=== PATIENT | female | born 1950 | race Caucasian/White ===

== ENCOUNTER 2020-06-10 14:31 | Outpatient (CLI) | payer MEDICARE, MEDICAID, SELFPAY ==
--- NOTE | 2020-06-10 | CT_ITS ---
WS: [id number] CT RIGHT KNEE, NONCONTRAST HISTORY: PATELLAR FX Technique: All CT scans at [facility] use at least one of these dose optimization techniq ues: automated exposure control; mA and/or kV adjustment per patient size (includes targeted exams wh ere dose is matched to clinical indication); or iterative reconstruction. DLP: 1289.89 mGycm COMPARISON: 05/31/2020 Nondisplaced complex flap fracture through the mid to inferior patella. There is no displacement or d istraction. No significant callus formation or healing. There is continued mild soft tissue edema ove r the anterior patella with no significant joint effusion. Very mild narrowing of the medial compartment. No additional fractures. CT/CT knee RT wo con* [id number] IMPRESSION: 1. Mildly comminuted but nondisplaced patellar fracture. No callus formation. 2. No additional fractures. 3. Mild persistent prepatellar soft tissue edema.
== END 2020-06-10 14:32 | disposition home or self-care (01) ==
LOC: RADWPI 14:37
PROVIDERS: Family Provider Internal Medicine; PCP Internal Medicine; Visit Provider Physician Assistant
DX: S82.044A Nondisplaced comminuted fracture of right patella, initial encounter for closed fracture (principal); X58.XXXA Exposure to other specified factors, initial encounter; R60.0 Localized edema
CPT/HCPCS: 73700

== ENCOUNTER 2020-07-07 10:44 | Emergency (ER) | payer MEDICARE, MEDICAID, SELFPAY ==
[2020-07-07 10:49] VITALS: BP 122/85; PULSE 93; RESP 18; TEMP 37.1; O2SAT 94; BMI 26.6
--- NOTE | 2020-07-07 11:17 | XR_ITS ---
WS: [id number] Portable AP upright chest, 07/07/2020 Clinical Data: cough, SOB Comparison: Frontal chest, 03/02/2017. Findings: There is a patchy opacity in the right lower lobe which may represent minimal pneumonia. Th e upper lobes are clear. There may also be a minimal patchy opacity in the left lower lobe. The aorti c arch and descending aorta are tortuous. No nodules, masses or effusions are seen. The heart is norm al. The pulmonary vascularity is not increased. No pneumothorax is seen. Osteoarthritis of the right shoulder is moderate. XR/XR chest 1V portable [id number] Impression: 1. Minimal patchy opacity in right lower lobe and also left lower lobe which co uld represent pneumonia and recommend repeat chest x-ray in one to 2 days. 2. Atherosclerosis.
--- NOTE | 2020-07-07 11:20 | ED_ITS ---
HPI - SOB/Dyspnea General: Chief Complaint: Shortness of Breath/Dyspnea Stated Complaint: SOB, EXPOSED TO COVID Time Seen by Provider: 07/07/20 11:04 Source: patient Mode of arrival: ambulatory Limitations: no limitations History of Present Illness: HPI Narrative: 70-year-old female patient with a history of diabetes mellitus and COPD who still smokes cigarettes presents to the emergency department with progressively worsening shortness of breath. He started with some sort of sinus issues about 3 weeks ago and progressively in the last week or so she feels like it has settled down in her lungs. She has difficulty breathing, uncontrollable cough, myalgias, but does not have a thermometer to check her temperature. MD elicited complaint: shortness of breath and cough Pertinent past history: COPD and diabetes Onset (ago): week(s) (3) Timing: constant and progressively worsening Severity: moderate Exacerbating factors: nothing Relieving factors: nothing Known history of: COPD and diabetes Associated symptoms: Reports chest congestion, chest pain, cough and myalgias; Deny abdominal pain, fever(s), nausea, palpitations, polydipsia, polyuria or vomiting Treatment prior to arrival: none Review of Systems General: Reports: 10 or more systems reviewed and unremarkable except in HPI and below Const: Denies: fever(s), chills or body aches Eyes: Denies: change in vision or blurry vision ENMT: Denies: throat pain, enlarged tonsils, odynophagia, hoarseness, mouth pain or swelling of lips/tongue Card: Reports: chest pain; Denies: palpitations, irregular heart rhythm, edema or swelling of feet/ankles Resp: Reports: chest congestion GI: Denies: abdominal pain, nausea or vomiting : Denies: flank pain, difficulty voiding, dysuria, urinary frequency, urinary urgency or urinary hesitancy Musc: Denies: neck pain, back pain or extremity swelling Skin/Breast: Denies: rash, pruritus or erythema Neuro: Denies: headache(s), numbness in extremities or weakness in extremities Endo: Denies: polyuria, polydipsia or tired all the time Physical Exam Const: COMMON NORMALS: no acute distress, average body habitus, patient oriented x3, no limitations, healthy appearing, alert and well nourished HENMT: COMMON NORMALS: normocephalic, atraumatic and moist oral mucous membranes HEAD & SCALP: normocephalic and atraumatic Neck/C-Spine: COMMON NORMALS: no meningeal signs and no JVD Chest: COMMONS NORMALS: normal inspection of the chest and normal palpation of entire chest wall Resp: COMMON NORMALS: normal respiratory effort, No retractions, No use of accessory muscles, clear to auscultation bilaterally and percussion normal AUSCULTATION: clear to auscultation bilaterally PERCUSSION: percussion normal Cardio: COMMON NORMALS: no JVD, regular rate, regular rhythm, S1 normal heart sound present, S2 normal heart sound present, No gallops present (Cardio), No clicks present (Cardio), No murmurs present (Cardio), No rub (Cardio) and Peripheral pulses 2+ throughout RATE: regular rate RHYTHM: regular rhythm HEART SOUNDS: S1 normal heart sound present and S2 normal heart sound present PERIPHERAL PULSES: Peripheral pulses 2+ throughout GI: COMMON NORMALS: Normal to inspection, nondistended, normoactive bowel sounds present, Soft to palpation, non-tender, No hepatosplenomegaly present, no masses and no bruits PALPATION: Yes Soft to palpation and Yes No hepatosplenomegaly present Extremity: COMMON NORMALS: normal to inspection, full ROM, capillary refill normal, no calf tenderness and no pedal edema Neuro: COMMON NORMALS: patient oriented x3 SENSORIUM/ORIENTATION: Yes alert MENINGEAL SIGNS: Yes no meningeal signs Skin: COMMON NORMALS: no rashes or lesions noted, no wounds, turgor normal, no jaundice, no petechiae and no mottling GENERAL SKIN EXAM: no rashes or lesions noted and turgor normal Course Reevaluation(s): Reevaluation #1: Discussed her lab and imaging findings with her. Chest x-ray suggestive of right lower lobe pneumonia, however CT of her lungs was negative for PE or pneumonia. Labs unremarkable for acute findings. We will manage as a case of COPD exacerbation I will discharge her home with oral steroids and azithromycin. She voiced understanding and is in agreement with the plan Time: 15:35 Vital Signs: Vital signs: Vital Signs Temperature 98.7 F 07/07/20 10:49 Pulse Rate 90 07/07/20 15:57 Respiratory Rate 20 H 07/07/20 15:57 Blood Pressure 110/85 07/07/20 15:57 Pulse Oximetry 94 07/07/20 15:57 MDM - SOB/Dyspnea MDM Narrative: Medical decision making narrative: Patient with clinical features consistent with a COPD exacerbation. She is discharged home with a prescription for azithromycin and prednisone. Evaluation does not show the need for hospital admission. Medical Records: Attestation: I reviewed the patient's medical records. Lab Data: Attestation: I reviewed the patient's lab results. Labs: Lab Results 07/07/20 07/07/20 07/07/20 Range/Units 11:35 11:35 11:35 WBC 9.3 (4.0-10.0) 10^3/ uL RBC 4.22 (4.1-5.3) 10^6/u L Hgb 13.0 (11.5-15.3) g/dL Hct 40.5 (37.0-47.0) % MCV 96.0 (81-99) fL MCH 30.8 (28.0-34.0) pg MCHC 32.1 (30.0-36.0) g/dL RDW 12.0 L (12.1-15.1) % Plt Count 226 (130-400) 10^3/c mm MPV 10.0 (7.4-10.4) fL Neut % (Auto) 66.2 % Lymph % (Auto) 25.2 % Potter % (Auto) 5.8 % Eos % (Auto) 1.8 % Baso % (Auto) 0.8 % Neut # (Auto) 6.18 (1.8-7.7) 10^3/u L Lymph # (Auto) 2.4 (0.8-4.8) 10^3/u L Potter # (Auto) 0.5 (0.2-0.9) 10^3/u L Eos # (Auto) 0.2 (0.0-0.8) 10^3/u L Baso # (Auto) 0.1 (0.0-0.1) 10^3/u L Nucleated RBC % (a uto) 0 % Nucleated RBCs # 0.0 /100WBC D-Dimer 0.69 H (0-0.59) ug/mIFE U Sodium 138 (136-145) mmol/L Potassium 4.7 (3.5-5.1) mmol/L Chloride 103 (98-107) mmol/L Carbon Dioxide 25 (22-29) mmol/L Anion Gap 14.7 (5-19) BUN 17 (8-23) mg/dL Creatinine 1.0 H (0.5-0.9) mg/dL GFR Calculation Not Reportable Glucose 137 H (65-115) mg/dL Calculated Osmolal ity 290 (285-295) mOsm/k g Lactic Acid (0.5-2.2) mmol/L Calcium 9.8 (8.5-10.5) mg/dL Total Bilirubin 0.3 (0.15-1.2) mg/dL AST 16 (0-32) U/L ALT 11 (0-33) U/L Alkaline Phosphata se 88 (35-105) IU/L C-Reactive Protein 3.2 (0.0-4.9) mg/L NT-Pro-B Natriuret Pep 74 (0-125) pg/mL Total Protein 7.1 (6.6-8.7) g/dL Albumin 4.3 (3.5-5.2) g/dL Globulin 2.8 (1.3-4.6) g/dL Influenza Type A A g (Negative) Influenza Type B A g (Negative) SARS-CoV-2 Ag (Rap id) (Negative) 07/07/20 07/07/20 07/07/20 Range/Units 11:35 11:35 12:11 WBC (4.0-10.0) 10^3/ uL RBC (4.1-5.3) 10^6/u L Hgb (11.5-15.3) g/dL Hct (37.0-47.0) % MCV (81-99) fL MCH (28.0-34.0) pg MCHC (30.0-36.0) g/dL RDW (12.1-15.1) % Plt Count (130-400) 10^3/c mm MPV (7.4-10.4) fL Neut % (Auto) % Lymph % (Auto) % Potter % (Auto) % Eos % (Auto) % Baso % (Auto) % Neut # (Auto) (1.8-7.7) 10^3/u L Lymph # (Auto) (0.8-4.8) 10^3/u L Potter # (Auto) (0.2-0.9) 10^3/u L Eos # (Auto) (0.0-0.8) 10^3/u L Baso # (Auto) (0.0-0.1) 10^3/u L Nucleated RBC % (a uto) % Nucleated RBCs # /100WBC D-Dimer (0-0.59) ug/mIFE U Sodium (136-145) mmol/L Potassium (3.5-5.1) mmol/L Chloride (98-107) mmol/L Carbon Dioxide (22-29) mmol/L Anion Gap (5-19) BUN (8-23) mg/dL Creatinine (0.5-0.9) mg/dL GFR Calculation Glucose (65-115) mg/dL Calculated Osmolal ity (285-295) mOsm/k g Lactic Acid 1.2 (0.5-2.2) mmol/L Calcium (8.5-10.5) mg/dL Total Bilirubin (0.15-1.2) mg/dL AST (0-32) U/L ALT (0-33) U/L Alkaline Phosphata se (35-105) IU/L C-Reactive Protein (0.0-4.9) mg/L NT-Pro-B Natriuret Pep (0-125) pg/mL Total Protein (6.6-8.7) g/dL Albumin (3.5-5.2) g/dL Globulin (1.3-4.6) g/dL Influenza Type A A g Negative (Negative) Influenza Type B A g Negative (Negative) SARS-CoV-2 Ag (Rap id) Negative (Negative) Imaging Data^: CXR: Radiologist's impression: [address] [address] XRay Report Signed Patient: Fany Moctezuma #: [id number] : 9Acct#:[id number] Age/Sex: 70 / FADM Date: 07/07/20 Loc: ERRoom/Bed: Attending Dr: Ordering Provider/Ordering MD: Cor[place] [facility] [place]: 07/07[place]20 Procedure(s): XR chest 1V portable [id number] Accession Number(s): [id number] Report Number: [id number] WS: [id number] Portable AP upright chest, 07/07/2020 Clinical Data: cough, SOB Comparison: Frontal chest, 03/02/2017. Findings: There is a patchy opacity in the right lower lobe which may represent minimal pneumonia. The upper lobes are clear. There may also be a minimal patchy opacity in the left lower lobe. The aortic arch and descending aorta are tortuous. No nodules, masses or effusions are seen. The heart is normal. The pulmonary vascularity is not increased. No pneumothorax is seen. Osteoarthritis of the right shoulder is moderate. XR/XR chest 1V portable [id number] Impression: 1. Minimal patchy opacity in right lower lobe and also left lower lobe which could represent pneumonia and recommend repeat chest x-ray in one to 2 days. 2. Atherosclerosis. Dictated By:Alisha Felix MD Signed By:Alisha Felix MDSigned Date/Time:07/07/208 DD/ 1136 CTA Chest: Radiologist's impression: [place] [address] CT Scan Report Signed Patient: Fany Moctezuma #: [id number] : 9Acct#:[id number] Age/Sex: 70 / FADM Date: 07/07/20 Loc: [facility]/Bed: Attending Dr: Ordering Provider/Ordering MD: Cori [place] [facility] [place] of Service: 07/07/20 Procedure(s): CT angio chest PE protcl [id number] Accession Number(s): [id number] Report Number: [id number] WS: [id number] CTA OF THE CHEST WITH PULMONARY EMBOLISM PROTOCOL TECHNIQUE: High-resolution contrast enhanced CTA of the chest with coronal and sagittal reformatted images with pulmonary embolism protocol. MIP images are also reviewed. CLINICAL INFORMATION: SOB, elevated d-dimer COMPARISON: None. DLP: 504.[address] scans at [facility] use at least one of these dose opt imization techniques: automated exposure control; mA and/or kV adjustment per patient size (includes targeted exams where dose is matched to clinical indication); or iterative reconstruction. FINDINGS: Proximal main pulmonary arteries are normal. Segmental and subsegmental pulmonary arteries appear normal. No evidence of pulmonary embolus. Normal caliber thoracic aorta. Mild aortic calcification. Chronic anterior wedging in the mid thoracic spine with thoracic kyphosis. Moderate chronic emphysematous changes. No acute pulmonary infiltrates. Noncalcified pulmonary nodule along the lingula measuring 5.6 mm. No mediastinal or hilar lymphadenopathy. Bilateral breast implants. Adrenal glands are normal. CT/CT angio chest PE protcl [id number] IMPRESSION: 1. No evidence for pulmonary embolus. 2. Moderate chronic emphysematous changes. No acute pulmonary infiltrates. 3. No mediastinal or hilar lymphadenopathy. 4. Normal caliber thoracic aorta. 5. Mild thoracic kyphosis with chronic appearing anterior wedging and mild compression deformities in the mid and upper thoracic spine at T6 T8, T9, and T10 Dictated By:Terrance Sandoval MD Signed By:Terrance Sandoval MDSigned Date/Time:07/07/201523 DD/ 17 Discharge Plan Discharge Patient Disposition: Home Clinical Impression: Acute exacerbation of chronic obstructive airways disease Condition: Stable Prescriptions: New prednisone 20 mg tablet 60 mg PO DAILY 5 Days Qty: 15 RF: 0 azithromycin 250 mg tablet See Rx Instructions .ROUTE .COMPLEX Qty: 6 RF: 0 Continued atorvastatin 20 mg tablet 20 mg PO DAILY RF: 0 hydrocodone-acetaminophen 5-325 mg tablet 1 tab PO BID PRN (Reason: Pain) RF: 0 lisinopril 20 mg tablet 20 mg PO DAILY RF: 0 Aspirin Low Dose 81 mg Tablet,Delayed Release (Dr/Ec) 81 mg PO DAILY RF: 0 Mucus Relief 200 mg Tablet 200 mg PO BID RF: 0 alprazolam 0.5 mg tablet 0.5 mg PO TID PRN (Reason: Anxiety) RF: 0 citalopram 20 mg tablet 20 mg PO DAILY RF: 0 Vitamin C 250 mg Tablet 250 mg PO DAILY RF: 0 montelukast 10 mg tablet 10 mg PO DAILY PRN (Reason: allergies) RF: 0 Ventolin HFA 90 mcg/actuation HFA aerosol inhaler 2 puff INHALATION Q4H PRN (Reason: Shortness Of Breath) RF: 0 buspirone 15 mg tablet 15 mg PO BID RF: 0 duloxetine 60 mg capsule,delayed release(DR/EC) 60 mg PO DAILY RF: 0 Symbicort 160-4.5 mcg/actuation HFA aerosol inhaler 2 puff INHALATION BID RF: 0 One-A-Day Womens Formula 18 mg iron-400 mcg-500 mg Tablet 1 tab PO DAILY RF: 0 Discharge Orders: Discharge Order (Routine); Ordered 07/07/20 Ordered By: Cori Anderson Referrals: Sushant Ogden DO [Primary Care Provider] - 1-3 days Discharge Diet: Usual diet Discharge Activity: Increase activity as tolerated Patient Instructions: Chronic Obstructive Pulmonary Disease (ED) Activity Restrictions/Additional Instructions: Return for any new or worsening symptoms. Follow-up with your primary care provider within 3 days. Take the medications as prescribed. Drink plenty of fluids to keep well-hydrated. Discharge Date/Time: 07/07/20 15:59 Coding Level of Care Code ED Residential Green Building Designer for Chg Fwd Exam Comprehensive
[2020-07-07 11:47] LABS: Basophils # 0.1 10^3/uL (0.0-0.1); Basophils % 0.8 %; Eosinophils # 0.2 10^3/uL (0.0-0.8); Eosinophils % 1.8 %; Hematocrit 40.5 % (37.0-47.0); Lymphocytes # 2.4 10^3/uL (0.8-4.8); Lymphocytes % 25.2 %; Mean Corpuscular HGB Conc 32.1 g/dL (30.0-36.0); Mean Corpuscular Hemoglobin 30.8 pg (28.0-34.0); Monocytes # 0.5 10^3/uL (0.2-0.9); Monocytes % 5.8 %; Neutrophils # 6.18 10^3/uL (1.8-7.7); Neutrophils % 66.2 %; Nucleated Red Blood Cells % 0 %; Platelet Count 226 10^3/cmm (130-400); Red Blood Count 4.22 10^6/uL (4.1-5.3); White Blood Count 9.3 10^3/uL (4.0-10.0)
[2020-07-07 12:03] LABS: Lactic Sepsis W/Reflex 1.2 mmol/L (0.5-2.2)
[2020-07-07 12:05] LABS: D Dimer 0.69 ug/mIFEU (0-0.59)
[2020-07-07 12:06] LABS: SARS Covid-2 Antigen Negative (Negative)
[2020-07-07 12:12] LABS: Alanine Aminotransferase 11 U/L (0-33); Albumin Level 4.3 g/dL (3.5-5.2); Alkaline Phosphatase 88 IU/L (35-105); Anion Gap 14.7 (5-19); Aspartate Amino Transferase 16 U/L (0-32); Blood Urea Nitrogen 17 mg/dL (8-23); C Reactive Protein 3.2 mg/L (0.0-4.9); Calcium 9.8 mg/dL (8.5-10.5); Carbon Dioxide 25 mmol/L (22-29); Chloride 103 mmol/L (98-107); Globulin 2.8 g/dL (1.3-4.6); Glucose 137 mg/dL (65-115); NT Pro B Type Natriuretic Pept 74 pg/mL (0-125); Osmolality Calculated 290 mOsm/kg (285-295); Potassium 4.7 mmol/L (3.5-5.1); Sodium 138 mmol/L (136-145); Total Bilirubin 0.3 mg/dL (0.15-1.2); Total Protein 7.1 g/dL (6.6-8.7)
[2020-07-07 12:52] LABS: Influenza A by IFA Negative (Negative); Influenza B by IFA Negative (Negative)
--- NOTE | 2020-07-07 13:12 | CT_ITS ---
WS: [id number] CTA OF THE CHEST WITH PULMONARY EMBOLISM PROTOCOL TECHNIQUE: High-resolution contrast enhanced CTA of the chest with coronal and sagittal reformatted i mages with pulmonary embolism protocol. MIP images are also reviewed. CLINICAL INFORMATION: SOB, elevated d-dimer COMPARISON: None. DLP: 504.[address] scans at [facility] use at least one of these dose optimization techniques: automat ed exposure control; mA and/or kV adjustment per patient size (includes targeted exams where dose is matched to clinical indication); or iterative reconstruction. FINDINGS: Proximal main pulmonary arteries are normal. Segmental and subsegmental pulmonary arteries appear nor mal. No evidence of pulmonary embolus. Normal caliber thoracic aorta. Mild aortic calcification. 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 Moderate chronic emphysematous changes. No acute pulmonary infiltrates. Noncalcified pulmonary nodule along the lingula measuring 5.6 mm. No mediastinal or hilar lymphadenopathy. Bilateral breast implan ts. Adrenal glands are normal. CT/CT angio chest PE protcl [id number] IMPRESSION: 1. No evidence for pulmonary embolus. 2. Moderate chronic emphysematous changes. No acute pulmonary infiltrates. 3. No mediastinal or hilar lymphadenopathy. 4. Normal caliber thoracic aorta. 5. Mild thoracic kyphosis with chronic appearing anterior wedging and mild com pression deformities in the mid and upper thoracic spine at T6 T8, T9, and T10
[2020-07-07 13:21] VITALS: BP 118/84; PULSE 92; RESP 20; O2SAT 93
[2020-07-07] MEDS: levofloxacin-dextrose 5 % 750 MG/150 ML PREMIX 100 MG IV (13:24)
[2020-07-07] MEDS: iodixanol 320 mg/mL 100mL Btl IV (15:09)
[2020-07-07 15:57] VITALS: BP 110/85; PULSE 90; RESP 20; O2SAT 94
== END 2020-07-07 15:59 | disposition home or self-care (01) ==
PROVIDERS: Emergency Provider Family Medicine; Family Provider Internal Medicine; PCP Internal Medicine
DX: J44.1 Chronic obstructive pulmonary disease with (acute) exacerbation (principal); Z79.82 Long term (current) use of aspirin; R07.9 Chest pain, unspecified
CPT/HCPCS: 12345; 36415; 71045; 71275; 80053; 83605; 83880; 85025; 85378; 86140; 87426; 87804; 96365; 99282; 99284; J1956; Q9967

== ENCOUNTER 2022-01-29 06:12 | Emergency (ER) | payer MEDICARE, MEDICAID, SELFPAY ==
[2022-01-29 06:12] VITALS: BP 97/58; PULSE 84; RESP 24; TEMP 36.8; O2SAT 90; BMI 23.0
--- NOTE | 2022-01-29 06:28 | ED_ITS ---
HPI - Fall General: Chief Complaint: Fall Stated Complaint: fall Time Seen by Provider: 01/29/22 06:13 Source: patient Mode of arrival: EMS Limitations: no limitations History of Present Illness: 71-year-old female presents to the emergency room after a fall. She fell last night at around 1030 was unable to get up she essentially remained on the floor until EMS came this morning she did admit she had hit her head she is not sure if she lost consciousness her biggest complaint is right lateral rib pain. She is also complaining of some low back pain. Patient also has a systemic rash very coalesced in the arms worriment small slightly raised rash on the trunk that is more diffuse. Mildly pruritic she has had this for several weeks she has seen primary care doctor about it once it resolved and then returned again. MD complaint: fall Onset (ago): hour(s) Fall from: standing Fall witnessed: no Place fall occurred: home Loss of consciousness: Unsure Prolonged down time: yes and hour(s) (7) Context: tripped/slipped Location of injury: head and chest (Right lateral) Associated symptoms-after fall: Reports chest pain and weakness; Denies abdominal pain, confusion, difficulty walking, headache(s), hematuria, li ghtheadedness, neck pain, numbness, short of breath or vertigo Review of Systems Const: Denies: fever(s), chills, body aches, change in appetite, fatigue or malaise ENMT: Denies: throat pain, ear or mastoid pain, nasal discharge or nasal congestion Card: Reports: chest pain; Denies: palpitations, irregular heart rhythm or lightheadedness Resp: Denies: dyspnea, productive cough or non-productive cough GI: Denies: abdominal pain, nausea or vomiting : Denies: flank pain, difficulty voiding, dysuria or hematuria Musc: Reports: back pain; Denies: neck pain Skin/Breast: Reports: rash, pruritus and erythema Neuro: Denies: headache(s), difficulty walking, vertigo or confusion Armando/Lymph: Reports: easy bruising All/Imm: Denies: urticaria, throat swelling, tongue swelling, facial swelling or acute wheezing PFSH ED PFSH: Medical History (Updated 01/29/22 @ 14:28 by Evans Pal DO) COPD with acute bronchitis Hyperlipidemia Hypertension Social History (Updated 01/29/22 @ 14:28 by Evans Pal DO) Smoking and tobacco status: former smoker Physical Exam Const: GENERAL APPEARANCE: cooperative and comfortable ORIENTATION/CONSCIOUSNESS: Yes awake, Yes oriented to person, Yes oriented to place and Yes oriented to time HENMT: COMMON NORMALS: normocephalic, atraumatic, hearing grossly normal bilaterally, EAC's normal, TM's normal bilaterally, Normal nasal mucous membranes and turbinates present, moist oral mucous membranes and oropharynx n ormal HEAD & SCALP: normocephalic and atraumatic NOSE: Normal nasal mucous membranes and turbinates present EXTERNAL AUDITORY CANAL: EAC's normal TYMPANIC MEMBRANE: TM's normal bilaterally Eye: COMMON NORMALS: Equal, round and reactive pupils present, EOMs intact bilaterally, conjunctivae normal and no scleral icterus CONJUNCTIVA: Yes conjunctivae normal PUPIL: Yes Equal, round and reactive pupils present Neck/C-Spine: COMMON NORMALS: no JVD Chest: OTHER: Tenderness right lateral ribs at the anterior axillary line no crepitus no palpable subcu air Resp: COMMON NORMALS: normal respiratory effort, No retractions and No use of accessory muscles AUSCULTATION: wheezes (Scant wheezes diminished breath sounds) and diminished lung sounds Cardio: COMMON NORMALS: no JVD, regular rate, regular rhythm and No murmurs pr esent (Cardio) RATE: regular rate RHYTHM: regular rhythm GI: COMMON NORMALS: Soft to palpation and No hepatosplenomegaly present AUSCULTATION: Yes normoactive bowel sounds PALPATION: Yes Soft to palpation, No Tenderness to palpation present (GI), No Guarding due to palpation present (GI) and Yes No hepatosplenomegaly present : COMMON NORMALS: Yes no CVA tenderness BLADDER/KIDNEY EXAM: Yes no CVA tenderness Back/Pelvis: COMMON NORMALS: no CVA tenderness Extremity: COMMON NORMALS: normal to inspection, capillary refill normal, no clubbing, cyanosis or edema, no calf tenderness and no pedal edema Neuro: SENSORIUM/ORIENTATION: Yes oriented to person, Yes oriented to place and Yes oriented to time Skin: NARRATIVE SKIN EXAM: Significant ecchymosis on the dorsum of the forearms. Coalesced mildly indurated rash on the upper extremities diffuse rash on the lower extremities and torso is mildly raised and erythematous, no pustules no vesicles. No wheal or flare. Course Vital Signs: Vital signs: Vital Signs Temperature 98.1 F 01/29/22 12:29 Pulse Rate 84 01/29/22 12:29 Respiratory Rate 22 H 01/29/22 12:29 Blood Pressure 136/75 01/29/22 12:29 Pulse Oximetry 93 01/29/22 12:29 MDM - Fall Medical Decision Making Labs and imaging reviewed. Patient is anxious to go home. We will go ahead and discharge her home she does have a rash but she has had this multiple times we will put her on a steroid pack and cetirizine twice daily. Mild increase in her creatinine we will have her follow-up with her primary care doctor within a week to reevaluate.CT of her lumbar spine head CT and cervical spine were all negative she did have a rib fracture on rib x-rays. Give her hydrocodone for that. UA today is unremarkable. Any worsening or change symptoms return to the emergency room Medical Records I reviewed the patient's medical records. Lab Data I reviewed the patient's lab results. : 01/29/22 06:46 01/29/22 06:46 Radiology Impressions Cervical Spine CT 01/29/22 06:29 IMPRESSION: No acute abnormality is seen in the cervical spine. Head CT 01/29/22 06:29 IMPRESSION: 1. No acute intracranial abnormality. 2. Chronic atrophy with chronic white matter ischemic changes. Ribs X-Ray 01/29/22 06:29 IMPRESSION: 1. Minimally displaced fracture of the lateral aspect of the right 10th rib. No other acute fractures. No pneumothorax. Lumbar Spine CT 01/29/22 06:41 IMPRESSION: No acute findings. Laboratory Results WBC 19.1 10^3/uL (4.0-10.0) H 01/29/22 06:46 RBC 4.22 10^6/uL (4.1-5.3) 01/29/22 06:46 Hgb 13.5 g/dL (11.5-15.3) 01/29/22 06:46 Hct 40.2 % (37.0-47.0) 01/29/22 06:46 MCV 95.3 fl (81-99) 01/29/22 06:46 MCH 32.0 pg (28.0-34.0) 01/29/22 06:46 MCHC 33.6 g/dL (30.0-36.0) 01/29/22 06:46 RDW 13.2 % (12.1-15.1) 01/29/22 06:46 Plt Count 188 10^3/cmm (130-400) 01/29/22 06:46 MPV 10.9 fL (7.4-10.4) H 01/29/22 06:46 Lymph % (Auto) Not Reportable 01/29/22 06:46 [place] % (Auto) Not Reportable 01/29/22 06:46 Lymph # (Auto) Not Reportable 01/29/22 06:46 [place] # (Auto) Not Reportable 01/29/22 06:46 Total Counted 100 (0-100) 01/29/22 06:46 Atypical Lymphs % 2.0 % (0-5) 01/29/22 06:46 Absolute Neutrophils 17.8 10^3/cmm (1.4-6.5) H 01/29/22 06:46 Segmented Neutrophils 60 % 01/29/22 06:46 Abs Segm Neuts (Man) 11.5 10/cmm (1.6-7.1) H 01/29/22 06:46 Band Neutrophils 33.0 % 01/29/22 06:46 Abs Band Neuts (Man) 6.3 10^3/cmm (0.0-1.2) H 01/29/22 06:46 Absolute Lymphocytes 0.6 10^3/cmm (1.2-3.4) L 01/29/22 06:46 Lymphocytes (Manual) 1 % 01/29/22 06:46 Monocytes (Manual) 1.0 % 01/29/22 06:46 Absolute Monocytes 0.2 10^3/cmm (0.1-0.6) 01/29/22 06:46 Eosinophils (Manual) 3 % 01/29/22 06:46 Absolute Eosinophils 0.5 10^3/cmm (0.0-0.7) 01/29/22 06:46 Basophils (Manual) 0.0 % 01/29/22 06:46 Absolute Basophils 0.0 10^3/cmm (0.0-0.2) 01/29/22 06:46 Platelet Estimate Normal (Normal) 01/29/22 06:46 Sodium 133 mmol/L (136-145) L 01/29/22 06:46 Potassium 4.0 mmol/L (3.5-5.1) 01/29/22 06:46 Chloride 95 mmol/L (98-107) L 01/29/22 06:46 Carbon Dioxide 19 mmol/L (22-29) L 01/29/22 06:46 Anion Gap 23.0 (5-19) H 01/29/22 06:46 BUN 32 mg/dL (8-23) H 01/29/22 06:46 Creatinine 1.9 mg/dL (0.5-0.9) H 01/29/22 06:46 GFR Calculation Not Reportable 01/29/22 06:46 Glucose 105 mg/dL (65-115) 01/29/22 06:46 Calculated Osmolality 283 mOsm/kg (285-295) L 01/29/22 06:46 Calcium 8.7 mg/dL (8.5-10.5) 01/29/22 06:46 Creatine Kinase 120 U/L (26-192) 01/29/22 06:46 Urine Color Dark yellow (Yellow) 01/29/22 08:35 Urine Appearance Clear (CLEAR) 01/29/22 08:35 Urine pH 5 (5-7) 01/29/22 08:35 Ur Specific [place] 1.015 (1.005-1.030) 01/29/22 08:35 Urine Protein Neg (Negative) 01/29/22 08:35 Urine Glucose (UA) Norm (Normal) 01/29/22 08:35 Urine Ketones Negative (Negative) 01/29/22 08:35 Urine Blood Neg (Negative) 01/29/22 08:35 Urine Nitrate Negative (Negative) 01/29/22 08:35 Urine Bilirubin Neg (Negative) 01/29/22 08:35 Urine Urobilinogen Norm mg/dL (Negative) 01/29/22 08:35 Ur Leukocyte Esterase Negative (Negative) 01/29/22 08:35 Discharge Plan Discharge Clinical Impression: Fall, Fracture of rib, Rash of body Prescriptions: New hydrocodone-acetaminophen 5-325 mg tablet 1 tab PO Q6H PRN (Reason: pain) Qty: 15 0RF Medrol (Parker) 4 mg tablets,dose pack See Rx Instructions .ROUTE .COMPLEX Qty: 21 0RF Rx Instructions: orally per package directions cetirizine 10 mg tablet 10 mg PO BID Qty: 60 0RF No Action atorvastatin 20 mg tablet 20 mg PO BEDTIME 0RF hydrocodone-acetaminophen 5-325 mg tablet 1 tab PO BID PRN (Reason: Pain) 0RF lisinopril 20 mg tablet 20 mg PO DAILY 0RF aspirin [Aspirin Low Dose] 81 mg Tablet,Delayed Release (Dr/Ec) 81 mg PO QPM 0RF alprazolam 0.5 mg tablet 0.5 mg PO TID PRN (Reason: Anxiety) 0RF montelukast 10 mg tablet 10 mg PO DAILY PRN (Reason: allergies) 0RF albuterol sulfate [Ventolin HFA] 90 mcg/actuation HFA aerosol inhaler 2 puff INHALATION Q4H PRN (Reason: Shortness Of Breath) 0RF duloxetine 60 mg capsule,delayed release(DR/EC) 60 mg PO BID 0RF budesonide-formoterol [Symbicort] 160-4.5 mcg/actuation HFA aerosol inhaler 2 puff INHALATION BID 0RF One-A-Day Womens Formula 18 mg iron-400 mcg-500 mg Tablet 1 tab PO DAILY 0RF citalopram 40 mg tablet 40 mg PO QAM 0RF Mucus Relief 200 mg Tablet See Rx Instructions .ROUTE .COMPLEX 0RF Rx Instructions: 200 mg po qam and 100mg po bedtime Vitamin C 500 mg Tablet 500 mg PO DAILY 0RF divalproex 500 mg tablet extended release 24 hr 500 mg PO BID 0RF nitrofurantoin monohyd/m-cryst 100 mg capsule 100 mg PO BID 0RF Discharge Orders: Discharge ED (Routine); Ordered 01/29/22 Ordered By: Evans Pal Referrals: Sushant Ogden DO [Primary Care Provider] - Discharge Diet: Usual diet Discharge Activity: Increase activity as tolerated Patient Instructions: Opioid Safety Activity Restrictions/Additional Instructions: Follow-up with your primary care doctor within the next 7 to 10 days Coding Level of Care Code ED Legal Referee for Chg Fwd Exam Comprehensive
--- NOTE | 2022-01-29 06:29 | CTR_ITS ---
PROCEDURE INFORMATION: Exam: CT Head Without Contrast Exam date and time: 01/29/2022 6:50 AM Age: 71 years old Clinical indication: Injury or trauma; Blunt trauma (contusions or hematomas); Consciousness not specified; Injury details: Fall x last night. Unknown how long PT was down. Unknown loc. ; Additional info: Fall, closed head injury TECHNIQUE: Imaging protocol: Computed tomography of the head without contrast. Radiation optimization: All CT scans at this facility use at least one of these dose optimization techniques: automated exposure control; mA and/or kV adjustment per patient size (includes targeted exams where dose is matched to clinical indication); or iterative reconstruction. COMPARISON: CT head wo con* [id number] 03/02/2017 11:59 AM RADIATION DOSE METRICS: Total DLP (mGy-cm): 1395.5 FINDINGS: Brain: No intracranial hemorrhage, edema or other acute abnormalities are seen in the brain. There is generalized chronic atrophy with prominence of the ventricles and sulci. There is patchy decreased white matter density which is consistent with chronic small vessel white matter ischemia. Cerebral ventricles: See Brain finding. Paranasal sinuses: Visualized sinuses are unremarkable. No fluid levels. Mastoid air cells: Visualized mastoid air cells are well aerated. Bones/joints: Unremarkable. No acute fracture. Soft tissues: Unremarkable. CT/CT head wo con* [id number] IMPRESSION: 1. No acute intracranial abnormality. 2. Chronic atrophy with chronic white matter ischemic changes.
--- NOTE | 2022-01-29 06:29 | CTR_ITS ---
PROCEDURE INFORMATION: Exam: CT Cervical Spine Without Contrast Exam date and time: 01/29/2022 6:53 AM Age: 71 years old Clinical indication: Injury or trauma; Blunt trauma; Injury details: Fall x last night. Neck pain TECHNIQUE: Imaging protocol: Computed tomography images of the cervical spine without contrast. Radiation optimization: All CT scans at this facility use at least one of these dose optimization techniques: automated exposure control; mA and/or kV adjustment per patient size (includes targeted exams where dose is matched to clinical indication); or iterative reconstruction. COMPARISON: CT head wo con* [id number] 01/29/2022 6:50 AM RADIATION DOSE METRICS: Total DLP (mGy-cm): 312.17 FINDINGS: Bones/joints: No acute fracture. Normal alignment. Discs/Spinal canal/Neural foramina: Chronic degenerative changes are present especially from C5-C7 with disc space narrowing sclerosis and osteophytes. There is moderate spinal stenosis and neural foraminal narrowing. No severe spinal canal stenosis. Lungs: Emphysematous changes are present in the lung apices. Vasculature: Bilateral carotid artery calcification. Soft tissues: Unremarkable. CT/CT cervical spin wo con* [id number] IMPRESSION: No acute abnormality is seen in the cervical spine.
--- NOTE | 2022-01-29 06:29 | XR_ITS ---
WS: [id number] Exam: XR ribs RT mn 3V w CXR1V [id number] Date/Time of Exam: 01/29/2022 7:00 AM Reason For Exam: w PA cxr Comparison 01/19/2021. There is a minimally displaced fracture of the lateral right 10th rib. No other acute fractures are s een. The lungs are clear and fully expanded. Normal cardiomediastinal silhouette. No pleural effusion s. Advanced degeneration of the right glenohumeral joint. Calcified encapsulated bilateral breast imp lants. XR/XR ribs RT mn 3V w CXR1V [id number] IMPRESSION: 1. Minimally displaced fracture of the lateral aspect of the right 10th rib. No other acute fractures. No pneumothorax.
--- NOTE | 2022-01-29 06:41 | CTR_ITS ---
PROCEDURE INFORMATION: Exam: CT Lumbar Spine Without Contrast Exam date and time: 01/29/2022 6:56 AM Age: 71 years old Clinical indication: Injury or trauma; Blunt trauma (contusions or hematomas); Injury details: Fall x last night; Additional info: Pain TECHNIQUE: Imaging protocol: Computed tomography images of the lumbar spine without contrast. Total images: 363 Radiation optimization: All CT scans at this facility use at least one of these dose optimization techniques: automated exposure control; mA and/or kV adjustment per patient size (includes targeted exams where dose is matched to clinical indication); or iterative reconstruction. COMPARISON: CT Abdomen/Pelvis Renal [id number] 03/02/2017 12:03 PM RADIATION DOSE METRICS: Total DLP (mGy-cm): 1901.29 FINDINGS: Vertebrae: No acute fracture. Normal alignment. Discs/Spinal canal/Neural foramina: L4-S1 Broad-based mild posterior disc bulge. Gallbladder and bile ducts: Prior cholecystectomy noted. Vasculature: Atherosclerosis is evident. Soft tissues: Unremarkable. CT/CT lumbar spine wo con* [id number] IMPRESSION: No acute findings.
[2022-01-29 06:58] LABS: Hematocrit 40.2 % (37.0-47.0); Hemoglobin 13.5 g/dL (11.5-15.3); Mean Corpuscular HGB Conc 33.6 g/dL (30.0-36.0); Mean Corpuscular Volume 95.3 fl (81-99); Mean Platelet Volume 10.9 fL (7.4-10.4); Platelet Count 188 10^3/cmm (130-400); Red Blood Count 4.22 10^6/uL (4.1-5.3); Red Cell Distribution Width 13.2 % (12.1-15.1); White Blood Count 19.1 10^3/uL (4.0-10.0)
[2022-01-29 07:18] LABS: Blood Urea Nitrogen 32 mg/dL (8-23); Calcium 8.7 mg/dL (8.5-10.5); Carbon Dioxide 19 mmol/L (22-29); Chloride 95 mmol/L (98-107); Creatine Phosphokinase 120 U/L (26-192); Glucose 105 mg/dL (65-115); Osmolality Calculated 283 mOsm/kg (285-295); Sodium 133 mmol/L (136-145)
[2022-01-29 07:25] LABS: Slide Review Slide Review Perform
[2022-01-29 07:28] LABS: Absolute Eosinophils 0.5 10^3/cmm (0.0-0.7); Absolute Segmented Neutrophil 11.5 10/cmm (1.6-7.1); Band Neutrophils Absolute 6.3 10^3/cmm (0.0-1.2); Eosinophils 3 %; Lymphocytes 1 %; Lymphocytes Absolute 0.6 10^3/cmm (1.2-3.4); Monocytes Absolute 0.2 10^3/cmm (0.1-0.6); Segmented Neutrophils 60 %; Total Cells Counted 100 (0-100)
[2022-01-29 07:29] LABS: Absolute Neutrophil 17.8 10^3/cmm (1.4-6.5); Platelet Estimate Normal (Normal)
--- NOTE | 2022-01-29 07:33 | PC.NURSE ---
WHILE AT BEDSIDE PT IS IN NAD. PT DENIES ANY NEEDS. PT HAS CALL LIGHT WITHIN REACH DEMO SHOWN TO PT. PT BED IS IN LOW POSITION WITH SIDE RAILS UP X 2.
[2022-01-29 08:42] LABS: Add Urine Microscopic? NO; Charge for UA Resulting for Rev
[2022-01-29 08:47] LABS: Bilirubin Urine Neg (Negative); Blood Urine Neg (Negative); Glucose Urine UA Norm (Normal); Ketones Urine Negative (Negative); Leukocyte Esterase Urine Negative (Negative); Nitrate Urine Negative (Negative); Protein Urine Neg (Negative); Specific Gravity, Urine 1.015 (1.005-1.030); Urine Appearance Clear (CLEAR); Urine Color Dark Yellow (Yellow); Urobilinogen Urine Norm (Negative); pH Urine 5 (5-7)
[2022-01-29] MEDS: lactated ringers 1,000 ML 999 ML IV (09:37)
--- NOTE | 2022-01-29 09:54 | PC.NURSE ---
PROVIDED PT WITH WATER AND HELPED ADJUST PT IN BED PER PT REQUEST AND DR. MAIA BELLA. PT DENIES ANY FURTHER NEEDS AT THIS TIME.
--- NOTE | 2022-01-29 10:17 | PC.NURSE ---
PT staff stopped at desk and stated that patient has a walker at home- she has everything she needs at home- patient is refusing any home health- PT staff did go through several exercises that patient can do at home. - this RN updated primary RN
--- NOTE | 2022-01-29 11:12 | PC.NURSE ---
while at bedside pt adjusted in bed. pt denies any further needs at this time.
[2022-01-29 11:16] VITALS: BP 97/70; PULSE 98; RESP 16; O2SAT 94
[2022-01-29 12:29] VITALS: BP 136/75; PULSE 84; RESP 22; TEMP 36.7; O2SAT 93
== END 2022-01-29 12:31 | disposition home or self-care (01) ==
PROVIDERS: Emergency Provider Family Medicine; PCP Internal Medicine
DX: S22.31XA Fracture of one rib, right side, initial encounter for closed fracture (principal); W19.XXXA Unspecified fall, initial encounter; R21 Rash and other nonspecific skin eruption; R79.89 Other specified abnormal findings of blood chemistry; M54.50 Low back pain, unspecified; I10 Essential (primary) hypertension; J44.9 Chronic obstructive pulmonary disease, unspecified
CPT/HCPCS: 70450; 71101; 72125; 72131; 80048; 81003; 82550; 85007; 85025; 96360; 97161; 99284

== ENCOUNTER 2022-09-06 14:13 | Observation (INO) | payer MEDICARE, MEDICAID, SELFPAY ==
[2022-09-06] VITALS (9 sets, daily range): BP systolic 114–123; BP diastolic 66–74; PULSE 85–91; RESP 16–22; TEMP 36.6–36.7; O2SAT 85–98; BMI 26.2
--- NOTE | 2022-09-06 14:50 | XRR_ITS ---
PROCEDURE INFORMATION: Exam: XR Right Knee Exam date and time: 09/06/2022 4:27 PM Age: 72 years old Clinical indication: Injury or trauma; Fall; Blunt trauma; Knee; Right TECHNIQUE: Imaging protocol: Radiologic exam of the Right knee. Views: 3 views. COMPARISON: No relevant prior studies available. FINDINGS: Bones/joints: Negative for acute bony abnormality. Soft tissues: Normal. XR/XR knee RT 3V* [id number] IMPRESSION: No acute findings.
--- NOTE | 2022-09-06 14:50 | XRR_ITS ---
PROCEDURE INFORMATION: Exam: XR Chest Exam date and time: 09/06/2022 4:27 PM Age: 72 years old Clinical indication: Injury or trauma; Fall; Blunt trauma (contusions or hematomas) TECHNIQUE: Imaging protocol: Radiologic exam of the chest. Views: 1 view. COMPARISON: CR XR ribs RT mn 3V w CXR1V [id number] 01/29/2022 6:38 AM FINDINGS: Lungs: Unremarkable. No consolidation. Pleural spaces: Unremarkable. No pleural effusion. No pneumothorax. Heart/Mediastinum: Unremarkable. No cardiomegaly. Bones/joints: Unremarkable. XR/XR chest 1V portable [id number] IMPRESSION: No acute findings.
--- NOTE | 2022-09-06 14:53 | CTR_ITS ---
PROCEDURE INFORMATION: Exam: CT Head Without Contrast Exam date and time: 09/06/2022 3:27 PM Age: 72 years old Clinical indication: Injury or trauma; Fall; Blunt trauma (contusions or hematomas) TECHNIQUE: Imaging protocol: Computed tomography of the head without contrast. Radiation optimization: All CT scans at this facility use at least one of these dose optimization techniques: automated exposure control; mA and/or kV adjustment per patient size (includes targeted exams where dose is matched to clinical indication); or iterative reconstruction. COMPARISON: CT head wo con* [id number] 01/29/2022 6:50 AM RADIATION DOSE METRICS: Total DLP (mGy-cm): 964.28 FINDINGS: Brain: No hemorrhage. No edema. Moderate diffuse cerebral atrophy and mild sequela of chronic small vessel ischemic disease. 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 No mass effect. Cerebral ventricles: No ventriculomegaly. Paranasal sinuses: Visualized sinuses are unremarkable. No fluid levels. Mastoid air cells: Visualized mastoid air cells are well aerated. Bones/joints: Unremarkable. No acute fracture. Soft tissues: Unremarkable. CT/CT head wo con* [id number] IMPRESSION: No acute intracranial abnormality.
--- NOTE | 2022-09-06 14:53 | CTR_ITS ---
PROCEDURE INFORMATION: Exam: CT Lumbar Spine Without Contrast Exam date and time: 09/06/2022 3:30 PM Age: 72 years old Clinical indication: Injury or trauma; Fall; Blunt trauma (contusions or hematomas) TECHNIQUE: Imaging protocol: Computed tomography of the lumbar spine without contrast. Radiation optimization: All CT scans at this facility use at least one of these dose optimization techniques: automated exposure control; mA and/or kV adjustment per patient size (includes targeted exams where dose is matched to clinical indication); or iterative reconstruction. COMPARISON: CT lumbar spine wo con* [id number] 01/29/2022 6:56 AM RADIATION DOSE METRICS: Total DLP (mGy-cm): 578.1 FINDINGS: Bones/joints: No acute fracture. Normal alignment. No significant disc protrusion. L4-L5 shows broad-based bulge of the annulus with effacement of the anterior aspect of the thecal sac and bilateral foraminal stenosis. Thickening of the ligamentum flavum is seen with mild central canal stenosis. Soft tissues: Calcified abdominal aorta without aneurysm. CT/CT lumbar spine wo con* [id number] IMPRESSION: 1. No acute bony abnormality. 2. There is mild central canal stenosis L4-L5
--- NOTE | 2022-09-06 14:55 | ECG_ITS ---
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 Measurements Intervals [place] Rate: 84 P: 76 NV: 141 QRS: 71 QRSD: 91 T: 61 QT: 370 QTc: 440 Interpretive Statements SINUS RHYTHM MINIMAL ST DEPRESSION [0.025+ mV ST DEPRESSION] Compared to ECG 03/02/2017 11:49:04 ST (T wave) deviation now present Electronically Signed On 09-07-2022 11:10:24 COAL SAMPLER by Tanner Turner M.D. [email or web address]
--- NOTE | 2022-09-06 14:57 | ED_ITS ---
HPI - Fall General: Chief Complaint: Fall Stated Complaint: Fell and not knees, back, hurt all over Time Seen by Provider: 09/06/22 14:36 Source: patient Mode of arrival: ambulatory Limitations: no limitations History of Present Illness: 72-year-old female states that she has been having increasing weakness along with multiple falls. States anytime she stands up she feels like she may pass out and has had syncopal events she had a fall on Saturday and has right knee pain along with low back pain from that fall. She does have a history of COPD she does not use oxygen at home she is hypoxic here requiring 2 to 3 L her original pulse ox was in the low 80s. She denies any chest pain she does states she feels short of breath denies any cough or fever. Associated symptoms-after fall: Denies abdominal pain or headache(s) Review of Systems Const: Denies: fever(s), chills, body aches or change in appetite Eyes: Denies: blurry vision or eye discomfort ENMT: Denies: throat pain or dental pain Card: Reports: syncope Resp: Reports: dyspnea GI: Denies: abdominal pain, nausea, vomiting or diarrhea : Denies: dysuria Musc: Reports: back pain and extremity pain Skin/Breast: Denies: rash Neuro: Denies: headache(s) Psych: Denies: depression Armando/Lymph: Denies: easy bruising All/Imm: Denies: urticaria PFSH ED PFSH: Medical History COPD with acute bronchitis Hyperlipidemia Hypertension Social History Smoking and tobacco status: former smoker Physical Exam Const: COMMON NORMALS: patient oriented x3 GENERAL APPEARANCE: ill appearing HENMT: COMMON NORMALS: normocephalic and atraumatic HEAD & SCALP: normocephalic and atraumatic Eye: COMMON NORMALS: Equal, round and reactive pupils present and EOMs intact bilaterally PUPIL: Yes Equal, round and reactive pupils present Neck/C-Spine: COMMON NORMALS: full ROM and supple Chest: COMMONS NORMALS: normal inspection of the chest and normal palpation of entire chest wall Resp: COMMON NORMALS: normal respiratory effort, No retractions, No use of accessory muscles and clear to auscultation bilaterally AUSCULTATION: clear to auscultation bilaterally Cardio: COMMON NORMALS: regular rate, regular rhythm and No murmurs present (Cardio) RATE: regular rate RHYTHM: regular rhythm GI: COMMON NORMALS: Normal to inspection, nondistended, normoactive bowel sounds present, Soft to palpation, non-tender and no masses PALPATION: Yes Soft to palpation Extremity: COMMON NORMALS: normal to inspection and full ROM Neuro: COMMON NORMALS: patient oriented x3, moves all extremities and no focal motor deficits Psych: COMMON NORMALS: mental status grossly normal, Normal thought process present and cooperative THOUGHT PROCESS: Normal thought process present Skin: COMMON NORMALS: no rashes or lesions noted and no wounds GENERAL SKIN EXAM: no rashes or lesions noted Course Vital Signs: Vital signs: Vital Signs Temperature 98.0 F 09/06/22 16:04 Pulse Rate 91 09/06/22 16:04 Respiratory Rate 22 H 09/06/22 16:04 Blood Pressure 114/70 09/06/22 16:04 Pulse Oximetry 98 09/06/22 16:05 Oxygen Delivery Me thod 09/06/22 16:05 Oxygen Flow Rate 2 09/06/22 16:05 MDM - Fall Medical Decision Making Patient presents here with syncopal event along with frequent falls she is hypoxic here she is no signs of pneumonia did attempt to turn her oxygen off again and she desatted to 82%. Likely has some chronic hypoxia due to her COPD she is some generalized weakness will admit for observation. Lab Data 09/06/22 15:50 09/06/22 15:50 Radiology Impressions Chest X-Ray 09/06/22 14:50 IMPRESSION: No acute findings. Knee X-Ray 09/06/22 14:50 IMPRESSION: No acute findings. Head CT 09/06/22 14:53 IMPRESSION: No acute intracranial abnormality. Lumbar Spine CT 09/06/22 14:53 IMPRESSION: 1. No acute bony abnormality. 2. There is mild central canal stenosis L4-L5 Laboratory Results WBC 15.9 10^3/uL (4.0-10.0) H 09/06/22 15:50 RBC 4.26 10^6/uL (4.1-5.3) 09/06/22 15:50 Hgb 13.0 g/dL (11.5-15.3) 09/06/22 15:50 Hct 40.2 % (37.0-47.0) 09/06/22 15:50 MCV 94.4 fl (81-99) 09/06/22 15:50 MCH 30.5 pg (28.0-34.0) 09/06/22 15:50 MCHC 32.3 g/dL (30.0-36.0) 09/06/22 15:50 RDW 12.9 % (12.1-15.1) 09/06/22 15:50 Plt Count 347 10^3/cmm (130-400) 09/06/22 15:50 MPV 9.3 fL (7.4-10.4) 09/06/22 15:50 Neut % (Auto) 74.6 % 09/06/22 15:50 Lymph % (Auto) 12.1 % 09/06/22 15:50 [place] % (Auto) 8.6 % 09/06/22 15:50 Eos % (Auto) 0.3 % 09/06/22 15:50 Baso % (Auto) 0.7 % 09/06/22 15:50 Neut # (Auto) 11.84 10^3/uL (1.8-7.7) H 09/06/22 15:50 Lymph # (Auto) 1.9 10^3/uL (0.8-4.8) 09/06/22 15:50 [place] # (Auto) 1.4 10^3/uL (0.2-0.9) H 09/06/22 15:50 Eos # (Auto) 0.0 10^3/uL (0.0-0.8) 09/06/22 15:50 Baso # (Auto) 0.1 10^3/uL (0.0-0.1) 09/06/22 15:50 Nucleated RBC % (auto) 0 % 09/06/22 15:50 Nucleated RBCs # 0.0 /100WBC 09/06/22 15:50 Specimen Type Arterial 09/06/22 15:49 Sample Site Radial, left 09/06/22 15:49 ABG pH 7.39 (7.35-7.45) 09/06/22 15:49 ABG pCO2 43.4 mmHg (35-45) 09/06/22 15:49 ABG pO2 87.8 mmHg (80.0-100.0) 09/06/22 15:49 ABG HCO3 26.4 mmol/L (22-26) H 09/06/22 15:49 ABG Base Excess 1.1 mmol/L (-2.0-2.0) 09/06/22 15:49 Juan Carlos Test Pos 09/06/22 15:49 Hematocrit 36.3 % (37-47) L 09/06/22 15:49 O2 Delivery Device Nc 09/06/22 15:49 FiO2 28.0 % 09/06/22 15:49 Paper Tube Cutter ID Cak 09/06/22 15:49 Sodium 134 mmol/L (136-145) L 09/06/22 15:50 Potassium 3.9 mmol/L (3.5-5.1) 09/06/22 15:50 Chloride 93 mmol/L (98-107) L 09/06/22 15:50 Carbon Dioxide 26 mmol/L (22-29) 09/06/22 15:50 Anion Gap 18.9 (5-19) 09/06/22 15:50 BUN 55 mg/dL (8-23) H 09/06/22 15:50 Creatinine 1.2 mg/dL (0.5-0.9) H 09/06/22 15:50 GFR Calculation Not Reportable 09/06/22 15:50 Glucose 107 mg/dL (65-115) 09/06/22 15:50 Calculated Osmolality 294 mOsm/kg (285-295) 09/06/22 15:50 Calcium 10.2 mg/dL (8.5-10.5) 09/06/22 15:50 Total Bilirubin 0.4 mg/dL (0.15-1.2) 09/06/22 15:50 AST 27 U/L (0-32) 09/06/22 15:50 ALT 18 U/L (0-33) 09/06/22 15:50 Alkaline Phosphatase 136 U/L (35-105) H 09/06/22 15:50 Troponin T Baseline 24 ng/L (0-10) H 09/06/22 15:50 NT-Pro-B Natriuret Pep 1803 pg/mL (0-125) H 09/06/22 15:50 Total Protein 7.4 g/dL (6.6-8.7) 09/06/22 15:50 Albumin 3.6 g/dL (3.5-5.2) 09/06/22 15:50 Globulin 3.8 g/dL (1.3-4.6) 09/06/22 15:50 Urine Color Yellow (Yellow) 09/06/22 16:25 Urine Appearance Clear (CLEAR) 09/06/22 16:25 Urine pH 5 (5-7) 09/06/22 16:25 Ur Specific [place] 1.020 (1.005-1.030) 09/06/22 16:25 Urine Protein Neg (Negative) 09/06/22 16:25 Urine Glucose (UA) Norm (Normal) 09/06/22 16:25 Urine Ketones 1+ (Negative) H 09/06/22 16:25 Urine Blood Neg (Negative) 09/06/22 16:25 Urine Nitrate Negative (Negative) 09/06/22 16:25 Urine Bilirubin Neg (Negative) 09/06/22 16:25 Urine Urobilinogen Neg mg/dL (Negative) 09/06/22 16:25 Ur Leukocyte Esterase Negative (Negative) 09/06/22 16:25 Valproic Acid 2.8 ug/mL (50-100) L 09/06/22 15:50 Influenza Type A Ag negative (Negative) 09/06/22 16:00 Influenza Type B Ag negative (Negative) 09/06/22 16:00 EKG Data EKG 1: I personally reviewed and interpreted this EKG as follows: EKG interpretation date: 09/06/22 EKG interpretation time: 15:05 Interpretation: nsr hr [address] or t wave abnormalities qrs 91 qtc 411 Discharge Plan Discharge Patient Disposition: Placed in Observation Clinical Impression: Hypoxia, Falls frequently, Syncope Coding Level of Care Code ED Outpatient Physical Therapist for Chg Fwd Exam Comprehensive
[2022-09-06 16:01] LABS: ABG PCO2 43.4 mmHg (35-45); ABG PH Result 7.39 (7.35-7.45); Arterial Blood Gas Hematocrit 36.3 % (37-47); Base Excess ABG 1.1 mmol/L (-2.0-2.0); Blood Gas Allen Test Pos; Blood Gas Operator Identificat CAK; Blood Gas Sample Site Radial, left; Blood Gas Sample Type Arterial; HCO3 ABG 26.4 mmol/L (22-26); Oxygen Device NC; PO2 ABG 87.8 mmHg (80.0-100.0)
[2022-09-06 16:03] LABS: Basophils # 0.1 10^3/uL (0.0-0.1); Basophils % 0.7 %; Eosinophils % 0.3 %; Hematocrit 40.2 % (37.0-47.0); Lymphocytes # 1.9 10^3/uL (0.8-4.8); Lymphocytes % 12.1 %; Mean Corpuscular HGB Conc 32.3 g/dL (30.0-36.0); Mean Corpuscular Hemoglobin 30.5 pg (28.0-34.0); Mean Corpuscular Volume 94.4 fl (81-99); Mean Platelet Volume 9.3 fL (7.4-10.4); Monocytes # 1.4 10^3/uL (0.2-0.9); Monocytes % 8.6 %; Neutrophils # 11.84 10^3/uL (1.8-7.7); Neutrophils % 74.6 %; Nucleated Red Blood Cells % 0 %; Platelet Count 347 10^3/cmm (130-400); Red Blood Count 4.26 10^6/uL (4.1-5.3); Red Cell Distribution Width 12.9 % (12.1-15.1); White Blood Count 15.9 10^3/uL (4.0-10.0)
[2022-09-06 16:21] LABS: Alanine Aminotransferase 18 U/L (0-33); Albumin Level 3.6 g/dL (3.5-5.2); Alkaline Phosphatase 136 U/L (35-105); Anion Gap 18.9 (5-19); Aspartate Amino Transferase 27 U/L (0-32); Blood Urea Nitrogen 55 mg/dL (8-23); Calcium 10.2 mg/dL (8.5-10.5); Carbon Dioxide 26 mmol/L (22-29); Chloride 93 mmol/L (98-107); Globulin 3.8 g/dL (1.3-4.6); Glucose 107 mg/dL (65-115); Osmolality Calculated 294 mOsm/kg (285-295); Potassium 3.9 mmol/L (3.5-5.1); Sodium 134 mmol/L (136-145); Total Bilirubin 0.4 mg/dL (0.15-1.2); Total Protein 7.4 g/dL (6.6-8.7)
[2022-09-06 16:22] LABS: Valproic Acid Level 2.8 ug/mL (50-100)
[2022-09-06 16:30] LABS: Influenza A by IFA negative (Negative); Influenza B by IFA negative (Negative)
[2022-09-06 16:43] LABS: Troponin(5th) Baseline 24 ng/L (0-10)
[2022-09-06 16:47] LABS: Add Urine Microscopic? NO; Charge for UA Resulting for Rev
[2022-09-06 16:52] LABS: NT Pro B Type Natriuretic Pept 1803 pg/mL (0-125)
[2022-09-06 16:58] LABS: Bilirubin Urine Neg (Negative); Blood Urine Neg (Negative); Glucose Urine UA Norm (Normal); Ketones Urine 1+ (Negative); Leukocyte Esterase Urine Negative (Negative); Nitrate Urine Negative (Negative); Protein Urine Neg (Negative); Urine Appearance Clear (CLEAR); Urine Color Yellow (Yellow); Urobilinogen Urine Neg (Negative); pH Urine 5 (5-7)
--- NOTE | 2022-09-06 16:59 | PC.PHAR ---
PT STATES SHE TAKES CARE OF HER OWN MEDICATIONS-PT STATES SHE TOOK MEDS TODAY BUT IS UNSURE WHICH ONES SHE TOOK-PT STATES SHE NO LONGER TAKES DIVALPROEX ER 500MG BID EXT MED HISTORY SHOWS LAST FILLED 02/12/22 30D/S-CELEXA 40MG DAILY EXT MED HISTORY SHOWS LAST FILLED 04/02/22 30D/S-PTS PHARMACY IS CLOSED TODAY TO VERIFY WHAT MEDICATIONS AND LAST FILL DATES
--- NOTE | 2022-09-06 17:07 | ECG_ITS ---
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 Measurements Intervals [place] Rate: 91 P: 107 VT: 144 QRS: 67 QRSD: 88 T: 100 QT: 358 QTc: 442 Interpretive Statements SINUS RHYTHM Compared to ECG 09/06/2022 15:05:37 ST (T wave) deviation no longer present Electronically Signed On 09-07-2022 11:11:56 COUNTY EXTENSION AGENT by Tanner Turner M.D. [id number]
[2022-09-06] MEDS: ipratropium-albuterol 3 mL Neb INHALATION (17:27)
--- NOTE | 2022-09-06 17:35 | USCV_ITS ---
Transthoracic Echo Fany Moctezuma Age: 72 Gender: F : 1950 Exam Date: 09/06/2022 18:34 Ordering Phys: Derrick Trujillo MD Technologist: RASHAAD [place]am [place] [facility] [place] Indication: chronic syncopal episodes for the last few years. No history of cardiac intervention per patient BP: 114 / 70 HR: 92 Rhythm: Sinus Technical Quality: Adequate MEASUREMENTS (Male / Female) Normal Values 2D ECHO LV Diastolic Diameter PLAX 3.3 cm 4.2 - 5.9 / 3.9 - 5.3 cm LV Systolic Diameter PLAX 1.9 cm IVS Diastolic Thickness 1.1 cm 0.6 - 1.0 / 0.6 - 0.9 cm IVS Systolic Thickness 1.4 cm LVPW Diastolic Thickness 0.9 cm 0.6 - 1.0 / 0.6 - 0.9 cm LVPW Systolic Thickness 1.5 cm LVOT Diameter 1.8 cm LV Ejection Fraction 2D Teich 73.4 % LV Ejection Fraction MOD 2C 72.9 % LV Ejection Fraction 2C AL 74.7 % LA Diameter 2.4 cm LA Width 2.6 cm LA Height 4.2 cm RA Width 3.5 cm RA Height 3.9 cm Aorta at Sinotubular Diameter 2.7 cm IVC Diameter 1.1 cm M-MODE Aortic Annulus Diameter 3.1 cm LA Ao Ratio MM 0.8 MV E Point Septal Separation 0.6 cm DOPPLER AV Peak Velocity 153.0 cm/s LVOT Peak Velocity 94.0 cm/s AV Area Cont Eq vti 1.5 cm squared AV Area Cont Eq pk 1.5 cm squared MV Peak Velocity 124.0 cm/s MV Area PHT 3.3 cm squared Mitral E to A Ratio 0.8 MV E' Velocity 51.0 cm/s Mitral E to MV E' Ratio 11.4 Mitral E to LV E' Lateral Ratio 12.2 Mitral E to LV E' Septal Ratio 10.8 TR Peak Velocity 251.0 cm/s TR Peak Gradient 25.2 mmHg TV Peak E Velocity 52.0 cm/s Right Atrial Pressure 5.0 mmHg Pulmonary Artery Systolic Pressu 30.2 mmHg PV Peak Velocity 103.0 cm/s RV Acceleration Time 0.1 s RV Ejection Time 0.3 s RV AcT/ET 0.4 FINDINGS Left Ventricle Left ventricle is normal in size. LV systolic function is normal with EF of 60-65%. No regional wall motion abnormalities are seen. Grade 1 diastolic dysfunction Right Ventricle RV is normal in size and function. Right Atrium Normal in size Left Atrium Normal in size Mitral Valve Mild mitral annular calcification. Trace mitral regurgitation. Aortic Valve Aortic valve is thickened. No significant stenosis or regurgitation. Tricuspid Valve Trace tricuspid regurgitation. Insufficient TR jet to calculate RVSP Pulmonic Valve Not well visualized. Pericardium Normal Aorta Normal in size IVC IVC appears to be normal CONCLUSIONS LV systolic function is normal with EF of 60-65% Grade 1 diastolic dysfunction Mild mitral annular calcification. Trace mitral regurgitation Trace tricuspid regurgitation No comparison studies are available Tanner Turner MD (Electronically Signed) Final Date: 07 September 2022 10:10 S
--- NOTE | 2022-09-06 17:36 | P.HP_ITS ---
Providers/Chief Complaint Primary Care Provider: Sushant Ogden DO Chief Complaint: Fell and not knees, back, hurt all over History of Present Illness 72-year-old lady somewhat hard of hearing, currently not having her hearing aid, accompanied by family in ER presenting due to episodes of blacking out when she stands up, multiple falls, with history of COPD, smoking, HTN, HLD. In ER she is noted to be hypoxic on presentation. She has not normally worn oxygen until now, in ER requiring 2 L nasal cannula to maintain saturation in 90s. On presentation saturation 85% at rest. She otherwise denies feeling any more short of breath at rest than usual, denies having any more cough, is not producing any phlegm, not coughing up any blood. Has not had any chest pain or pressure. Has not had any lower extremity edema. Does get short of breath laying flat. In ER chest x-ray is without acute findings. Additionally imaging with CT head which is unremarkable, CT lumbar spine without acute abnormality with mild central consuls and L4-L5, right knee x-ray without acute findings. She is not tachycardic. ABG 7.39/43.4/87.8. Afebrile. Leukocytosis 15.9. Mostly neutrophilic. Sodium 134, chloride 93. BUN 55, creatinine 1.2. Alk phos 136. Baseline troponin 24. NT proBNP 1803. EKG with sinus rhythm. UA unremarkable, 1+ ketones. Rapid influenza negative. On additional questioning she reports she has had issues with getting lightheaded when standing up for a while for which she is also followed up with her primary provider. Review of Systems Const: Denies: fever(s), chills, body aches or malaise Eyes: Denies: change in vision, eye discomfort or eye redness ENMT: Denies: throat pain, oral sores or ear or mastoid pain Card: Reports: lightheadedness (Extending up), syncope and pre-syncope; Denies: chest pain, edema, swelling of feet/ankles or dyspnea on exertion Resp: Denies: dyspnea, productive cough, change in phlegm color or hemoptysis GI: Denies: abdominal pain, nausea, vomiting, diarrhea, constipation, hematochezia or melena : Denies: flank pain, urinary frequency or hematuria Musc: Denies: back pain, joint swelling or joint redness Skin/Breast: Denies: rash or new lesions Neuro: Denies: headache(s), numbness in extremities, weakness in extremities, dizziness, confusion or seizure-like activity Endo: Denies: polyuria or polydipsia Armando/Lymph: Denies: easy bleeding or tender lymph nodes All/Imm: Denies: urticaria or tongue swelling Medications/Allergies Home Medications Medication Instructions Recorded Confirmed Last Taken Type albuterol sulfate 90 mcg/actuation 2 puff inhalation Q4H PRN 07/07/20 09/06/22 07/06/20 History aerosol inhaler (Ventolin HFA) Shortness Of Breath aspirin 81 mg tablet,delayed 81 mg PO DAILY 07/07/20 09/06/22 07/07/20 History release (Ami Low Dose Aspirin) atorvastatin 20 mg tablet 20 mg PO BEDTIME 07/07/20 09/06/22 07/07/20 History budesonide-formoterol HFA 160 2 puff inhalation BID 07/07/20 09/06/22 07/07/20 History mcg-4.5 mcg/actuation aerosol inhaler (Symbicort) duloxetine 60 mg capsule,delayed 120 mg PO QAM 07/07/20 09/06/22 07/07/20 History release hydrocodone 5 mg-acetaminophen 325 1 tab PO BID PRN Pain 07/07/20 09/06/22 07/06/20 History mg tablet lisinopril 20 mg tablet 20 mg PO DAILY 07/07/20 09/06/22 07/07/20 History krkmmyzk-gko-cjes-FA-Ca carb-vit K 1 tab PO DAILY 07/07/20 09/06/22 07/07/20 History 18 mg iron-400 mcg-500 mg tablet (One-A-Day Womens Formula) ascorbic acid (vitamin C) 500 mg 500 mg PO BEDTIME 01/29/22 09/06/22 Unknown History tablet (Vitamin C) alprazolam 1 mg tablet 1 mg PO TID PRN Anxiety 09/06/22 09/06/22 Unknown History quetiapine 100 mg tablet 100 mg PO BEDTIME 09/06/22 09/06/22 Unknown History quetiapine 25 mg tablet 25 mg PO QAM 09/06/22 09/06/22 Unknown History Allergies Allergy/AdvReac Type Severity Reaction Status Date / Time codeine Allergy Unknown Verified 01/29/22 08:57 Penicillins Allergy Unknown Verified 01/29/22 08:57 PFSH Acute PFSH: Medical History COPD with acute bronchitis Hyperlipidemia Hypertension Smoking addiction Surgical History H/O: hysterectomy Hx of cholecystectomy Family History Other Raynaud's disease Social History (Updated 09/06/22 @ 17:40 by Derrick Trujillo MD) Smoking and tobacco status: former smoker Alcohol intake: never Substance/Drug Use: never Lives independently: Yes Household members: none Additional social history: Daughter is her DPOA Vitals/I&O/Wt Last Vital Signs Temp 98.0 F 09/06/22 16:04 Pulse 85 09/06/22 17:30 Resp 16 09/06/22 17:28 BP 114/70 09/06/22 16:04 Pulse Ox 95 09/06/22 17:28 O2 Del Method 09/06/22 17:28 O2 Flow Rate 2 09/06/22 17:28 Weight last 48 hrs Weight 58.967 kg Physical Exam Const: COMMON NORMALS: patient oriented x3 and alert GENERAL APPEARANCE: cooperative ORIENTATION/CONSCIOUSNESS: Yes awake HENMT: COMMON NORMALS: oropharynx normal OTHER: Dry MM Neck/C-Spine: COMMON NORMALS: no JVD Resp: COMMON NORMALS: normal respiratory effort and clear to auscultation bilaterally AUSCULTATION: diminished lung sounds (Very diminished but no abnormal sounds) OTHER: Pursed lip breathing Cardio: COMMON NORMALS: no JVD, regular rhythm, S1 normal heart sound present, S2 normal heart sound present and No murmurs present (Cardio) RHYTHM: regular rhythm HEART SOUNDS: S1 normal heart sound present and S2 normal heart sound present GI: COMMON NORMALS: Normal to inspection, nondistended, normoactive bowel sounds present, Soft to palpation and non-tender PALPATION: Yes Soft to palpation Extremity: COMMON NORMALS: no joint enlargement and no pedal edema Neuro: COMMON NORMALS: patient oriented x3 and moves all extremities SENSORIUM/ORIENTATION: Yes alert Skin: COMMON NORMALS: no rashes or lesions noted GENERAL SKIN EXAM: no rashes or lesions noted OTHER: Decreased turgor Data 09/06/22 15:50 09/06/22 15:50 A&P Assessment and plan (1) Syncope: Multiple episodes of blacking out , appears may be having syncopal episodes, etiology not entirely clear, but does report longstanding issues with getting lightheaded with standing up, and additionally is noted to be hypoxic in ER, likely combination of orthostasis and hypoxia. Started on oxygen support. No pneumonia noted on chest x-ray. Hypoxia likely secondary to progression of COPD with continued smoking. She denies symptoms that may indicate exacerbation including cough, no phlegm production. Denies any worse dyspnea at rest. With syncopal episodes, hypoxia, discussed with her consideration of PE, although she otherwise does not have symptoms with Wells score for PE low. Discussed consideration of additional assessment, although given she appears to have CKD may be at increased risk of MATTHEW. Discussed consideration of VQ scan tomorrow, discussed consideration of empiric anticoagulation until PE may be ruled out, however, with multiple recent falls, also he is at risk of bleeding. She for now elects to only have prophylactic anticoagulant, not full dose anticoagulation, with VQ scan tomorrow. D-dimer may be unreliable due to falls and CKD. Assess orthostatics. Assess TTE. Complete troponin EKG series. (2) Hypoxia: Suspected progression of COPD. Does not appear to have other symptoms of exacerbation. Received breathing treatment in ER. We will continue with duo nebs, continue Symbicort. Needs to quit smoking. Additional evaluation although lower likelihood of PE. Leukocytosis noted, but again no indication of pneumonia. UA not suggestive of UTI. She denies other symptoms that may suggest infection. May be stress related secondary to syncopal events, falls. (3) Falls frequently: Fall precautions. Up with assist. Additional assessment as above. PT evaluation. (4) CKD (chronic kidney disease): She is not aware of having CKD. Avoid nephrotoxins. Reassess renal function. Follow-up with PCP. (5) Troponin level elevated: Mild ovation of troponin. She denies any chest pain or pressure. No suggestion of AMI on EKG. Complete troponin EKG series. Assess TTE. With coronary artery disease risk factors will benefit from additional risk stratification with stress testing. (6) Smoking addiction: Discussed smoking cessation with her for 3 and half minutes. She understands that continued smoking may lead to progression of lung disease. Discussed also risk of cardiovascular disease, including [place] and stroke, as well as cancer and other complications. She is considering quitting. Continue to encourage cessation. Nicotine replacement. (7) COPD (chronic obstructive pulmonary disease): Appears may be having progression of COPD. Newly requiring oxygen. DuoNeb breathing treatments. Continue Symbicort. Oxygen support. Will need oxygen at discharge. Consider nebulizer for home use. Consider follow-up with pulmonology. Plan NT proBNP elevation: No peripheral edema, does not appear fluid overloaded, in fact appears dehydrated with dry MM, loss of skin turgor. Assess TTE. Suspect this is secondary to lung disease. Dehydration: Dry IM. Loss of skin turgor. Orthostatic symptoms. Denies any vomiting or diarrhea. Gentle IV hydration with LR. HTN HLD Attestations Medical Necessity Statement*: Place in observation for additional assessment of syncopal episodes, new oxygen requirement with above comorbid conditions. Coding Level of Care Code Acute Sustainable Systems Analyst for g Fwd Diagnoses Syncope R55 Hypoxia R09.02 Falls frequently R29.6 CKD (chronic kidney disease) N18.9 Troponin level elevated R77.8 Smoking addiction F17.200 COPD (chronic obstructive pulmonary disease) J44.9
[2022-09-06 18:22] LABS: Troponin 5 2HR 20.04 ng/L (0-10)
[2022-09-06 18:23] LABS: Troponin 5 2HR Delta -3.96 ABS# (0-10)
[2022-09-06] MEDS: quetiapine 100 mg Tablet PO (22:32)
[2022-09-06] MEDS: lactated ringers 1,000 ML 30 ML IV (22:32)
[2022-09-06] MEDS: heparin 5,000 unit/mL INJ 1 mL 5000 UNIT SUBCUT (22:39)
--- NOTE | 2022-09-06 23:56 | PC.NURSE ---
patient has bruising to arabella arms/superficial abrasion to right upper ext d/t recent falls, denies pain.
[2022-09-07] VITALS (13 sets, daily range): BP systolic 100–126; BP diastolic 62–79; PULSE 72–105; RESP 16–24; TEMP 36.3–37.2; O2SAT 86–97
[2022-09-07] MEDS: duloxetine 60 mg Capsule 120 MG PO (05:04)
[2022-09-07] MEDS: quetiapine 25 mg Tablet PO (05:04)
[2022-09-07 05:28] LABS: Basophils # 0.1 10^3/uL (0.0-0.1); Basophils % 0.6 %; Eosinophils # 0.1 10^3/uL (0.0-0.8); Eosinophils % 0.4 %; Hemoglobin 12.4 g/dL (11.5-15.3); Lymphocytes # 1.5 10^3/uL (0.8-4.8); Lymphocytes % 11.2 %; Mean Corpuscular HGB Conc 31.8 g/dL (30.0-36.0); Mean Corpuscular Hemoglobin 30.6 pg (28.0-34.0); Mean Corpuscular Volume 96.3 fl (81-99); Mean Platelet Volume 9.1 fL (7.4-10.4); Monocytes # 1.1 10^3/uL (0.2-0.9); Monocytes % 8.6 %; Neutrophils # 9.74 10^3/uL (1.8-7.7); Nucleated Red Blood Cells % 0 %; Platelet Count 269 10^3/cmm (130-400); Red Blood Count 4.05 10^6/uL (4.1-5.3); Red Cell Distribution Width 12.9 % (12.1-15.1)
--- NOTE | 2022-09-07 06:14 | PC.NURSE ---
patient symptomatic as well as changes in blood pressure and heart rate with orthostatics. patient states she just gets really weak when up at all, unable to obtain standing blood pressure, patient unable to stand long enough for reading. patient denies pain, becomes sob with any exertion. refused telemetry, states she can not sleep with that box on her.
[2022-09-07] MEDS: ipratropium-albuterol 3 mL Neb INHALATION ×4 (07:49→19:51)
[2022-09-07] MEDS: budesonide 0.5 mg/2 mL Neb INHALATION ×2 (07:49→19:50)
--- NOTE | 2022-09-07 08:00 | NMR_ITS ---
PROCEDURE INFORMATION: Exam: LA Lung Ventilation and Perfusion Imaging Exam date and time: 09/07/2022 8:00 AM Age: 72 years old Clinical indication: Shortness of breath; Patient HX: Copd, SOB, lt side chest pain; Additional info: Assess for pe TECHNIQUE: Imaging protocol: Nuclear pulmonary ventilation with aerosol or gas was performed followed by perfusion. Views: Ventilation acquired with multiple projections. Perfusion acquired with multiple projections. Radiopharmaceutical: 5.2 mCi Tc-99m MAA (Macroaggregated Albumin), IV. 32 mCi Tc-99m DTPA (DTPA Aerosol), Inhalation. COMPARISON: CR (CHEST, ) 09/06/2022 4:27 PM FINDINGS: Ventilation: Homogeneous uptake is seen throughout the right and left lung. There are no segmental or subsegmental ventilation defects. Perfusion: There is uptake of the agent throughout both lungs. Exam is negative for segmental or subsegmental perfusion defects. This finding corresponds to a low probability for pulmonary embolism. LA/LA pul vent and perfus* [id number] IMPRESSION: 1. Normal perfusion. No evidence of pulmonary embolism. 2. No ventilation perfusion mismatch
[2022-09-07] MEDS: lisinopril 20 mg Tablet PO (08:19)
[2022-09-07] MEDS: aspirin 81 mg EC Tablet PO (08:19)
[2022-09-07 09:37] LABS: Alanine Aminotransferase 15 U/L (0-33); Alkaline Phosphatase 121 U/L (35-105); Anion Gap 18.6 (5-19); Aspartate Amino Transferase 26 U/L (0-32); Blood Urea Nitrogen 44 mg/dL (8-23); Calcium 9.5 mg/dL (8.5-10.5); Carbon Dioxide 24 mmol/L (22-29); Chloride 98 mmol/L (98-107); Globulin 3.8 g/dL (1.3-4.6); Glucose 119 mg/dL (65-115); Osmolality Calculated 296 mOsm/kg (285-295); Potassium 3.6 mmol/L (3.5-5.1); Sodium 137 mmol/L (136-145); Total Bilirubin 0.4 mg/dL (0.15-1.2); Total Protein 6.8 g/dL (6.6-8.7)
--- NOTE | 2022-09-07 09:47 | PC.CHAP ---
Pastoral Care Encounter/Spiritual Assessment Type of Contact [] Declined station worker visit [] Patient/Family/Request visit [] Outpatient visit [] Follow-up visit [] Physician referral [] Code/Alert [x] Routine visit [] Staff referral [] Actively dying [] Patient sleeping [] Family support [] [] Out of room [] Palliative care [] [x] Receiving care in room [] Pre-surgical visit [] Trauma [] Long length of stay [] ICU visit [] Other: Relational/Emotional Strength [] Patient feels connected with others/family/visitors/staff [] Distress [] Loneliness/isolation [] Abandonment Spirituality of Patient [x] Person of Carina [] Attends Temple of their Carina [x] Believes in Prayer [] Reads Bible or Mormonism materials [] There are Spiritual issues to be addressed Technology Instructor Interventions [x] Prayer [] Active listening [] Non-anxious presence [] Spiritual/emotional support [] Crisis/trauma care [] Spiritual counseling [] Bereavement support [] Provided bereavement packet [] Provided Bible/devotional materials [] Provided toy/stuffed animal, coloring book to patient or family member [] Provided Communion [] Anointing/[place] [] Salvation [x] Completed spiritual assessment [] Other: Impact on Illness or Injury [] Angry [] Fearful [] Anxious [] Often cries [] Exhaustion [] Unable to work [] Unable to attend jainism [] Unable to walk/stand [] Unable to read [] Unable to drive [] Unable to eat/drink [] Unable to sleep [] Unable to be with family [] Patient intubated [] Other: Summary Time spent with patient 10 min
[2022-09-07 10:14] LABS: Thyroid Stimulating Hormone 0.41 uIU/mL (0.27-4.20)
[2022-09-07] MEDS: heparin 5,000 unit/mL INJ 1 mL 5000 UNIT SUBCUT ×2 (11:35→21:27)
--- NOTE | 2022-09-07 16:04 | PM.PN ---
Subjective Subjective: This morning she had difficult time performing orthostatic vital signs, with orthostatic symptoms on getting up. Could only sit up. With sitting blood pressure decreased by about 9 points. Denies chest pain or pressure. Did require oxygen to be increased up to 5 L nasal cannula. She told me she was not coughing, but her daughter states she has been coughing. Is not bringing up any phlegm. Vitals/I&O/Wt Last Vital Signs Temp 97.9 F 09/07/22 15:40 Pulse 80 09/07/22 15:48 Resp 20 H 09/07/22 15:48 BP 126/70 09/07/22 15:40 Pulse Ox 94 09/07/22 15:48 O2 Del Method 09/07/22 15:48 O2 Flow Rate 4 09/07/22 15:48 09/07/22 09/07/22 09/07/22 06:59 14:59 22:59 Intake Total 125 / 125 120 / 120 Output Total 100 / 100 Balance 120 / 120 Weight last 48 hrs Weight 60.345 kg Weight 58.967 kg Physical Exam Const: COMMON NORMALS: patient oriented x3 and alert GENERAL APPEARANCE: cooperative ORIENTATION/CONSCIOUSNESS: Yes awake HENMT: COMMON NORMALS: oropharynx normal Neck/C-Spine: COMMON NORMALS: no JVD Resp: COMMON NORMALS: normal respiratory effort AUSCULTATION: diminished lung sounds (Very diminished) OTHER: Pursed lip breathing Cardio: COMMON NORMALS: no JVD, regular rhythm, S1 normal heart sound present, S2 normal heart sound present and No murmurs present (Cardio) RHYTHM: regular rhythm HEART SOUNDS: S1 normal heart sound present and S2 normal heart sound present GI: COMMON NORMALS: Normal to inspection, nondistended, normoactive bowel sounds present, Soft to palpation and non-tender PALPATION: Yes Soft to palpation Extremity: COMMON NORMALS: no joint enlargement and no pedal edema Neuro: COMMON NORMALS: patient oriented x3 and moves all extremities SENSORIUM/ORIENTATION: Yes alert Skin: COMMON NORMALS: no rashes or lesions noted GENERAL SKIN EXAM: no rashes or lesions noted OTHER: Decreased turgor Data 09/07/22 05:10 09/07/22 08:59 A&P Assessment and plan (1) Syncope: Suspected combination of both orthostasis and hypoxia. Orthostatics could not be properly assessed today due to significant orthostatic symptoms. Blood pressure appears to be improving with gentle rehydration. Was awaiting VQ scan today which is now coming back without PE. TTE with grade 1 diastolic dysfunction trace TVR. Normal EF. Continue gentle IV hydration currently and will reassess orthostatics in the morning. Additionally currently requiring up to 5 L nasal cannula oxygen. Unclear whether this is her new baseline with progression of COPD, however, her lung sounds are very diminished currently. And even though she states has not been coughing, her daughter states she in fact has been coughing. I do suspect that she is in exacerbation of COPD and that hopefully hypoxia she would show some improvement. She likely will need long-term oxygen. Currently we will treat sleep exacerbation also with prednisone. No sputum production so far no antibiotic. We will respiratory viral panel. Multiple episodes of blacking out , appears may be having syncopal episodes, etiology not entirely clear, but does report longstanding issues with getting lightheaded with standing up, and additionally is noted to be hypoxic in ER, likely combination of orthostasis and hypoxia. (2) Hypoxia: Suspected progression of COPD. Suspect is infection exacerbation as her daughter says she has been coughing. Denies any sputum production. Without prednisone. Continue breathing treatments. No antibiotics. Anticipate expiration of which showed improved, although will need long-term oxygen after discharge. After discharge consider home nebulizer. Consider follow-up with pulmonology. Needs to quit smoking. Normal VQ scan. Leukocytosis improving with rehydration. No pneumonia. UA not suggestive of UTI. She denies other symptoms that may suggest infection. May be stress related secondary to syncopal events, falls. (3) Falls frequently: As above. Fall precautions. PT (4) CKD (chronic kidney disease): Appears was JAMES, creatinine is improving with gentle fluid challenge. Decreasing down to 1. Reassess renal function. She is not aware of having CKD. Avoid nephrotoxins. Follow-up with PCP. (5) Troponin level elevated: Mild elevation of troponin. She denies any chest pain or pressure. No suggestion of AMI on EKG. TTE unremarkable. Consider outpatient stress testing given CAD risks. (6) Smoking addiction: Continue to encourage cessation. (7) COPD (chronic obstructive pulmonary disease): Appears may be having progression of COPD. Newly requiring oxygen. With exacerbation as above. Will need oxygen at discharge. Consider nebulizer for home use. Consider follow-up with pulmonology. Plan NT proBNP elevation: No peripheral edema, does not appear fluid overloaded, in fact appears dehydrated with dry MM, loss of skin turgor. Unremarkable TTE. Suspect this is secondary to lung disease. Dehydration: Continue gentle IV hydration. Oral intake as tolerated. Reassess orthostatic symptoms/vitals. On presentation dry MM, loss of skin turgor. Denies any vomiting or diarrhea. HTN HLD Attestations Medical Necessity Statement*: Continue hospitalization for additional assessment of ongoing orthostatic symptoms, syncopal episodes, worsening hypoxia, COPD exacerbation. Coding Level of Care Code Acute [employer] for g Fwd Diagnoses Syncope R55 Hypoxia R09.02 Falls frequently R29.6 CKD (chronic kidney disease) N18.9 Troponin level elevated R77.8 Smoking addiction F17.200 COPD (chronic obstructive pulmonary disease) J44.9
[2022-09-07] MEDS: predniSONE 20 mg Tablet 40 MG PO (18:02)
[2022-09-07] MEDS: atorvastatin 40 mg Tablet 20 MG PO (20:45)
[2022-09-07] MEDS: quetiapine 100 mg Tablet PO (20:45)
[2022-09-07 22:45] LABS: Adenovirus Not Detected (NOT DETECT); Chlamydia Pneumoniae Not Detected (NOT DETECT); Coronavirus 229E,HKU1,NL63,OC4 Not Detected (NOT DETECT); Human Metapneumovirus Not Detected (NOT DETECT); Human Rhinovirus/Enterovirus Not Detected (NOT DETECT); Influenza A Not Detected (NOT DETECT); Influenza A H1 Not Detected (NOT DETECT); Influenza A H1-2009 Not Detected (NOT DETECT); Influenza A H3 Not Detected (NOT DETECT); Influenza B Not Detected (NOT DETECT); Mycoplasma Pneumoniae Not Detected (NOT DETECT); Parainfluenza Virus Type 1 Not Detected (NOT DETECT); Parainfluenza Virus Type 2 Not Detected (NOT DETECT); Parainfluenza Virus Type 3 Not Detected (NOT DETECT); Parainfluenza Virus Type 4 Not Detected (NOT DETECT); Respiratory Syncytial Virus A Not Detected (NOT DETECT); Respiratory Syncytial Virus B Not Detected (NOT DETECT); SARS-COV-2 Not Detected (NOT DETECT)
[2022-09-08] VITALS (12 sets, daily range): BP systolic 101–134; BP diastolic 56–84; PULSE 72–90; RESP 18–24; TEMP 36.6–36.7; O2SAT 80–93
--- NOTE | 2022-09-08 04:05 | PC.NURSE ---
Pt pulled out IV in her sleep. Catheter tip intact, pressure drsg applied. No bleeding noted to site. Notified Dr. Haywood of pt refusal to restart IV at this time. Will await orders.
--- NOTE | 2022-09-08 04:55 | PC.NURSE ---
NO received and noted from Dr. Haywood to hold IV fluids until seen by physician in am. Physician also notified of pt refusal to have labs completed this am. No other orders received.
[2022-09-08] MEDS: duloxetine 60 mg Capsule 120 MG PO (05:33)
[2022-09-08] MEDS: quetiapine 25 mg Tablet PO (05:33)
[2022-09-08] MEDS: budesonide 0.5 mg/2 mL Neb INHALATION (08:16)
[2022-09-08] MEDS: ipratropium-albuterol 3 mL Neb INHALATION ×2 (08:17→12:04)
--- NOTE | 2022-09-08 08:24 | PC.RESP ---
PT REFUSES BLOOD DRAW, TOOK MEDICATIONS.
[2022-09-08] MEDS: nicotine 21 mg Patch 1 PATCH TRANSDERMA (10:07)
[2022-09-08] MEDS: predniSONE 20 mg Tablet 40 MG PO (10:10)
[2022-09-08] MEDS: aspirin 81 mg EC Tablet PO (10:10)
[2022-09-08] MEDS: heparin 5,000 unit/mL INJ 1 mL 5000 UNIT SUBCUT (10:10)
[2022-09-08] MEDS: lisinopril 20 mg Tablet PO (10:10)
--- NOTE | 2022-09-08 13:38 | PM.DCS ---
Discharge Providers Date of Admission: 09/06/22 16:56 Date of Discharge: September 08, 2022 Attending Provider at Admission: Derrick Trujillo Attending Provider at Discharge: Bakari Mcfadden MD Primary Care Provider: Sushant Ogden, DO Diagnoses at Discharge Discharge Diagnosis (1) COPD (chronic obstructive pulmonary disease): Status: Acute (2) Syncope: Status: Acute (3) Hypoxia: Status: Acute (4) Falls frequently: Status: Acute (5) CKD (chronic kidney disease): Status: Acute (6) Troponin level elevated: Status: Acute (7) Smoking addiction: Status: Acute Reason for Visit Reason for Visit: Fell and not knees, back, hurt all over Brief History: 72-year-old lady somewhat hard of hearing, currently not having her hearing aid, accompanied by family in ER presenting due to episodes of blacking out when she stands up, multiple falls, with history of COPD, smoking, HTN, HLD.? In ER she is noted to be hypoxic on presentation.? She has not normally worn oxygen until now, in ER requiring 2 L nasal cannula to maintain saturation in 90s.? On presentation saturation 85% at rest.? She otherwise denies feeling any more short of breath at rest than usual, denies having any more cough, is not producing any phlegm, not coughing up any blood.? Has not had any chest pain or pressure.? Has not had any lower extremity edema.? Does get short of breath laying flat.? In ER, chest x-ray is without acute findings.? Additionally imaging with CT head which is unremarkable, CT lumbar spine without acute abnormality with mild central consuls and L4-L5, right knee x-ray without acute findings.? She is not tachycardic.? ABG 7.39/43.4/87.8.? Afebrile.? Leukocytosis 15.9.? Mostly neutrophilic.? Sodium 134, chloride 93.? BUN 55, creatinine 1.2.? Alk phos 136.? Baseline troponin 24.? NT proBNP 1803.? EKG with sinus rhythm. UA unremarkable, 1+ ketones.? Rapid influenza negative. On additional questioning she reports she has had issues with getting lightheaded when standing up for a while for which she is also followed up with her primary provider. Hospital Course Hospital Course Patient was admitted to hospital further evaluation and management. Multiple etiologies for syncope/presyncope were ruled out with a negative CT head, negative orthostatics. Patient was found to be hypoxic on room air both at rest and exertion. Patient at baseline does not follow-up with any avionics systems technician. It is believed patient's symptoms are most likely secondary to ongoing hypoxia due to COPD. Her oxygenation levels improved with up to 1 to 2 L of oxygen supplementation. Home O2 evaluation was done prior to discharge. Patient was seen by physical therapist and safe discharge plan were discussed in detail. Patient wants to go home with home health. She is been discharged in medically stable condition advised to follow-up with primary care provider within 1 week, have an outpatient pulmonary function test within next couple of weeks at earliest available appointment and follow-up with a avionics systems technician. Discharge planning were discussed in detail with patient and patient's family at bedside. Nebulizer has been made available to patient as well. Physical Exam Const: COMMON NORMALS: patient oriented x3 and alert GENERAL APPEARANCE: cooperative ORIENTATION/CONSCIOUSNESS: Yes awake HENMT: COMMON NORMALS: oropharynx normal Neck/C-Spine: COMMON NORMALS: no JVD Resp: COMMON NORMALS: normal respiratory effort and clear to auscultation bilaterally AUSCULTATION: clear to auscultation bilaterally and diminished lung sounds (Very diminished) Cardio: COMMON NORMALS: no JVD, regular rhythm, S1 normal heart sound present, S2 normal heart sound present and No murmurs present (Cardio) RHYTHM: regular rhythm HEART SOUNDS: S1 normal heart sound present and S2 normal heart sound present GI: COMMON NORMALS: Normal to inspection, nondistended, normoactive bowel sounds present, Soft to palpation and non-tender PALPATION: Yes Soft to palpation Extremity: COMMON NORMALS: no joint enlargement and no pedal edema Neuro: COMMON NORMALS: patient oriented x3 and moves all extremities SENSORIUM/ORIENTATION: Yes alert Skin: COMMON NORMALS: no rashes or lesions noted GENERAL SKIN EXAM: no rashes or lesions noted OTHER: Decreased turgor Discharge Data Studies Completed and Pending Completed Studies During Hospitalization Category Date Time Status CT head wo con* [id number] Stat Cat Scan 09/06/22 14:[address] lumbar spine wo con* [id number] Stat Cat Scan 09/06/22 14:53 Completed XR chest 1V portable [id number] Stat Exams 09/06/22 14:50 Completed XR knee RT 3V* [id number] Stat Exams 09/06/22 14:50 Completed NM pulmonary ventilation and perfusion [NM pul vent and Nuc Med 09/07/22 08:00 Completed perfus* [id number]] Stat CV. echo complete* [id number] Stat Ultrasound 09/06/22 17:35 Completed Pending at discharge Category Date Time Status Arterial Blood Gas Full Stat Lab 09/08/22 07:49 Ordered Complete Blood Count w/Auto AM LABS Lab 09/09/22 04:00 Ordered Comprehensive Metabolic Panel AM LABS Lab 09/09/22 04:00 Ordered Radiology Impressions Chest X-Ray 09/06/22 14:50 IMPRESSION: No acute findings. Knee X-Ray 09/06/22 14:50 IMPRESSION: No acute findings. Head CT 09/06/22 14:53 IMPRESSION: No acute intracranial abnormality. Lumbar Spine CT 09/06/22 14:53 IMPRESSION: 1. No acute bony abnormality. 2. There is mild central canal stenosis L4-L5 Pulmonary Perfusion Imaging 09/07/22 08:00 IMPRESSION: 1. Normal perfusion. No evidence of pulmonary embolism. 2. No ventilation perfusion mismatch Echocardiogram: CONCLUSIONS ?LV systolic function is normal with EF of 60-65% ?Grade 1 diastolic dysfunction ?Mild mitral annular calcification. Trace mitral regurgitation ?Trace tricuspid regurgitation ?No comparison studies are available ?Tanner Turner MD ?(Electronically Signed) ?Final Date:? ? ? 07 September 2022 ? 10:10 Laboratory Results WBC 13.0 10^3/uL (4.0-10.0) H 09/07/22 05:10 RBC 4.05 10^6/uL (4.1-5.3) L 09/07/22 05:10 Hgb 12.4 g/dL (11.5-15.3) 09/07/22 05:10 Hct 39.0 % (37.0-47.0) 09/07/22 05:10 MCV 96.3 fl (81-99) 09/07/22 05:10 MCH 30.6 pg (28.0-34.0) 09/07/22 05:10 MCHC 31.8 g/dL (30.0-36.0) 09/07/22 05:10 RDW 12.9 % (12.1-15.1) 09/07/22 05:10 Plt Count 269 10^3/cmm (130-400) 09/07/22 05:10 MPV 9.1 fL (7.4-10.4) 09/07/22 05:10 Neut % (Auto) 75.0 % 09/07/22 05:10 Lymph % (Auto) 11.2 % 09/07/22 05:10 [place] % (Auto) 8.6 % 09/07/22 05:10 Eos % (Auto) 0.4 % 09/07/22 05:10 Baso % (Auto) 0.6 % 09/07/22 05:10 Neut # (Auto) 9.74 10^3/uL (1.8-7.7) H 09/07/22 05:10 Lymph # (Auto) 1.5 10^3/uL (0.8-4.8) 09/07/22 05:10 [place] # (Auto) 1.1 10^3/uL (0.2-0.9) H 09/07/22 05:10 Eos # (Auto) 0.1 10^3/uL (0.0-0.8) 09/07/22 05:10 Baso # (Auto) 0.1 10^3/uL (0.0-0.1) 09/07/22 05:10 Nucleated RBC % (auto) 0 % 09/07/22 05:10 Nucleated RBCs # 0.0 /100WBC 09/07/22 05:10 Specimen Type Arterial 09/06/22 15:49 Sample Site Radial, left 09/06/22 15:49 ABG pH 7.39 (7.35-7.45) 09/06/22 15:49 ABG pCO2 43.4 mmHg (35-45) 09/06/22 15:49 ABG pO2 87.8 mmHg (80.0-100.0) 09/06/22 15:49 ABG HCO3 26.4 mmol/L (22-26) H 09/06/22 15:49 ABG Base Excess 1.1 mmol/L (-2.0-2.0) 09/06/22 15:49 [place] Test Pos 09/06/22 15:49 Hematocrit 36.3 % (37-47) L 09/06/22 15:49 O2 Delivery Device Nc 09/06/22 15:49 FiO2 28.0 % 09/06/22 15:49 Sanitarian ID Cak 09/06/22 15:49 Sodium 137 mmol/L (136-145) 09/07/22 08:59 Potassium 3.6 mmol/L (3.5-5.1) 09/07/22 08:59 Chloride 98 mmol/L (98-107) 09/07/22 08:59 Carbon Dioxide 24 mmol/L (22-29) 09/07/22 08:59 Anion Gap 18.6 (5-19) 09/07/22 08:59 BUN 44 mg/dL (8-23) H 09/07/22 08:59 Creatinine 1.0 mg/dL (0.5-0.9) H 09/07/22 08:59 GFR Calculation Not Reportable 09/07/22 08:59 Glucose 119 mg/dL (65-115) H 09/07/22 08:59 Calculated Osmolality 296 mOsm/kg (285-295) H 09/07/22 08:59 Calcium 9.5 mg/dL (8.5-10.5) 09/07/22 08:59 Total Bilirubin 0.4 mg/dL (0.15-1.2) 09/07/22 08:59 AST 26 U/L (0-32) 09/07/22 08:59 ALT 15 U/L (0-33) 09/07/22 08:59 Alkaline Phosphatase 121 U/L (35-105) H 09/07/22 08:59 Troponin T Baseline 24 ng/L (0-10) H 09/06/22 15:50 Troponin T 120 Minute 20.04 ng/L (0-10) H 09/06/22 17:54 Delta Troponin T -3.96 ABS# (0-10) L 09/06/22 17:54 Troponin T Hi Sens 6Hr 20.50 ng/L (0-10) H 09/06/22 22:30 Troponin T Hi Sens 6Hr Delta -3.50 ng/L (0-12) L 09/06/22 22:30 NT-Pro-B Natriuret Pep 1803 pg/mL (0-125) H 09/06/22 15:50 Total Protein 6.8 g/dL (6.6-8.7) 09/07/22 08:59 Albumin 3.0 g/dL (3.5-5.2) L 09/07/22 08:59 Globulin 3.8 g/dL (1.3-4.6) 09/07/22 08:59 TSH 0.41 uIU/mL (0.27-4.20) 09/07/22 08:59 Urine Color Yellow (Yellow) 09/06/22 16:25 Urine Appearance Clear (CLEAR) 09/06/22 16:25 Urine pH 5 (5-7) 09/06/22 16:25 Ur Specific [place] 1.020 (1.005-1.030) 09/06/22 16:25 Urine Protein Neg (Negative) 09/06/22 16:25 Urine Glucose (UA) Norm (Normal) 09/06/22 16:25 Urine Ketones 1+ (Negative) H 09/06/22 16:25 Urine Blood Neg (Negative) 09/06/22 16:25 Urine Nitrate Negative (Negative) 09/06/22 16:25 Urine Bilirubin Neg (Negative) 09/06/22 16:25 Urine Urobilinogen Neg mg/dL (Negative) 09/06/22 16:25 Ur Leukocyte Esterase Negative (Negative) 09/06/22 16:25 Nasal Influ A H1 2009 PCR Not detected (NOT DETECT) 09/07/22 20:45 Valproic Acid 2.8 ug/mL (50-100) L 09/06/22 15:50 Adenovirus (PCR) Not detected (NOT DETECT) 09/07/22 20:45 C. pneumoniae DNA (PCR) Not detected (NOT DETECT) 09/07/22 20:45 Coronavirus 229E (PCR) Not detected (NOT DETECT) 09/07/22 20:45 Human Metapneumovir PCR Not detected (NOT DETECT) 09/07/22 20:45 Influenza A (H1) PCR Not detected (NOT DETECT) 09/07/22 20:45 Influenza A (H3) PCR Not detected (NOT DETECT) 09/07/22 20:45 Influenza Type A Ag negative (Negative) 09/06/22 16:00 Influenza Type A (PCR) Not detected (NOT DETECT) 09/07/22 20:45 Influenza Type B Ag negative (Negative) 09/06/22 16:00 Influenza Type B (PCR) Not detected (NOT DETECT) 09/07/22 20:45 M. pneumoniae (PCR) Not detected (NOT DETECT) 09/07/22 20:45 Parainfluenza 1 (PCR) Not detected (NOT DETECT) 09/07/22 20:45 Parainfluenza 2 (PCR) Not detected (NOT DETECT) 09/07/22 20:45 Parainfluenza 3 (PCR) Not detected (NOT DETECT) 09/07/22 20:45 Parainfluenza 4 (PCR) Not detected (NOT DETECT) 09/07/22 20:45 RSV Type A (PCR) Not detected (NOT DETECT) 09/07/22 20:45 RSV Type B (PCR) Not detected (NOT DETECT) 09/07/22 20:45 Entero/Rhino (PCR) Not detected (NOT DETECT) 09/07/22 20:45 SARS-CoV-2 (PCR) Not detected (NOT DETECT) 09/07/22 20:45 Vitals Last Vital Signs Temp 98.0 F 09/08/22 11:39 Pulse 82 09/08/22 12:00 Resp 22 H 09/08/22 12:00 BP 133/74 09/08/22 11:39 Pulse Ox 92 09/08/22 12:00 O2 Del Method 09/08/22 12:00 O2 Flow Rate 2 09/08/22 12:00 Discharge Plan Discharge Patient Disposition: Home Condition: Stable Prescriptions: New ipratropium-albuterol 0.5 mg-3 mg(2.5 mg base)/3 mL solution for nebulization 3 ml inhalation Q6H PRN (Reason: shortness of breath or wheezing) Qty: 180 0RF prednisone 10 mg tablet See Rx Instructions .ROUTE .COMPLEX Qty: 30 0RF Rx Instructions: prednisone 5 mg: take 8 tablets (40 mg) on Day 1; 7 tablets (35 mg) on Day 2; then decrease by 1 tablet every day until finished Continued atorvastatin 20 mg tablet 20 mg PO BEDTIME hydrocodone-acetaminophen 5-325 mg tablet 1 tab PO BID PRN (Reason: Pain) lisinopril 20 mg tablet 20 mg PO DAILY aspirin [Ami Low Dose Aspirin] 81 mg Tablet,Delayed Release (Dr/Ec) 81 mg PO DAILY albuterol sulfate [Ventolin HFA] 90 mcg/actuation HFA aerosol inhaler 2 puff INHALATION Q4H PRN (Reason: Shortness Of Breath) duloxetine 60 mg capsule,delayed release(DR/EC) 120 mg PO QAM budesonide-formoterol [Symbicort] 160-4.5 mcg/actuation HFA aerosol inhaler 2 puff INHALATION BID One-A-Day Womens Formula 18 mg iron-400 mcg-500 mg Tablet 1 tab PO DAILY ascorbic acid (vitamin C) [Vitamin C] 500 mg Tablet 500 mg PO BEDTIME alprazolam 1 mg tablet 1 mg PO TID PRN (Reason: Anxiety) quetiapine 25 mg tablet 25 mg PO QAM quetiapine 100 mg tablet 100 mg PO BEDTIME Discharge Orders: Discharge Order (Routine); Ordered 09/08/22 Ordered By: Bakari Mcfadden Other Ambulatory Orders: DME: Nebulizer with Neb Kit (Order) Location: None Selected Ordered By: Bakari Mcfadden DME: Oxygen (Order) Location: None Selected Ordered By: Bakari Mcfadden Pulmonary Function Screen with Bronchodilator (Routine) Timeframe: 1 Week Facility: [facility] - Location: Respiratory Therapy Ordered By: Bakari Mcfadden Referrals: Chinedu Elias MD [Physician] - 2 weeks Sushant Ogden DO [Primary Care Provider] - 7-10 days Discharge Diet: Regular Discharge Activity: Resume usual activity and Increase activity as tolerated Patient Instructions: Opioid Safety Activity Restrictions/Additional Instructions: Please try to avoid smoking as much as possible. Please use inhaler and nebulizer as discussed in detail. Continue using oxygen both at rest and ambulation. Please follow-up with various providers as suggested. Discharge Attestations Time Spent in Discharge Care*: greater than 30 min Specific Discharge Activities: educating patient, educating and/or supporting family/caregiver, discussing with manager of case/social workers/dc planners, documenting/other paperwork and evaluating patient/reviewing data Time Spent in Smoking Cessation: more than 10 minutes Status at Discharge: Cognitive status at discharge: cognitively intact, Behavioral status at discharge: cooperative, Functional status at discharge: uses cane/walker, Overall status at discharge: patient is back to baseline Quality Metrics Clinical Quality Measures [ No reported AMI, CVA or VTE this stay] Coding Level of Care Code Acute Chg DC note History Comprehensive Exam Comprehensive Medical Decision Making High Complexity Diagnoses COPD (chronic obstructive pulmonary disease) J44.9 Syncope R55 Hypoxia R09.02 Falls frequently R29.6 CKD (chronic kidney disease) N18.9 Troponin level elevated R77.8 Smoking addiction F17.200
== END 2022-09-08 16:23 | disposition home health service (06) ==
LOC: ER 16:51 → MEDSURG 19:00
PROVIDERS: Admitting Provider Internal Medicine; Emergency Provider Emergency Medicine; PCP Internal Medicine; Visit Provider Student in an Organized Health Care Education/Training Program
DX: J44.9 Chronic obstructive pulmonary disease, unspecified (principal); R55 Syncope and collapse; R09.02 Hypoxemia; R29.6 Repeated falls; N18.9 Chronic kidney disease, unspecified; R77.8 Other specified abnormalities of plasma proteins; F17.200 Nicotine dependence, unspecified, uncomplicated
CPT/HCPCS: 36415; 36600; 70450; 71045; 72131; 73562; 78014; 80053; 80164; 81003; 82803; 83880; 84443; 84484; 85025; 87486; 87581; 87633; 87804; 93005; 93306; 94640; 94760; 96372; 97116; 97161; 97530; 99285; A9540; A9567; G0378; J1644; J7120; J7512; J7626

== ENCOUNTER 2022-09-25 13:03 | Outpatient (CLI) | payer MEDICARE, MEDICAID, SELFPAY ==
[2022-09-25 13:54] LABS: Add Urine Microscopic? YES; Bilirubin Urine Neg (Negative); Blood Urine 2+ (Negative); Glucose Urine UA Norm (Normal); Ketones Urine Negative (Negative); Leukocyte Esterase Urine 1+ (Negative); Nitrate Urine Negative (Negative); Protein Urine Neg (Negative); Urine Appearance Hazy (CLEAR); Urine Color Yellow (Yellow); Urobilinogen Urine Norm (Negative); pH Urine 5 (5-7)
[2022-09-25 13:55] LABS: Add Urine Culture? Yes; Bacteria Urine 4+ /hpf; RBC Urine TOO NUMEROUS TO CNT /hpf (0-2); Squamous Epithelial Cell Urine 0-4 /hpf (0-5); WBC Urine TOO NUMEROUS TO CNT /hpf (0-5)
== END 2022-09-25 13:04 | disposition home or self-care (01) ==
LOC: LAB 13:03
PROVIDERS: PCP Internal Medicine; Visit Provider Internal Medicine
DX: R82.90 Unspecified abnormal findings in urine (principal)
CPT/HCPCS: 81001; 87077; 87086; 87186

== ENCOUNTER → 2022-10-18 13:29 | Outpatient (BNVA) | payer MEDICARE, MEDICAID, SELFPAY | PROVIDERS: PCP Internal Medicine; Visit Provider Internal Medicine Pulmonary Disease | DX: J44.9 Chronic obstructive pulmonary disease, unspecified (principal); R06.09 Other forms of dyspnea; R55 Syncope and collapse; M54.50 Low back pain, unspecified; Z87.891 Personal history of nicotine dependence; R29.6 Repeated falls | CPT/HCPCS: 99204 ==

== ENCOUNTER 2022-10-25 13:36 | Outpatient (CLI) | payer MEDICARE, MEDICAID, SELFPAY | END 2022-10-25 13:37 | disposition home or self-care (01) | LOC: RT 13:38 | PROVIDERS: PCP Internal Medicine; Visit Provider Internal Medicine Pulmonary Disease | DX: J44.9 Chronic obstructive pulmonary disease, unspecified (principal) | CPT/HCPCS: 94060; 94726; 94729; J7613 ==

== ENCOUNTER 2022-11-05 08:01 | Outpatient (CLI) | payer MEDICARE, MEDICAID, SELFPAY ==
--- NOTE | 2022-11-05 08:30 | CT_ITS ---
WS: [id number] LDCT LUNG CANCER SCREENING HISTORY: lung screening TECHNIQUE: Axial imaging performed from the apices to 1 cm below the costophrenic angles. Coronal and sagittal reformats are submitted with axial MIP series. All CT scans at [facility] use at least one of these dose optimization techniques: automated exposure control; mA and/or kV adjustment per patient size (includes targeted exams where dose is matched to clinical indication); or iterativ e reconstruction. DLP: 70.11 mGy.cm DIvol: Mean CTDIvol: 1.60 (mGy) COMPARISON: 07/07/2020 Diagnostic quality: Satisfactory Lung Nodules: No discrete lung nodules are identified. Linear area of scarring or atelectasis at the lingula. Increased soft tissue in the RIGHT main bronchus has a few scattered areas of air consistent with secretions. Endobronchial soft tissue Lungs: Marked hyperexpansion and interstitial thickening. Heart: Normal size heart with mild pericardial thickening. Coronary artery calcifications. Other findings: Mild atherosclerosis aorta. Normal size pulmonary artery. No enlarged lymph nodes. Bi lateral breast implants with partial encapsulation by calcification. Known prior thoracic spine osteo porotic compression fractures. CT/CT lung screening [id number] IMPRESSION: LUNG-RADS: 2-Benign Appearance or Behavior FOLLOW UP: 12 Month: Continue annual screening with LDCT OTHER FINDINGS (S MODIFIER): None.
== END 2022-11-05 08:02 | disposition home or self-care (01) ==
LOC: RAD 08:08
PROVIDERS: PCP Internal Medicine; Visit Provider Internal Medicine Pulmonary Disease
DX: Z12.2 Encounter for screening for malignant neoplasm of respiratory organs (principal); F17.210 Nicotine dependence, cigarettes, uncomplicated
CPT/HCPCS: 71271

== ENCOUNTER 2022-11-16 13:40 | Outpatient (CLI) | payer MEDICARE, MEDICAID, SELFPAY ==
--- NOTE | 2022-11-16 13:45 | USCV_ITS ---
Rhianna Fany Age: 72 Gender: F : 1950 Exam Date: 11/16/2022 14:00 Ordering Phys: Chinedu Elias MD Technologist: LUCIA Exam Location: [facility] [place] [facility] Indication: Syncope and Falling Risk Factors: Previous Vascular Surgery: Right Brachial BP: / Left Brachial BP: / Right Left Velocity (cm/s) Spectral Plaque Velocity (cm/s) Spectral Plaque Syst/Diast Broadening Syst/Diast Broadening 65.30/ 15.90 Prox CCA 82.00 / 23.10 50.50/ 17.90 Mid CCA 75.20 / 27.30 62.90/ 24.90 Distal CCA 76.00 / 25.60 60.50/ 19.10 Prox ICA 49.60 / 17.10 80.00/ 28.70 Mid ICA 90.90 / 32.60 96.30/ 32.60 Distal ICA 64.00 / 24.50 46.50 ECA 46.10 1.47 ICA/CCA 1.11 Vertebral 48.60/ 15.80 cm/s 53.90/ 20.80 cm/s Subclavian 72.60 88.00 FINDINGS Comparison: none available. No significant elevation of systolic or diastolic velocities. Diffuse bilateral scattered calcified plaque and intimal thickening throughout the common carotid arteries and extending through the bifurcation. Antegrade vertebral arteries. CONCLUSIONS Bilateral ICA stenosis less than 50%. Mild bilateral carotid atherosclerosis. Dr. Winnie Turcios DO (Electronically Signed) Final Date: 16 November 2022 14:40 S
== END 2022-11-16 13:41 | disposition home or self-care (01) ==
LOC: RAD 13:44
PROVIDERS: PCP Internal Medicine; Visit Provider Internal Medicine Pulmonary Disease
DX: R55 Syncope and collapse (principal); F17.210 Nicotine dependence, cigarettes, uncomplicated; R29.6 Repeated falls; I65.23 Occlusion and stenosis of bilateral carotid arteries
CPT/HCPCS: 93880

== ENCOUNTER → 2023-02-15 10:18 | Outpatient (BNVA) | payer MEDICARE, MEDICAID, SELFPAY | PROVIDERS: PCP Internal Medicine; Visit Provider Internal Medicine Pulmonary Disease | DX: J44.9 Chronic obstructive pulmonary disease, unspecified (principal); R55 Syncope and collapse; M54.50 Low back pain, unspecified; Z87.891 Personal history of nicotine dependence | CPT/HCPCS: 99214 ==

== ENCOUNTER 2023-05-14 06:00 | Outpatient (RCR) | payer MEDICARE, MEDICAID, SELFPAY | END 2023-06-13 23:59 | disposition home or self-care (01) | LOC: PULRHB 06:00 | PROVIDERS: PCP Internal Medicine; Visit Provider Internal Medicine Pulmonary Disease | DX: J44.9 Chronic obstructive pulmonary disease, unspecified (principal) | CPT/HCPCS: 94625 ==

== ENCOUNTER 2023-06-05 10:25 | Outpatient (RCR) | payer MEDICARE, MEDICAID, SELFPAY | END 2023-06-13 23:59 | disposition home or self-care (01) | LOC: SPT 10:25 | PROVIDERS: Visit Provider Internal Medicine Pulmonary Disease | DX: R26.81 Unsteadiness on feet (principal) | CPT/HCPCS: 95992; 97112; 97161 ==

== ENCOUNTER 2023-06-14 06:00 | Outpatient (RCR) | payer MEDICARE, MEDICAID, SELFPAY | END 2023-07-13 23:59 | disposition home or self-care (01) | LOC: SPT 06:00 | PROVIDERS: PCP Internal Medicine; Visit Provider Internal Medicine Pulmonary Disease | DX: R26.81 Unsteadiness on feet (principal) | CPT/HCPCS: 95992 ==

== ENCOUNTER 2023-07-19 19:13 | Inpatient (IN) | payer MEDICARE, MEDICAID, SELFPAY ==
[2023-07-19 19:16] VITALS: BP 134/92; PULSE 78; RESP 18; TEMP 36.8; O2SAT 95; BMI 31.2
--- NOTE | 2023-07-19 19:37 | CTR_ITS ---
PROCEDURE INFORMATION: Exam: CT Cervical Spine Without Contrast Exam date and time: 07/19/2023 8:09 PM Age: 73 years old Clinical indication: Injury or trauma; Blunt trauma; Patient HX: Patient found on floor by bed at home. Patient does not remember fall. Hematoma to RT parietal. C/O RT hip pain. ; Additional info: Fall head trauma confusion TECHNIQUE: Imaging protocol: Computed tomography of the cervical spine without contrast. Radiation optimization: All CT scans at this facility use at least one of these dose optimization techniques: automated exposure control; mA and/or kV adjustment per patient size (includes targeted exams where dose is matched to clinical indication); or iterative reconstruction. REPORTING DATA: Count of CT and Cardiac NM exams in prior 12 months: This patient has received 3 known CTs and 0 known cardiac nuclear medicine studies in the 12 months prior to the current study. COMPARISON: CT cervical spin wo con* [id number] 01/29/2022 6:53 AM RADIATION DOSE METRICS: Total DLP (mGy-cm): 398.91 FINDINGS: Bones/joints: No acute fracture of the cervical spine. Straightening of normal cervical lordosis is likely positional. Mild posterior subluxation of the right C1 lateral mass relative to the right C2 facet (sagittal image 41). No severe central masses. Moderate bilateral neural foraminal narrowing at C5-C6 secondary to uncovertebral hypertrophy and facet arthropathy. Lungs: Emphysema at the lung apices. Vasculature: Retropharyngeal course of the bilateral common carotid arteries. Atherosclerotic calcifications at the carotid bulb bilaterally. Soft tissues: Unremarkable. CT/CT cervical spin wo con* [id number] IMPRESSION: 1. No acute fracture of the cervical spine. 2. Mild subluxation of the right lateral C1 mass relative to the right C2 facet but with normal atlanto dens interval. This is favored related to patient positioning with head slightly turned to the right and/or degenerative sequela. MRI may be obtained to exclude acute ligamentous injury.
--- NOTE | 2023-07-19 19:37 | CTR_ITS ---
PROCEDURE INFORMATION: Exam: CT Pelvis Without Contrast; Skeletal Exam date and time: 07/19/2023 8:12 PM Age: 73 years old Clinical indication: Injury or trauma; Blunt trauma (contusions or hematomas); Right; Prior surgery; Surgery date: 6+ months; Surgery type: Hysterectomy; Patient HX: Patient found on floor by bed at home. Patient does not remember fall. Hematoma to RT parietal. C/O RT hip pain. ; Additional info: Fall right hip pain TECHNIQUE: Imaging protocol: Computed tomography of the pelvis without contrast. Exam focused on the skeleton. Radiation optimization: All CT scans at this facility use at least one of these dose optimization techniques: automated exposure control; mA and/or kV adjustment per patient size (includes targeted exams where dose is matched to clinical indication); or iterative reconstruction. REPORTING DATA: Count of CT and Cardiac NM exams in prior 12 months: This patient has received 3 known CTs and 0 known cardiac nuclear medicine studies in the 12 months prior to the current study. COMPARISON: CT kidney stone [id number] 03/02/2017 12:03 PM RADIATION DOSE METRICS: Total DLP (mGy-cm): 474.68 FINDINGS: Appendix: The appendix is not visualized. No secondary signs of appendicitis. Reproductive: The uterus and right ovary are absent. Normal left ovary. Diverticulosis of the distal colon. No diverticulitis. Bones/joints: Mildly displaced comminuted fracture in the right inferior pubic ramus. The other bones are intact. Soft tissues: Small fat containing umbilical hernia. CT/CT bony pelvis [id number] IMPRESSION: 1. Comminuted mildly displaced right inferior pubic ramus fracture.
--- NOTE | 2023-07-19 19:37 | CTR_ITS ---
PROCEDURE INFORMATION: Exam: CT Head Without Contrast Exam date and time: 07/19/2023 8:05 PM Age: 73 years old Clinical indication: Injury or trauma; Blunt trauma (contusions or hematomas); Patient HX: Patient found on floor by bed at home. Patient does not remember fall. Hematoma to RT parietal. C/O RT hip pain. ; Additional info: Fall head trauma confusion TECHNIQUE: Imaging protocol: Computed tomography of the head without contrast. Radiation optimization: All CT scans at this facility use at least one of these dose optimization techniques: automated exposure control; mA and/or kV adjustment per patient size (includes targeted exams where dose is matched to clinical indication); or iterative reconstruction. REPORTING DATA: Count of CT and Cardiac NM exams in prior 12 months: This patient has received 3 known CTs and 0 known cardiac nuclear medicine studies in the 12 months prior to the current study. COMPARISON: CT head wo con* [id number] 09/06/2022 3:27 PM RADIATION DOSE METRICS: Total DLP (mGy-cm): 1030.58 FINDINGS: Brain: No acute intracranial hemorrhage. No mass effect or midline shift. Basal cisterns are patent. Normal rosario-white matter differentiation. Cerebral vascular calcifications. Chronic white matter changes. Cerebral ventricles: No ventriculomegaly. Paranasal sinuses: Visualized sinuses are unremarkable. Mastoid air cells: Visualized mastoid air cells are clear. Orbital cavities: Post bilateral cataract lens replacement. Bones/joints: No acute calvarial fracture. Soft tissues: Right lateral scalp soft tissue swelling with focal hematoma. CT/CT head wo con* [id number] IMPRESSION: 1. Right lateral scalp hematoma without underlying calvarial fracture. 2. No acute intracranial hemorrhage.
--- NOTE | 2023-07-19 19:38 | XRR_ITS ---
PROCEDURE INFORMATION: Exam: XR Chest Exam date and time: 07/19/2023 7:56 PM Age: 73 years old Clinical indication: Other: AMS TECHNIQUE: Imaging protocol: Radiologic exam of the chest. Views: 1 view. COMPARISON: CT lung screening [id number] 11/05/2022 8:21 AM FINDINGS: Lungs: Emphysema. Mild chronic interstitial changes in both lungs. Mild atelectasis or scar in the peripheral left base. No consolidation. Pleural spaces: Unremarkable. No pleural effusion. No pneumothorax. Heart/Mediastinum: Unremarkable. No cardiomegaly. Bones/joints: Rightward thoracic curvature and degenerative changes. Multiple chronic midthoracic compression fractures. Degenerative changes of the right glenohumeral joint. Soft tissues: Bilateral breast implants with capsular calcifications. XR/XR chest 1V portable [id number] IMPRESSION: No acute findings.
--- NOTE | 2023-07-19 19:39 | ECG_ITS ---
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 Measurements Intervals [place] Rate: 77 P: 70 UT: 165 QRS: 44 QRSD: 90 T: 67 QT: 374 QTc: 425 Interpretive Statements SINUS RHYTHM LOW QRS VOLTAGE IN PRECORDIAL LEADS [QRS DEFLECTION < 1.0 mV IN CHEST LEADS] Compared to ECG 09/06/2022 17:07:23 Low QRS voltage now present Electronically Signed On 07-19-2023 20:07:43 CDT by Steff Yusuf M.D. [email or web address]
[2023-07-19] MEDS: sodium chloride 0.9% 1,000 ML 999 ML IV (19:50)
[2023-07-19 19:52] LABS: Basophils % 0.4 %; Eosinophils # 0.3 10^3/uL (0.0-0.8); Eosinophils % 3.9 %; Hematocrit 32.3 % (36-47); Lymphocytes # 1.6 10^3/uL (0.8-4.8); Lymphocytes % 23.4 %; Mean Corpuscular HGB Conc 32.2 g/dL (30-55); Mean Corpuscular Hemoglobin 30.7 pg (27-33); Mean Corpuscular Volume 95.3 fl (85-98); Mean Platelet Volume 9.1 fL (7.4-10.4); Monocytes # 0.5 10^3/uL (0.2-0.9); Monocytes % 7.7 %; Neutrophils # 4.45 10^3/uL (1.8-7.7); Neutrophils % 63.5 %; Nucleated Red Blood Cells % 0 %; Platelet Count 197 10^3/cmm (157-399); Red Blood Count 3.39 10^6/uL (3.85-5.65); Red Cell Distribution Width 11.9 % (12.1-15.1); White Blood Count 7.01 10^3/uL (3.29-11.43)
--- NOTE | 2023-07-19 20:09 | ED_ITS ---
HPI - Fall General: Chief Complaint: Fall Stated Complaint: FALL/R HIP PAIN Time Seen by Provider: 07/19/23 19:19 Source: patient and family History of Present Illness: 73-year-old female lives alone. She was found on the floor of her home by the bedroom with a bump on her head. She does not know how she got to the floor. She believes she was sitting. Her family believes she fell. She complains of right hip pain and thigh pain, she denies headache. She is confused. Family notes that she has had increasing confusion for the past several weeks. She has had some falls at home as well. No history of fever. No vomiting. The patient normally wears oxygen. The patient herself is a poor historian. MD complaint: fall Onset (ago): unknown Fall from: standing and other Fall witnessed: no Place fall occurred: home Loss of consciousness: Unknown Prolonged down time: unclear Context: other Location of injury: head Location of injury - extremities: Right: thigh Associated symptoms-after fall: Denies abdominal pain, chest pain or headache(s) Review of Systems General: Reports: ROS unobtainable due to medical condition Const: Denies: fever(s) Card: Denies: chest pain Resp: Reports: dyspnea (Chronic); Denies: productive cough or non-productive cough GI: Denies: abdominal pain or vomiting Neuro: Denies: headache(s) PFSH ED PFSH: Medical History CKD (chronic kidney disease) COPD with acute bronchitis Hyperlipidemia Hypertension Smoking addiction Surgical History H/O: hysterectomy Hx of cholecystectomy Family History Other Raynaud's disease Social History Smoking and tobacco status: former smoker Quit status (tobacco): has quit using tobacco Year quit tobacco: August 2022 Former quit date comment: 1-1.5ppd x 53 years Alcohol intake: never Substance/Drug Use: never Lives independently: Yes Household members: none Additional social history: Daughter is her DPOA Physical Exam Const: GENERAL APPEARANCE: cooperative and frail appearing HENMT: COMMON NORMALS: normocephalic and Normal external nose present HEAD & SCALP: normocephalic and hematoma (Right parietal) FACE & SINUS: normal facial exam and face symmetric NOSE: Normal external nose present Eye: COMMON NORMALS: Equal, round and reactive pupils present and EOMs intact bilaterally PUPIL: Yes Equal, round and reactive pupils present Neck/C-Spine: GENERAL: Yes trachea midline Chest: CHEST: Yes Symmetrical chest wall rise Resp: COMMON NORMALS: normal respiratory effort, No retractions, No use of accessory muscles and clear to auscultation bilaterally AUSCULTATION: clear to auscultation bilaterally Cardio: COMMON NORMALS: regular rate and regular rhythm RATE: regular rate RHYTHM: regular rhythm GI: COMMON NORMALS: Normal to inspection, nondistended, normoactive bowel sounds present Extremity: COMMON NORMALS: no pedal edema NARRATIVE EXTREMITY EXAM: Right hip held in external rotation. There is pain with movement of the hip. No pain with pelvic compression. Neuro: LAINE COMA SCALE: document GCS findings [place] coma scale eye opening: Spontaneous [place] coma scale verbal response: Orientated [place] coma scale motor response: Obey commands [place] coma scale total score: 15 SENSORY EXAM: Yes extremities (intact) Psych: COMMON NORMALS: speech normal SPEECH: Yes normal speech Skin: COMMON NORMALS: no rashes or lesions noted GENERAL SKIN EXAM: no rashes or lesions noted Course Vital Signs: Vital signs: Vital Signs Temperature 98.3 F 07/19/23 19:16 Pulse Rate 73 07/19/23 21:25 Respiratory Rate 18 07/19/23 19:16 Blood Pressure 134/92 07/19/23 21:25 Pulse Oximetry 91 07/19/23 21:25 Oxygen Delivery Me thod Nasal Cannula 07/19/23 21:25 MDM - Fall Medical Decision Making Vitals are stable here. She has a significant right-sided parietal scalp hematoma. Head CT is negative otherwise. Hemoglobin is 10.4. Creatinine is 1.6 which is roughly baseline. Other laboratory is not remarkable. Urinalysis does show a nitrate positive urine, but only rare whites. We will elect to treat this in the setting of mental status changes, although there may not be significant infection present. CT of the pelvis shows a comminuted mildly displaced right inferior pubic ramus fracture accounting for her right hip/pelvic pain. Attempting to stand her now. Patient cannot stand or walk. She will have to be observed. Call out to hospitalist. Spoke with hospitalist. Agrees to admit. Orthopedics consulted from the ER. They will see tomorrow. Lab Data 07/19/23 19:48 07/19/23 19:48 Radiology Impressions Cervical Spine CT 07/19/23 19:37 IMPRESSION: 1. No acute fracture of the cervical spine. 2. Mild subluxation of the right lateral C1 mass relative to the right C2 facet but with normal atlanto dens interval. This is favored related to patient positioning with head slightly turned to the right and/or degenerative sequela. MRI may be obtained to exclude acute ligamentous injury. Head CT 07/19/23 19:37 IMPRESSION: 1. Right lateral scalp hematoma without underlying calvarial fracture. 2. No acute intracranial hemorrhage. Pelvis CT 07/19/23 19:37 IMPRESSION: 1. Comminuted mildly displaced right inferior pubic ramus fracture. Chest X-Ray 07/19/23 19:38 IMPRESSION: No acute findings. Laboratory Results WBC 7.01 10^3/uL (3.29-11.43) 07/19/23 19:48 RBC 3.39 10^6/uL (3.85-5.65) L 07/19/23 19:48 Hgb 10.40 g/dL (11.27-16.99) L 07/19/23 19:48 Hct 32.3 % (36-47) L 07/19/23 19:48 MCV 95.3 fl (85-98) 07/19/23 19:48 MCH 30.7 pg (27-33) 07/19/23 19:48 MCHC 32.2 g/dL (30-55) 07/19/23 19:48 RDW 11.9 % (12.1-15.1) L 07/19/23 19:48 Plt Count 197 10^3/cmm (157-399) 07/19/23 19:48 MPV 9.1 fL (7.4-10.4) 07/19/23 19:48 Neut % (Auto) 63.5 % 07/19/23 19:48 Lymph % (Auto) 23.4 % 07/19/23 19:48 [place] % (Auto) 7.7 % 07/19/23 19:48 Eos % (Auto) 3.9 % 07/19/23 19:48 Baso % (Auto) 0.4 % 07/19/23 19:48 Neut # (Auto) 4.45 10^3/uL (1.8-7.7) 07/19/23 19:48 Lymph # (Auto) 1.6 10^3/uL (0.8-4.8) 07/19/23 19:48 [place] # (Auto) 0.5 10^3/uL (0.2-0.9) 07/19/23 19:48 Eos # (Auto) 0.3 10^3/uL (0.0-0.8) 07/19/23 19:48 Baso # (Auto) 0.0 10^3/uL (0.0-0.1) 07/19/23 19:48 Nucleated RBC % (auto) 0 % 07/19/23 19:48 Nucleated RBCs # 0.0 /100WBC 07/19/23 19:48 Sodium 138 mmol/L (136-145) 07/19/23 19:48 Potassium 4.7 mmol/L (3.5-5.1) 07/19/23 19:48 Chloride 103 mmol/L (98-107) 07/19/23 19:48 Carbon Dioxide 28 mmol/L (22-29) 07/19/23 19:48 Anion Gap 11.7 (5-19) 07/19/23 19:48 BUN 32 mg/dL (8-23) H 07/19/23 19:48 Creatinine 1.6 mg/dL (0.5-0.9) H 07/19/23 19:48 GFR Calculation Not Reportable 07/19/23 19:48 Glucose 118 mg/dL (65-115) H 07/19/23 19:48 Calculated Osmolality 294 mOsm/kg (285-295) 07/19/23 19:48 Lactic Acid 1.1 mmol/L (0.5-2.2) 07/19/23 19:48 Calcium 9.5 mg/dL (8.5-10.5) 07/19/23 19:48 Magnesium 2.2 mg/dL (1.7-2.3) 07/19/23 19:48 Total Bilirubin 0.2 mg/dL (0.15-1.2) 07/19/23 19:48 AST 20 U/L (0-32) 07/19/23 19:48 ALT 14 U/L (0-33) 07/19/23 19:48 Alkaline Phosphatase 78 U/L (35-105) 07/19/23 19:48 Creatine Kinase 128 U/L (26-192) 07/19/23 19:48 C-Reactive Protein 3.0 mg/L (0.0-4.9) 07/19/23 19:48 Total Protein 6.6 g/dL (6.6-8.7) 07/19/23 19:48 Albumin 4.1 g/dL (3.5-5.2) 07/19/23 19:48 Globulin 2.5 g/dL (1.3-4.6) 07/19/23 19:48 Urine Color Yellow (Yellow) 07/19/23 20:32 Urine Appearance Clear (CLEAR) 07/19/23 20:32 Urine pH 5 (5-7) 07/19/23 20:32 Ur Specific [place] 1.020 (1.005-1.030) 07/19/23 20:32 Urine Protein Neg (Negative) 07/19/23 20:32 Urine Glucose (UA) Norm (Normal) 07/19/23 20:32 Urine Ketones Negative (Negative) 07/19/23 20:32 Urine Blood Neg (Negative) 07/19/23 20:32 Urine Nitrate Positive (Negative) H 07/19/23 20:32 Urine Bilirubin Neg (Negative) 07/19/23 20:32 Urine Urobilinogen Neg mg/dL (Negative) 07/19/23 20:32 Ur Leukocyte Esterase Trace (Negative) H 07/19/23 20:32 Urine RBC None /hpf (0-2) 07/19/23 20:32 Urine WBC Rare /hpf (0-5) 07/19/23 20:32 Ur Squamous Epith Cells Rare /hpf (0-5) 07/19/23 20:32 Amorphous Sediment Not Reportable 07/19/23 20:32 Urine Bacteria 2+ /hpf (NONE) H 07/19/23 20:32 All radiology interpretation(s) finalized by discharge Discharge Plan Discharge Patient Disposition: Placed in Observation Clinical Impression: Closed fracture of right inferior pubic ramus Coding Level of Care Code ED Travel Registered Nurse Pacu for 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
[2023-07-19 20:13] LABS: Alanine Aminotransferase 14 U/L (0-33); Albumin Level 4.1 g/dL (3.5-5.2); Alkaline Phosphatase 78 U/L (35-105); Anion Gap 11.7 (5-19); Aspartate Amino Transferase 20 U/L (0-32); Blood Urea Nitrogen 32 mg/dL (8-23); Calcium 9.5 mg/dL (8.5-10.5); Carbon Dioxide 28 mmol/L (22-29); Chloride 103 mmol/L (98-107); Creatine Phosphokinase 128 U/L (26-192); Globulin 2.5 g/dL (1.3-4.6); Glucose 118 mg/dL (65-115); Magnesium 2.2 mg/dL (1.7-2.3); Osmolality Calculated 294 mOsm/kg (285-295); Potassium 4.7 mmol/L (3.5-5.1); Sodium 138 mmol/L (136-145); Total Bilirubin 0.2 mg/dL (0.15-1.2); Total Protein 6.6 g/dL (6.6-8.7)
[2023-07-19 20:14] LABS: Lactic Sepsis W/Reflex 1.1 mmol/L (0.5-2.2)
[2023-07-19 20:51] LABS: Add Urine Culture? Yes; Add Urine Microscopic? YES; Bacteria Urine 2+ /hpf; Bilirubin Urine Neg (Negative); Blood Urine Neg (Negative); Glucose Urine UA Norm (Normal); Ketones Urine Negative (Negative); Leukocyte Esterase Urine Trace (Negative); Nitrate Urine Positive (Negative); Protein Urine Neg (Negative); Squamous Epithelial Cell Urine RARE /hpf (0-5); Urine Appearance Clear (CLEAR); Urine Color Yellow (Yellow); Urobilinogen Urine Neg (Negative); WBC Urine RARE /hpf (0-5); pH Urine 5 (5-7)
[2023-07-19 21:25] VITALS: BP 134/92; PULSE 73; O2SAT 91
--- NOTE | 2023-07-19 23:02 | PM.HP ---
Providers/Chief Complaint Admitting Physician: Mike Figueroa MD Primary Care Provider: Sushant Ogden DO Chief Complaint: FALL/R HIP PAIN History of Present Illness Fany Moctezuma is a 73 year old female who is hard of hearing, history of COPD, history of multiple falls, smoking, hypertension, hyperlipidemia, on 3 L at home, history of recurrent syncopal episodes, history of blacking out, lives at home by herself, who presents to [facility] for episode of blacking out, subsequently being found on the floor by family members the neck stay at roughly 5 PM, calling family members confused. Currently patient is alert oriented x2, she follows all commands, no facial droop no slurring of words, she is actually enjoying a [employer] happy meal, she does complain of lower back pain, from her fall, family members at bedside who helps with the history taking as patient often turns to family member for answers. Patient tells me that the last thing she remembered yesterday was that she possibly went to bingo she does not know if she went to bingo or not she thinks she might of just gone to bed. She tells that yesterday evening is a blur and so was this morning. According to family numbers she called her daughter about 5 PM, he made evening plans, but then later about 30 minutes she called the same family member, asking to speak with him, as they were unsure if they had come home from work. Patient was found on the bedroom floor by family members, she does not know how she got on the floor, she has complaints of back pain hip pain thigh pain, denies headache, no fevers, no chills, Review of Systems Const: Denies: fever(s) or chills Eyes: Denies: change in vision Card: Denies: chest pain Resp: Denies: dyspnea GI: Denies: abdominal pain Musc: Reports: back pain; Denies: neck pain Neuro: Reports: weakness in extremities, difficulty walking and frequent falls; Denies: numbness in extremities, dizziness, Slurred speech present or difficulty communicating thoughts Psych: Denies: anxiety Endo: Denies: polyuria Medications/Allergies Home Medications Medication Instructions Recorded Confirmed Last Taken Type albuterol sulfate 90 mcg/actuation 2 puff inhalation Q4H PRN 07/07/20 02/15/23 07/06/20 History aerosol inhaler (Ventolin HFA) Shortness Of Breath aspirin 81 mg tablet,delayed 81 mg PO DAILY 07/07/20 02/15/23 07/07/20 History release (Ami Low Dose Aspirin) atorvastatin 20 mg tablet 20 mg PO BEDTIME 07/07/20 02/15/23 07/07/20 History duloxetine 60 mg capsule,delayed 120 mg PO QAM 07/07/20 02/15/23 07/07/20 History release hydrocodone 5 mg-acetaminophen 325 1 tab PO BID PRN Pain 07/07/20 02/15/23 07/06/20 History mg tablet lisinopril 20 mg tablet 20 mg PO DAILY 07/07/20 02/15/23 07/07/20 History tecreljh-qna-njws-FA-Ca carb-vit K 1 tab PO DAILY 07/07/20 02/15/23 07/07/20 History 18 mg iron-400 mcg-500 mg tablet (One-A-Day Womens Formula) ascorbic acid (vitamin C) 500 mg 500 mg PO BEDTIME 01/29/22 02/15/23 Unknown History tablet (Vitamin C) alprazolam 1 mg tablet 1 mg PO TID PRN Anxiety 09/06/22 02/15/23 Unknown History quetiapine 100 mg tablet 100 mg PO BEDTIME 09/06/22 02/15/23 Unknown History quetiapine 25 mg tablet 25 mg PO QAM 09/06/22 02/15/23 Unknown History ipratropium 0.5 mg-albuterol 3 mg 3 ml inhalation Q6H PRN shortness 02/15/23 02/15/23 Unknown Rx (2.5 mg base)/3 mL nebulization of breath or wheezing #180 mL soln glycopyrrolate 9 mcg-formoterol 2 puff inhalation BID #10.7 grams 03/21/23 Unknown Rx 4.8 mcg HFA aerosol inhaler (Bevespi Aerosphere) Allergies Allergy/AdvReac Type Severity Reaction Status Date / Time codeine Allergy Unknown Verified 07/19/23 19:21 Penicillins Allergy Unknown Verified 07/19/23 19:21 PFSH Acute PFSH: Medical History CKD (chronic kidney disease) COPD with acute bronchitis Hyperlipidemia Hypertension Smoking addiction Surgical History H/O: hysterectomy Hx of cholecystectomy Family History Other Raynaud's disease Social History Smoking and tobacco status: former smoker Quit status (tobacco): has quit using tobacco Year quit tobacco: August 2022 Former quit date comment: 1-1.5ppd x 53 years Alcohol intake: never Substance/Drug Use: never Lives independently: Yes Household members: none Additional social history: Daughter is her DPOA Vitals/I&O/Wt Last Vital Signs Temp 98.3 F 07/19/23 19:16 Pulse 73 07/19/23 21:25 Resp 18 07/19/23 19:16 BP 134/92 07/19/23 21:25 Pulse Ox 91 07/19/23 21:25 O2 Del Method Nasal Cannula 07/19/23 21:25 Weight last 48 hrs Weight 72.575 kg Physical Exam Const: COMMON NORMALS: no acute distress and patient oriented x3 GENERAL APPEARANCE: cooperative, well kempt and well developed HENMT: COMMON NORMALS: normocephalic and Normal external nose present HEAD & SCALP: normocephalic FACE & SINUS: normal facial exam NOSE: Normal external nose present MOUTH: Normal oral and palatal mucosa present Eye: COMMON NORMALS: Equal, round and reactive pupils present, EOMs intact bilaterally, conjunctivae normal and no scleral icterus CONJUNCTIVA: Yes conjunctivae normal PUPIL: Yes Equal, round and reactive pupils present Neck/C-Spine: COMMON NORMALS: full ROM, no lymphadenopathy, no JVD, Thyroid normal and No carotid bruits Lymph: LYMPHATIC: no lymphadenopathy noted Chest: COMMONS NORMALS: normal inspection of the chest Resp: COMMON NORMALS: normal respiratory effort, No retractions, No use of accessory muscles and clear to auscultation bilaterally AUSCULTATION: clear to auscultation bilaterally Cardio: COMMON NORMALS: regular rate, regular rhythm, S1 normal heart sound present, S2 normal heart sound present, No murmurs present (Cardio) and Peripheral pulses 2+ throughout RATE: regular rate RHYTHM: regular rhythm HEART SOUNDS: S1 normal heart sound present and S2 normal heart sound present PERIPHERAL PULSES: Peripheral pulses 2+ throughout GI: COMMON NORMALS: Normal to inspection, nondistended, normoactive bowel sounds present, Soft to palpation and non-tender Back/Pelvis: COMMON NORMALS: no CVA tenderness Extremity: COMMON NORMALS: no calf tenderness and no pedal edema Neuro: COMMON NORMALS: patient oriented x3, CN's II-XII intact bilaterally, moves all extremities and no focal motor deficits OTHER: Has difficulty moving bilateral extremity due to severe low back pain Psych: COMMON NORMALS: mental status grossly normal, Normal thought process present, cooperative and speech normal APPEARANCE: Yes well kempt SPEECH: Yes normal speech THOUGHT PROCESS: Normal thought process present Skin: COMMON NORMALS: turgor normal and no jaundice GENERAL SKIN EXAM: turgor normal Data 07/19/23 19:48 07/19/23 19:48 A&P Assessment and plan (1) Closed fracture of right inferior pubic ramus: (2) Hyperlipidemia: (3) Hypertension: (4) COPD with acute bronchitis: (5) Syncope: (6) Falls frequently: Plan Recurrent syncopal episodes -Patient has recurrent episodes of blacking out, most recent hospitalization was 09/06/2022 -Has had recurrent episodes of falls -CT of the head no acute findings -Carotid Doppler 11/16/2022, bilateral ICA stenosis less than 50% -We will do orthostatic vitals -Serial troponins, serial EKGs, telemetry monitoring, cardiac echo -IV hydration -Neurochecks, aspiration precautions, night stroke scale Urinary tract infection, Rocephin Pubic rami fracture, pain control, PT OT, orthopedic service has been consulted Scalp hematoma, monitor History of COPD Attestations Medical Necessity Statement*: Patient requires hospitalization for pubic rami fracture, syncopal episode, generalized weakness, UTI, inability to ambulate, inpatient, greater than 2 minutes Diagnoses Closed fracture of right inferior pubic ramus S32.591A Hyperlipidemia E78.5 Hypertension I10 COPD with acute bronchitis J44.0; J20.9 Syncope R55 Falls frequently R29.6
[2023-07-20] VITALS (13 sets, daily range): BP systolic 117–135; BP diastolic 67–92; PULSE 76–112; RESP 16–18; TEMP 36.4–36.8; O2SAT 93–99
[2023-07-20 00:01] LABS: Troponin(5th) Baseline 18 ng/L (0-10)
--- NOTE | 2023-07-20 00:05 | PC.NURSE ---
Report called to SELMA Valdez on [place]. All questions and concerns addressed at time of report.
--- NOTE | 2023-07-20 00:33 | USCV_ITS ---
Fany Moctezuma Age: 73 Gender: F : 1950 Exam Date: 07/20/2023 08:33 Ordering Phys: Mike Figueroa MD Technologist: Jerrod Solis Exam Location: [facility] – [place] Indication: syncope BP: 128 / 83 HR: 86 Rhythm: Sinus Technical Quality: Adequate MEASUREMENTS (Male / Female) Normal Values 2D ECHO LVOT Diameter 2.0 cm LV Ejection Fraction MOD 2C 71.7 % LV Ejection Fraction 2C AL 70.7 % LA Diameter 3.0 cm LA Width 2.6 cm LA Height 2.9 cm RA Width 2.9 cm RA Height 3.6 cm Aorta at Sinotubular Diameter 2.4 cm IVC Diameter 1.4 cm M-MODE Aortic Annulus Diameter 2.7 cm LA Ao Ratio MM 1.1 MV E Point Septal Separation 0.6 cm DOPPLER AV Peak Velocity 118.7 cm/s LVOT Peak Velocity 94.0 cm/s AV Area Cont Eq vti 3.5 cm squared AV Area Cont Eq pk 2.6 cm squared MV Peak Velocity 115.0 cm/s MV Area PHT 5.0 cm squared Mitral E to A Ratio 0.8 MV E' Velocity 40.5 cm/s Mitral E to MV E' Ratio 8.2 Mitral E to LV E' Lateral Ratio 6.9 Mitral E to LV E' Septal Ratio 10.3 TR Peak Velocity 119.8 cm/s TR Peak Gradient 5.7 mmHg TR Mean Velocity 89.3 cm/s TR Mean Gradient 3.5 mmHg TR Velocity Time Integral 21.2 cm Right Atrial Pressure 3.0 mmHg Pulmonary Artery Systolic Pressu 8.7 mmHg PV Peak Velocity 97.0 cm/s RV Acceleration Time 0.1 s RV Ejection Time 0.2 s RV AcT/ET 0.4 FINDINGS Left Ventricle Technically difficult study with suboptimal views. Overall normal left ventricular size, systolic function and wall thickness, with no regional wall motion abnormalities. Normal left ventricular wall thickness. Grade 1 diastolic dysfunction. Right Ventricle The right ventricle is normal in size and function. Right Atrium The right atrium is normal in size. Left Atrium The left atrium is normal in size. Mitral Valve Structurally normal mitral valve without significant stenosis or prolapse. There is no mitral regurgitation. Aortic Valve Structurally normal aortic valve without significant sclerosis or stenosis. There is no aortic regurgitation. Tricuspid Valve Structurally normal tricuspid valve without significant stenosis or regurgitation. Pulmonary artery systolic pressure is normal. Pulmonic Valve Not well-visualized. Pericardium Normal pericardium without effusion. Aorta Normal ascending aorta dimension. IVC The inferior vena cava appears normal. CONCLUSIONS Normal LV function. No significant valvular disease within study limitation. Roselyn James MD (Electronically Signed) Final Date: 20 July 2023 10:11 S
[2023-07-20] MEDS: sodium chloride 0.9% 1,000 ML 75 ML IV ×2 (00:56→17:10)
[2023-07-20] MEDS: ciprofloxacin 400 MG/200 ML PREMIX 200 MG IV ×2 (01:01→13:28)
[2023-07-20] MEDS: enoxaparin 40 mg/0.4 mL Syringe SUBCUT (01:02)
[2023-07-20] MEDS: pantoprazole 40 mg SDV IVP (01:05)
[2023-07-20 01:41] LABS: Chol HDL Ratio 2.83 mg/dL (0.0-4.40); Cholesterol 153 mg/dL (0-200); HDL Cholesterol 54 mg/dL (60-100); LDL Cholesterol Calculated 67 mg/dL (50-129); LDL HDL Ratio 1.24 RATIO (0.00-3.22); Thyroid Stimulating Hormone 2.78 uIU/mL (0.27-4.20); Triglycerides 159 mg/dL (0-150)
[2023-07-20 01:52] LABS: Estmated Average Glucose 128; Hemoglobin A1C 6.1 % (4.0-6.0)
[2023-07-20 02:06] LABS: Troponin 5 2HR 18.65 ng/L (0-10)
[2023-07-20 02:07] LABS: Troponin 5 2HR Delta 0.65 ABS# (0-10)
--- NOTE | 2023-07-20 04:53 | ECG_ITS ---
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 Measurements Intervals [place] Rate: 83 P: 80 IN: 158 QRS: 51 QRSD: 82 T: 71 QT: 351 QTc: 415 Interpretive Statements SINUS RHYTHM WITH FREQUENT VENTRICULAR PREMATURE COMPLEXES LOW QRS VOLTAGE [QRS DEFLECTION < 0.5/1.0 mV IN LIMB/CHEST LEADS] Compared to ECG 07/19/2023 19:43:15 Ventricular premature complex(es) now present Electronically Signed On 07-21-2023 23:00:15 CDT by Tanner Turner M.D. [id number]
[2023-07-20 05:45] LABS: Troponin 5 6HR 19.73 ng/L (0-10); Troponin 5 6HR Delta 1.73 ng/L (0-12)
[2023-07-20] MEDS: duloxetine 60 mg Capsule 120 MG PO (06:23)
[2023-07-20] MEDS: quetiapine 25 mg Tablet PO (06:23)
[2023-07-20] MEDS: lisinopril 20 mg Tablet PO (12:48)
[2023-07-20] MEDS: aspirin 81 mg EC Tablet PO (12:48)
--- NOTE | 2023-07-20 12:49 | PC.OT ---
per nurse patient needs to be on hold. awaiting for weight bearing update from dr Jimenez. she requested OT to hold EVALUATION.
--- NOTE | 2023-07-20 13:22 | P.CONIM_ITS ---
Patient seen and examined. Spoke with PA and reviewed assessment and plan. This point time patient has a nonoperative right inferior pubic rami fracture that is minimally displaced. Stable pelvic ring on CT scan we will obtain x- rays of AP pelvis inlet and outlet that way we can monitor for healing upon discharge and in the outpatient setting. No indication for operative interventi on. We will treat with weightbearing as tolerated, utilize walker as needed for assistance. Citracal vitamin D for bone health and healing, aspirin 325 twice daily on discharge for 30 days for blood clot prevention. Follow-up in orthopedic office in 2 weeks. No further orthopedic surgical intervention required at this time orthopedic surgery team will sign off and follow peripherally. Feel free to contact orthopedics on-call for any questions thanks for allowing us to partake in the care of this patient Desmond Jimenez DO Documented by User: BRIEN Jacobs 07/20/23 14:18 Providers/Reason For Consult Consulting Physician/Specialty*: Dr. Tony MARTINO/Orhopedic Surgeon Reason for Consult*: Fracture of inferior right pubic ramus Requesting Physician: Dr. Figueroa Attending Physician: Gretchen Turcios MD Primary Care Provider: Sushant Ogden DO History of Present Illness History of Present Illness Fany Moctezuma is a 73 year old female with history of COPD, history of multiple falls, smoking, hypertension, hyperlipidemia, neuropathy to lower extremities, on 3 L O2 at home, history of recurrent syncopal episodes, history of blacking out, lives at home by herself. Patient uses a walker at baseline before fall. pt is unaware how she fell yesterday but states she woke up on the floor in her house and then called her family as She was complaining of Right hip pain and was brought to the ED for evaluation. CT of pelvis showed Comminuted mildly displaced right inferior pubic ramus fracture. Pt is not on any blood thinners, but states she takes a daily baby aspirin. Review of Systems General: Reports: 10 or more systems reviewed and unremarkable except in HPI and below Const: Denies: fever(s) or chills Card: Denies: chest pain Resp: Denies: dyspnea GI: Denies: nausea or vomiting : Denies: dysuria Musc: Reports: back pain and extremity pain (right hip pain) Medications/Allergies Home Medications Medication Instructions Recorded Confirmed Last Taken Type albuterol sulfate 90 mcg/actuation 2 puff inhalation Q4H PRN 07/07/20 07/20/23 07/19/23 History aerosol inhaler (Ventolin HFA) Shortness Of Breath aspirin 81 mg tablet,delayed 81 mg PO DAILY 07/07/20 07/20/23 07/19/23 08:00 History release (Ami Low Dose Aspirin) atorvastatin 20 mg tablet 20 mg PO BEDTIME 07/07/20 07/20/23 07/18/23 21:00 History duloxetine 60 mg capsule,delayed 120 mg PO QAM 07/07/20 07/20/23 07/19/23 08:00 History release hydrocodone 5 mg-acetaminophen 325 1 tab PO BID PRN Pain 07/07/20 07/20/23 07/19/23 History mg tablet lisinopril 20 mg tablet 20 mg PO DAILY 07/07/20 07/20/23 07/19/23 08:00 History mwchwafh-uft-aqxt-FA-Ca carb-vit K 1 tab PO DAILY 07/07/20 07/20/23 07/19/23 08:00 History 18 mg iron-400 mcg-500 mg tablet (One-A-Day Womens Formula) ascorbic acid (vitamin C) 500 mg 500 mg PO BEDTIME 01/29/22 07/20/23 07/17/23 21:00 History tablet (Vitamin C) alprazolam 1 mg tablet 1 mg PO TID PRN Anxiety 09/06/22 07/20/23 07/19/23 History quetiapine 100 mg tablet 100 mg PO BEDTIME 09/06/22 07/20/23 07/18/23 21:00 History quetiapine 25 mg tablet 25 mg PO QAM 09/06/22 07/20/23 07/19/23 08:00 History ipratropium 0.5 mg-albuterol 3 mg 3 ml inhalation Q6H PRN shortness 02/15/23 07/20/23 07/19/23 08:00 Rx (2.5 mg base)/3 mL nebulization of breath or wheezing #180 mL soln glycopyrrolate 9 mcg-formoterol 2 puff inhalation BID #10.7 grams 03/21/23 07/20/23 07/18/23 Rx 4.8 mcg HFA aerosol inhaler (Bevespi Aerosphere) quetiapine 25 mg tablet (Seroquel) 50 mg PO QNOON 07/20/23 07/20/23 Unknown History Allergies Allergy/AdvReac Type Severity Reaction Status Date / Time codeine Allergy Unknown Verified 07/19/23 19:21 Penicillins Allergy Unknown Verified 07/19/23 19:21 Current Medications Generic Name Dose Route Start Last Admin Trade Name Apq PRN Reason Stop Dose Admin Aspirin 81 mg 07/20/23 09:00 07/20/23 12:48 Aspirin 81 Mg Ec Tablet PO 81 mg DAILY JAYCEE Administration Duloxetine HCl 120 mg 07/20/23 06:00 07/20/23 06:23 Duloxetine 60 Mg Capsule PO 120 mg QAM JAYCEE Administration Enoxaparin Sodium 40 mg 07/20/23 00:33 07/20/23 01:02 Enoxaparin 40 Mg/0.4 Ml Syringe SUBCUT 40 mg Q24H JAYCEE Administration Ciprofloxacin/Dextrose 400 mg in 200 mls @ 200 mls/hr 07/20/23 00:33 07/20/23 02:04 Cipro IV Infused Q12H JAYCEE Infusion Protocol Sodium Chloride 1,000 mls @ 75 mls/hr 07/20/23 00:33 07/20/23 00:56 Sodium Chloride 0.9% IV 75 mls/hr .[id number] JAYCEE Administration Lisinopril 20 mg 07/20/23 09:00 07/20/23 12:48 Lisinopril 20 Mg Tablet PO 20 mg DAILY JAYCEE Administration Pantoprazole Sodium 40 mg 07/20/23 00:33 07/20/23 01:05 Pantoprazole 40 Mg Sdv IVP 40 mg Q24H JAYCEE Administration Quetiapine Fumarate 25 mg 07/20/23 06:00 07/20/23 06:23 Quetiapine 25 Mg Tablet PO 25 mg QAM JAYCEE Administration PFSH Acute PFSH: Medical History CKD (chronic kidney disease) COPD with acute bronchitis Hyperlipidemia Hypertension Smoking addiction Surgical History H/O: hysterectomy Hx of cholecystectomy Family History Other Raynaud's disease Social History Smoking and tobacco status: former smoker Quit status (tobacco): has quit using tobacco Year quit tobacco: August 2022 Former quit date comment: 1-1.5ppd x 53 years Alcohol intake: never Substance/Drug Use: never Lives independently: Yes Household members: none Additional social history: Daughter is her DPOA Vitals/I&O/Wt Last Vital Signs Temp 97.8 F 07/20/23 12:00 Pulse 87 07/20/23 12:00 Resp 17 07/20/23 12:00 BP 125/80 07/20/23 12:00 Pulse Ox 96 07/20/23 12:00 O2 Del Method Nasal Cannula 07/20/23 03:55 O2 Flow Rate 2 07/20/23 00:01 07/19/23 07/20/23 07/20/23 22:59 06:59 14:59 Intake Total 1200 / 1200 240 / 240 Output Total 0 / 0 Balance 1200 / 1200 240 / 240 Weight last 48 hrs Weight 160 lb Physical Exam Const: COMMON NORMALS: alert GENERAL APPEARANCE: cooperative HENMT: COMMON NORMALS: atraumatic HEAD & SCALP: atraumatic Resp: COMMON NORMALS: normal respiratory effort EFFORT & INSPECTION: No respiratory distress Extremity: NARRATIVE EXTREMITY EXAM: Right leg?no visible deformity or trauma seen. Pedal pulse 2+ toes are warm and well-perfused. Patient can wiggle toes. Patient can dorsiflex, plantarflex and can perform straight leg raise, but endorses pain in right hip/pelvis with motion. decreased sensation to foot. Secondary assessment of other extremities below upper extremities bilaterally?radial pulse 2+. No visible deformities or trauma seen. Shoulders nontender to palpation, good active range of motion. Left leg?no visible deformity or trauma seen. Pedal pulse 2+ toes are warm and well-perfused. Patient can wiggle toes. Patient can dorsiflex, plantarflex and can perform straight leg raise. Decreased sensation to foot. Neuro: SENSORIUM/ORIENTATION: Yes alert Skin: GENERAL SKIN EXAM: dry skin Data 07/19/23 19:48 07/19/23 19:48 Micro: Microbiology 07/19/23 20:32 Urine Culture - Preliminary Urine,Clean Catch Gram Negative Rods A&P Assessment and plan (1) Closed fracture of right inferior pubic ramus: Plan Plan: -Hospitalist on for medical management -Labs and imaging reviewed -VTE prophylaxis per Hospitalist while admitted -Weightbearing as tolerated -PT/OT for ambulating and ADL's This is a nonoperative fracture of pelvis and we will be signing off care of pt and we can follow peripherally as needed. 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 Patient uses a walker at baseline before fall. pt is unaware how she fell yesterday but states she woke up on the floor in her house and then called her family as She was complaining of Right hip pain and was brought to the ED for evaluation. CT of pelvis showed Comminuted mildly displaced right inferior pubic ramus fracture. Pt is not on any blood thinners, but states she takes a daily baby aspirin. pt was able to walk but noted pain to right hip Medications/Allergies Home Medications Medication Instructions Recorded Confirmed Last Taken Type albuterol sulfate 90 mcg/actuation 2 puff inhalation Q4H PRN 07/07/20 07/20/23 07/19/23 History aerosol inhaler (Ventolin HFA) Shortness Of Breath aspirin 81 mg tablet,delayed 81 mg PO DAILY 07/07/20 07/20/23 07/19/23 08:00 History release (Ami Low Dose Aspirin) atorvastatin 20 mg tablet 20 mg PO BEDTIME 07/07/20 07/20/23 07/18/23 21:00 History duloxetine 60 mg capsule,delayed 120 mg PO QAM 07/07/20 07/20/23 07/19/23 08:00 History release hydrocodone 5 mg-acetaminophen 325 1 tab PO BID PRN Pain 07/07/20 07/20/23 07/19/23 History mg tablet lisinopril 20 mg tablet 20 mg PO DAILY 07/07/20 07/20/23 07/19/23 08:00 History ptvwbnwi-bha-ydvh-FA-Ca carb-vit K 1 tab PO DAILY 07/07/20 07/20/23 07/19/23 08:00 History 18 mg iron-400 mcg-500 mg tablet (One-A-Day Womens Formula) ascorbic acid (vitamin C) 500 mg 500 mg PO BEDTIME 01/29/22 07/20/23 07/17/23 21:00 History tablet (Vitamin C) alprazolam 1 mg tablet 1 mg PO TID PRN Anxiety 09/06/22 07/20/23 07/19/23 History quetiapine 100 mg tablet 100 mg PO BEDTIME 09/06/22 07/20/23 07/18/23 21:00 History quetiapine 25 mg tablet 25 mg PO QAM 09/06/22 07/20/23 07/19/23 08:00 History ipratropium 0.5 mg-albuterol 3 mg 3 ml inhalation Q6H PRN shortness 02/15/23 07/20/23 07/19/23 08:00 Rx (2.5 mg base)/3 mL nebulization of breath or wheezing #180 mL soln glycopyrrolate 9 mcg-formoterol 2 puff inhalation BID #10.7 grams 03/21/23 07/20/23 07/18/23 Rx 4.8 mcg HFA aerosol inhaler (Bevespi Aerosphere) quetiapine 25 mg tablet (Seroquel) 50 mg PO QNOON 07/20/23 07/20/23 Unknown History Allergies Allergy/AdvReac Type Severity Reaction Status Date / Time codeine Allergy Unknown Verified 07/19/23 19:21 Penicillins Allergy Unknown Verified 07/19/23 19:21 PFSH Acute PFSH: Medical History CKD (chronic kidney disease) COPD with acute bronchitis Hyperlipidemia Hypertension Smoking addiction Surgical History H/O: hysterectomy Hx of cholecystectomy Family History Other Raynaud's disease Social History Smoking and tobacco status: former smoker Quit status (tobacco): has quit using tobacco Year quit tobacco: August 2022 Former quit date comment: 1-1.5ppd x 53 years Alcohol intake: never Substance/Drug Use: never Lives independently: Yes Household members: none Additional social history: Daughter is her DPOA Physical Exam Extremity: NARRATIVE EXTREMITY EXAM: Right leg?no visible deformity or trauma seen. Pedal pulse 2+ toes are warm and well-perfused. Patient can wiggle toes. Patient can dorsiflex, plantarflex and can perform straight leg raise, but endorses pain in right hip/pelvis with motion. Negative logroll. Patient has tenderness to palpation of the pubic rami. No tenderness to palpation of the hip/groin with no pain with leg range of motion. decreased sensation to foot bilaterally secondary to patient's neuropathy. Secondary assessment of other extremities below upper extremities bilaterally?radial pulse 2+. No visible deformities or trauma seen. Shoulders nontender to palpation, good active range of motion. Left leg?no visible deformity or trauma seen. Pedal pulse 2+ toes are warm and well-perfused. Patient can wiggle toes. Patient can dorsiflex, plantarflex and can perform straight leg raise. Decreased sensation to foot. Data 07/19/23 19:48 07/19/23 19:48 A&P Assessment and plan (1) Closed fracture of right inferior pubic ramus: Plan Plan: -Hospitalist on for medical management -Labs and imaging reviewed-we will obtain x-rays of the pelvis while in the hospital for monitoring In the outpatient clinic. -VTE prophylaxis per Hospitalist while admitted -Weightbearing as tolerated -PT/OT for ambulating and ADL's This is a nonoperative fracture of pelvis and we will be signing off care of pt and we can follow peripherally as needed. Recommendations- -Send pt home with aspirin 325 mg twice daily for 35 days for blood clot prevention -Supplement with Citracal/vitamin D for bone health and healing -Physical therapy after DC -Follow up at Ortho clinic in 2 weeks Coding Level of Care Code Acute Code for Chg Fwd Diagnoses Closed fracture of right inferior pubic ramus S32.591A
--- NOTE | 2023-07-20 15:15 | XRR_ITS ---
PROCEDURE INFORMATION: Exam: XR Pelvis Exam date and time: 07/20/2023 3:29 PM Age: 73 years old Clinical indication: Injury or trauma; Injury details: Known RT rami FX after fall yesterday; Increased pain today TECHNIQUE: Imaging protocol: Radiologic exam of the pelvis. Views: 1 or 2 view. COMPARISON: CT bony pelvis [id number] 07/19/2023 8:12 PM FINDINGS: Bones/joints: There is a comminuted fracture of the right inferior pubic ramus. No additional acute fracture. No dislocation. Mild degenerative changes are noted in the hip joints. Probable calcium hydroxyapatite deposition is noted adjacent to the left greater trochanter. Soft tissues: Unremarkable. XR/XR pelvis min 3V [id number] IMPRESSION: 1. There is a comminuted fracture of the right inferior pubic ramus. This is unchanged compared to the CT scan of the prior day. 2. No additional acute bony abnormality.
[2023-07-20] MEDS: morphine 4 mg/mL SDV 1 mL 2 MG IVP (15:21)
--- NOTE | 2023-07-20 17:14 | PM.PN ---
Subjective Subjective: overnight labs and H&P reveiwed. Patient answers all questions correctly , she is AAO x 3 however tangential in conversations, strays off course multiple times. Medications: Reviewed: Yes Vitals/I&O/Wt Last Vital Signs Temp 97.8 F 07/20/23 16:00 Pulse 76 07/20/23 16:00 Resp 17 07/20/23 16:00 BP 132/82 07/20/23 16:00 Pulse Ox 95 07/20/23 16:00 O2 Del Method Nasal Cannula 07/20/23 03:55 O2 Flow Rate 2 07/20/23 00:01 07/20/23 07/20/23 07/20/23 06:59 14:59 22:59 Intake Total 1200 / 1200 1240 / 1240 Output Total 0 / 0 Balance 1200 / 1200 1240 / 1240 Weight last 48 hrs Weight 72.575 kg Physical Exam Narrative: General: No acute distress, AO x3, but tangential in conversation HEENT: PERRLA, pupils bilaterally equal and reactive, pallors not present Chest: Normal vesicular breath sounds, no added sounds, equal good air entry bilaterally CVS: S1-S2 regular, no murmurs, no tachycardia, no gallops, no rubs Abdomen: Soft, nontender, no organomegaly, bowel sounds present Neuro: No focal deficits, no facial deformity, AO x3, power 5/5 in all limbs Data 07/19/23 19:48 07/19/23 19:48 Micro: Microbiology 07/19/23 20:32 Urine Culture - Preliminary Urine,Clean Catch Gram Negative Rods A&P Assessment and plan (1) Closed fracture of right inferior pubic ramus: (2) Hyperlipidemia: (3) Hypertension: (4) COPD with acute bronchitis: (5) Syncope: (6) Falls frequently: Plan # Recurrent syncopal episodes - unclear cause currently -Patient has recurrent episodes of blacking out, most recent hospitalization was 09/06/2022 -Has had recurrent episodes of falls -CT of the head no acute findings -Carotid Doppler 11/16/2022, bilateral ICA stenosis less than 50% -normal orthostatic vitals -Serial troponins 18--> 18.65 ---> 19.73 - Telemetry monitoring without any acute events - Echo with Normal LV function.? No significant valvular disease within ?study limitation. -Neurochecks, aspiration precautions, night stroke scale # Urinary tract infection, Rocephin as ampiric treatment GNR on urine cx check blood cx # Theodore Cr at 1.6 Hold lisinopril for now D/c IVF, developing hypervolemia # COPD, on chronic home 02 Duoneb scheduled nebulization every 6 hrs # Pubic rami fracture, pain control, PT OT, orthopedic service has been consulted Scalp hematoma, monitor Attestations Medical Necessity Statement*: continued need for iv abx, pain control, monitor mental status Coding Level of Care Code Acute Code for Chg Fwd Diagnoses Closed fracture of right inferior pubic ramus S32.591A Hyperlipidemia E78.5 Hypertension I10 COPD with acute bronchitis J44.0; J20.9 Syncope R55 Falls frequently R29.6
[2023-07-20] MEDS: cefTRIAXone 1,000 MG in sodium chloride 0.9% (plus) 50 ML 100 MG IV (17:53)
[2023-07-20] MEDS: ipratropium-albuterol 3 mL Neb INHALATION (19:58)
[2023-07-20] MEDS: quetiapine 100 mg Tablet PO (20:00)
[2023-07-20] MEDS: atorvastatin 40 mg Tablet 20 MG PO (20:00)
[2023-07-21] VITALS (16 sets, daily range): BP systolic 105–139; BP diastolic 71–79; PULSE 71–92; RESP 15–18; TEMP 36.2–36.7; O2SAT 93–97
[2023-07-21] MEDS: enoxaparin 30 mg/0.3 mL Syringe SUBCUT (00:40)
[2023-07-21 05:47] LABS: Basophils # 0.1 10^3/uL (0.0-0.1); Basophils % 0.8 %; Eosinophils # 0.3 10^3/uL (0.0-0.8); Eosinophils % 4.1 %; Hematocrit 32.2 % (36-47); Lymphocytes # 1.6 10^3/uL (0.8-4.8); Lymphocytes % 24.4 %; Mean Corpuscular HGB Conc 31.7 g/dL (30-55); Mean Corpuscular Hemoglobin 30.5 pg (27-33); Mean Corpuscular Volume 96.4 fl (85-98); Mean Platelet Volume 9.5 fL (7.4-10.4); Monocytes # 0.6 10^3/uL (0.2-0.9); Monocytes % 8.9 %; Neutrophils % 61.5 %; Nucleated Red Blood Cells % 0 %; Platelet Count 173 10^3/cmm (157-399); Red Blood Count 3.34 10^6/uL (3.85-5.65); Red Cell Distribution Width 12.1 % (12.1-15.1); White Blood Count 6.65 10^3/uL (3.29-11.43)
[2023-07-21] MEDS: quetiapine 25 mg Tablet PO (06:00)
[2023-07-21] MEDS: duloxetine 60 mg Capsule 120 MG PO (06:00)
[2023-07-21] MEDS: TRAMadol 50 mg Tablet PO ×2 (06:02→13:48)
[2023-07-21 06:13] LABS: Alanine Aminotransferase 10 U/L (0-33); Albumin Level 3.8 g/dL (3.5-5.2); Alkaline Phosphatase 82 U/L (35-105); Anion Gap 12.5 (5-19); Aspartate Amino Transferase 16 U/L (0-32); Blood Urea Nitrogen 18 mg/dL (8-23); Calcium 8.9 mg/dL (8.5-10.5); Carbon Dioxide 25 mmol/L (22-29); Chloride 106 mmol/L (98-107); Glucose 98 mg/dL (65-115); Osmolality Calculated 290 mOsm/kg (285-295); Potassium 4.5 mmol/L (3.5-5.1); Sodium 139 mmol/L (136-145); Total Bilirubin 0.4 mg/dL (0.15-1.2); Total Protein 5.8 g/dL (6.6-8.7)
[2023-07-21] MEDS: oxyCODONE 5 mg IR Tab/Cap PO ×2 (08:16→21:16)
[2023-07-21] MEDS: aspirin 81 mg EC Tablet PO (08:17)
[2023-07-21] MEDS: pantoprazole DR 40 mg Tablet PO (08:17)
[2023-07-21] MEDS: ipratropium-albuterol 3 mL Neb INHALATION ×3 (08:21→19:51)
--- NOTE | 2023-07-21 16:51 | PM.PN ---
Subjective Subjective: Awake and alert much more conversant compared to yesterday. No new complaints. States pain is better controlled. Worked with physical therapy today. Medications: Reviewed: Yes Vitals/I&O/Wt Last Vital Signs Temp 97.6 F 07/21/23 15:34 Pulse 84 07/21/23 15:34 Resp 16 07/21/23 15:34 BP 127/77 07/21/23 15:34 Pulse Ox 93 07/21/23 15:34 O2 Del Method Nasal Cannula 07/21/23 15:34 O2 Flow Rate 2 07/21/23 13:35 07/21/23 07/21/23 07/21/23 06:59 14:59 22:59 Intake Total 240 / 240 Balance 240 / 240 Weight last 48 hrs Weight 72.575 kg Physical Exam Narrative: General: No acute distress, AO x3, more alert today HEENT: PERRLA, pupils bilaterally equal and reactive, pallors not present Chest: Normal vesicular breath sounds, no added sounds, equal good air entry bilaterally CVS: S1-S2 regular, no murmurs, no tachycardia, no gallops, no rubs Abdomen: Soft, nontender, no organomegaly, bowel sounds present Neuro: No focal deficits, no facial deformity, AO x3, power 5/5 in all limbs Data 07/21/23 05:20 07/21/23 05:20 Micro: Microbiology 07/19/23 20:32 Urine Culture - Final Urine,Clean Catch Escherichia coli M.I.C. RX --------- ------ * Amikacin <=16 S * Amoxicillin/Clavulanate <=8/4 S * Ampicillin <=8 S * Ampicillin/Sulbactam <=8/4 S * Aztreonam <=4 S * Cefepime <=8 S * Ceftriaxone <=1 S * Cefuroxime <=4 S * Ciprofloxacin <=1 S * Gentamicin <=2 S * Imipenem <=1 S * Levofloxacin <=2 S * Nitrofurantoin <=32 S * Tetracycline <=4 S * Trimethoprim/Sulfamethoxazole <=2/38 S * Piperacillin/Tazobactam <=16 S 07/21/23 05:20 Blood Culture - Preliminary Blood SPECIMEN COLLECTED 07/21/23 05:13 Blood Culture - Preliminary Blood SPECIMEN COLLECTED NAME: Fany Moctezuma LOC: [facility] U #: [id number] AGE/SX: 73/F ROOM: 270 RE07/19/[address]: Gretchen Turcios MD : 1950 BED: 1 DIS: FAX #: STATUS: ADM IN TLOC: Spec #: [id number] Maritza: 07/21/23 Status: RES Req #: [id number] Recd: 07/21/[address]: Gretchen Turcios MD Src: Blood SpDesc: Ordered: Bcult Procedure Result Verified Site Blood Culture Preliminary 07/21/23 SPECIMEN COLLECTED A&P Assessment and plan (1) Closed fracture of right inferior pubic ramus: (2) Hyperlipidemia: (3) Hypertension: (4) COPD with acute bronchitis: (5) Syncope: (6) Falls frequently: Plan # Recurrent syncopal episodes - unclear cause currently -Patient has recurrent episodes of blacking out, most recent hospitalization was 09/06/2022 -Has had recurrent episodes of falls -CT of the head no acute findings -Carotid Doppler 11/16/2022, bilateral ICA stenosis less than 50% -normal orthostatic vitals -Serial troponins 18--> 18.65 ---> 19.73 - Telemetry monitoring without any acute events - Echo with Normal LV function.? No significant valvular disease within ?study limitation. -No events on limited telemetry monitoring here. May benefit from Holter monitor at the time of discharge to evaluate for any underlying arrhythmias which may be a cause of her recurrent symptoms. # Urinary tract infection, Plan susceptible E. coli on urine cx Continue ceftriaxone 1 g IV daily Negative blood cx thus far # Theodore Cr at 1.6 improving to 1.4 today, Continue to hold lisinopril for now # COPD, on chronic home 02 Duoneb scheduled nebulization every 6 hrs # Pubic rami fracture, pain control, PT OT, orthopedic service has been consulted Scalp hematoma, monitor DVT prophylaxis: Lovenox 40 mg daily Disposition: Would benefit from ongoing skilled therapy. Patient lives alone by herself and at risk of significant falls. Appropriate disposition planning ongoing Attestations Medical Necessity Statement*: Ongoing appropriate disposition planning Coding Level of Care Code Acute Code for Chg Fwd Diagnoses Closed fracture of right inferior pubic ramus S32.591A Hyperlipidemia E78.5 Hypertension I10 COPD with acute bronchitis J44.0; J20.9 Syncope R55 Falls frequently R29.6
[2023-07-21] MEDS: cefTRIAXone 1,000 MG in sodium chloride 0.9% (plus) 50 ML 100 MG IV (17:06)
[2023-07-21] MEDS: quetiapine 100 mg Tablet PO (21:13)
[2023-07-21] MEDS: atorvastatin 40 mg Tablet 20 MG PO (21:13)
[2023-07-21] MEDS: enoxaparin 40 mg/0.4 mL Syringe SUBCUT (23:48)
[2023-07-22] VITALS (16 sets, daily range): BP systolic 94–136; BP diastolic 61–82; PULSE 67–96; RESP 14–18; TEMP 36.3–36.7; O2SAT 91–96
[2023-07-22] MEDS: ipratropium-albuterol 3 mL Neb INHALATION ×4 (02:24→19:38)
[2023-07-22 05:14] LABS: Basophils % 0.5 %; Eosinophils # 0.1 10^3/uL (0.0-0.8); Eosinophils % 2.3 %; Hematocrit 31.8 % (36-47); Lymphocytes # 1.6 10^3/uL (0.8-4.8); Lymphocytes % 25.6 %; Mean Corpuscular HGB Conc 31.8 g/dL (30-55); Mean Corpuscular Hemoglobin 30.7 pg (27-33); Mean Corpuscular Volume 96.7 fl (85-98); Mean Platelet Volume 9.1 fL (7.4-10.4); Monocytes # 0.5 10^3/uL (0.2-0.9); Monocytes % 8.8 %; Neutrophils # 3.77 10^3/uL (1.8-7.7); Neutrophils % 62.3 %; Nucleated Red Blood Cells % 0 %; Platelet Count 167 10^3/cmm (157-399); Red Blood Count 3.29 10^6/uL (3.85-5.65); Red Cell Distribution Width 12.1 % (12.1-15.1); White Blood Count 6.05 10^3/uL (3.29-11.43)
[2023-07-22 05:44] LABS: Alanine Aminotransferase 9 U/L (0-33); Albumin Level 3.9 g/dL (3.5-5.2); Alkaline Phosphatase 83 U/L (35-105); Anion Gap 13.4 (5-19); Aspartate Amino Transferase 15 U/L (0-32); Blood Urea Nitrogen 19 mg/dL (8-23); Calcium 9.3 mg/dL (8.5-10.5); Carbon Dioxide 28 mmol/L (22-29); Chloride 103 mmol/L (98-107); Globulin 2.5 g/dL (1.3-4.6); Glucose 91 mg/dL (65-115); Osmolality Calculated 292 mOsm/kg (285-295); Potassium 4.4 mmol/L (3.5-5.1); Sodium 140 mmol/L (136-145); Total Bilirubin 0.5 mg/dL (0.15-1.2); Total Protein 6.4 g/dL (6.6-8.7)
[2023-07-22] MEDS: duloxetine 60 mg Capsule 120 MG PO (06:06)
[2023-07-22] MEDS: quetiapine 25 mg Tablet PO (06:07)
[2023-07-22] MEDS: oxyCODONE 5 mg IR Tab/Cap PO (06:07)
[2023-07-22] MEDS: aspirin 81 mg EC Tablet PO (08:44)
[2023-07-22] MEDS: pantoprazole DR 40 mg Tablet PO (08:44)
--- NOTE | 2023-07-22 11:00 | PM.PN ---
Subjective Subjective: Patient endorses pelvic pain. Denies fevers, chills, nausea or emesis. Mentation has improved. Discussed need for probable postacute care and she is agreeable. Medications: Reviewed: Yes Vitals/I&O/Wt Last Vital Signs Temp 97.6 F 07/22/23 07:44 Pulse 87 07/22/23 08:25 Resp 16 07/22/23 08:25 BP 106/69 07/22/23 07:44 Pulse Ox 93 07/22/23 08:25 O2 Del Method Nasal Cannula 07/22/23 08:25 O2 Flow Rate 2 07/22/23 08:25 07/21/23 07/22/23 07/22/23 22:59 06:59 14:59 Intake Total 290 / 530 240 / 240 Output Total 300 / 300 Balance -10 240 / 240 Physical Exam Narrative: General: Patient is awake and alert. Sitting in bedside chair. Very pleasant. Head: Normocephalic. Atraumatic. EOM intact. Neck: No JVD. Cardiovascular: RRR. No gallops. No murmurs. Lungs: Clear to auscultation, no use of accessory muscles, no crackles or wheezes. Skin: No jaundice. No rashes. Abdomen: Normal bowel sounds, abdomen soft and nontender. Extremities: No cyanosis or clubbing. Musculoskeletal: No erythematous joints. Neurological: Moves all 4 extremities. No myoclonus. Data 07/22/23 04:41 07/22/23 04:41 Micro: Microbiology 07/21/23 05:20 Blood Culture - Preliminary Blood NEGATIVE TO DATE 07/21/23 05:13 Blood Culture - Preliminary Blood NEGATIVE TO DATE 07/19/23 20:32 Urine Culture - Final Urine,Clean Catch Escherichia coli A&P Assessment and plan (1) Closed fracture of right inferior pubic ramus: Continue therapy Analgesics as needed, wean off IV analgesics as tolerated Will likely need postacute care while healing (2) UTI (urinary tract infection): Urine culture with pansensitive E. coli Continue ceftriaxone (3) Syncope: History of recurrent syncopal episodes Fall precautions Therapy Telemetry monitoring Prior imaging reviewed May benefit from outpatient Holter/event monitoring (4) JAMES (acute kidney injury): JAMES versus CKD Creatinine 1.5 Continue to monitor Avoid nephrotoxins (5) Falls frequently: On home Xanax, associated with falls Fall precautions Therapy (6) Hypertension: Home lisinopril is on hold Blood pressure is soft Continue to monitor (7) COPD (chronic obstructive pulmonary disease): Not in acute exacerbation Continue to monitor Breathing treatments as needed (8) Hyperlipidemia: Continue Lipitor Plan DVT prophylaxis: Lovenox CODE STATUS: DNR Attestations Medical Necessity Statement*: Patient requires ongoing hospitalization for therapy, IV antibiotics, IV analgesics, and supportive care. Coding Level of Care Code Acute Code for Chg Fwd Diagnoses Closed fracture of right inferior pubic ramus S32.591A UTI (urinary tract infection) N39.0 Syncope R55 JAMES (acute kidney injury) N17.9 Falls frequently R29.6 Hypertension I10 COPD (chronic obstructive pulmonary disease) J44.9 Hyperlipidemia E78.5
[2023-07-22] MEDS: acetaminophen 325 mg Tablet 1000 MG PO (15:39)
[2023-07-22] MEDS: TRAMadol 50 mg Tablet PO (20:04)
[2023-07-22] MEDS: acetaminophen 500 mg Tablet 1000 MG PO (20:04)
[2023-07-22] MEDS: atorvastatin 40 mg Tablet 20 MG PO (20:04)
[2023-07-22] MEDS: sennosides 8.6 mg Tablet 17.2 MG PO (20:04)
[2023-07-22] MEDS: quetiapine 100 mg Tablet PO (20:05)
[2023-07-23] VITALS (8 sets, daily range): BP systolic 94–138; BP diastolic 63–97; PULSE 79–106; RESP 15–18; TEMP 36.4–36.8; O2SAT 91–94
[2023-07-23] MEDS: TRAMadol 50 mg Tablet PO (03:00)
[2023-07-23] MEDS: duloxetine 60 mg Capsule 120 MG PO (05:40)
[2023-07-23] MEDS: quetiapine 25 mg Tablet PO (05:40)
[2023-07-23] MEDS: acetaminophen 500 mg Tablet 1000 MG PO ×2 (05:40→13:48)
[2023-07-23] MEDS: ipratropium-albuterol 3 mL Neb INHALATION (07:11)
[2023-07-23] MEDS: pantoprazole DR 40 mg Tablet PO (08:48)
[2023-07-23] MEDS: aspirin 81 mg EC Tablet PO (08:48)
[2023-07-23] MEDS: cefdinir 300 MG CAPSULE PO (08:48)
[2023-07-23] MEDS: enoxaparin 30 mg/0.3 mL Syringe SUBCUT (08:49)
--- NOTE | 2023-07-23 09:39 | P.DS_ITS ---
Discharge Providers Date of Admission: 07/19/23 22:30 Date of Discharge: July 23, 2023 Attending Provider at Admission: Mike Figueroa MD Attending Provider at Discharge: Huey Guerrero MD Consults: Orthopedic surgery Primary Care Provider: Sushant Ogden DO Diagnoses at Discharge Discharge Diagnosis (1) Closed fracture of right inferior pubic ramus: Status: Acute (2) UTI (urinary tract infection): Status: Acute (3) Syncope: Status: Acute (4) JAMES (acute kidney injury): Status: Acute (5) Falls frequently: Status: Acute (6) Hypertension: Status: Acute (7) COPD (chronic obstructive pulmonary disease): Status: Acute (8) Hyperlipidemia: Status: Acute Reason for Visit Reason for Visit: FALL/R HIP PAIN Hospital Course Hospital Course Fany Moctezuma is a 73-year-old female with a past medical history significant for COPD with chronic hypoxic respiratory failure, recurrent syncope, recurrent falls, tobacco use disorder, hypertension, and hyperlipidemia who presents to the emergency department with altered mental status, syncope and mechanical fall. Work up revealed pubic rami fracture, scalp hematoma, and urinary tract infection with acute infectious encephalopathy. Orthopedics consulted and evaluated. Patient treated with IV antibiotics, analgesics, therapy and supportive care. Mentation returned to baseline. Pain improved. She was noted to have constipation, started on bowel regimen. There was initial concern for acute kidney injury however renal function showed little improvement with treatment consistent with suspected chronic kidney disease stage 3b-IV. Patient worked with therapy and accepted to SNF for further care. Patient discharged in stable condition. Physical Exam Narrative: General: Patient is awake. Head: Normocephalic. Atraumatic. EOM intact. Neck: No JVD. Cardiovascular: RRR. No gallops. No murmurs. N Lungs: Breath sounds are slightly diminished in bilateral bases, no use of accessory muscles, no crackles or wheezes. Skin: No jaundice. No rashes. Abdomen: Normal bowel sounds, abdomen soft and nontender. Extremities: No cyanosis or clubbing. Musculoskeletal: No erythematous joints. Neurological: No myoclonus. Discharge Data Studies Completed and Pending Completed Studies During Hospitalization Category Date Time Status CT cervical spin wo con* [id number] Stat Cat Scan 07/19/23 19:[address] head wo con* [id number] Stat Cat Scan 07/19/23 19:[address] pelvis wo bone [CT bony pelvis [id number]] Stat Cat Scan 07/19/23 19:37 Comp leted XR chest 1V portable [id number] Stat Exams 07/19/23 19:38 Completed XR pelvis min 3V [id number] Routine Exams 07/20/23 15:15 Completed CV. echo complete* [id number] Routine Ultrasound 07/20/23 00:33 Completed Pending at discharge Category Date Time Status Blood Culture AM LABS Lab 07/21/23 05:20 Results Radiology Impressions Cervical Spine CT 07/19/23 19:37 IMPRESSION: 1. No acute fracture of the cervical spine. 2. Mild subluxation of the right lateral C1 mass relative to the right C2 facet but with normal atlanto dens interval. This is favored related to patient positioning with head slightly turned to the right and/or degenerative sequela. MRI may be obtained to exclude acute ligamentous injury. Head CT 07/19/23 19:37 IMPRESSION: 1. Right lateral scalp hematoma without underlying calvarial fracture. 2. No acute intracranial hemorrhage. Pelvis CT 07/19/23 19:37 IMPRESSION: 1. Comminuted mildly displaced right inferior pubic ramus fracture. Chest X-Ray 07/19/23 19:38 IMPRESSION: No acute findings. Pelvis X-Ray 07/20/23 15:15 IMPRESSION: 1. There is a comminuted fracture of the right inferior pubic ramus. This is unchanged compared to the CT scan of the prior day. 2. No additional acute bony abnormality. Laboratory Results WBC 6.05 10^3/uL (3.29-11.43) 07/22/23 04:41 RBC 3.29 10^6/uL (3.85-5.65) L 07/22/23 04:41 Hgb 10.10 g/dL (11.27-16.99) L 07/22/23 04:41 Hct 31.8 % (36-47) L 07/22/23 04:41 MCV 96.7 fl (85-98) 07/22/23 04:41 MCH 30.7 pg (27-33) 07/22/23 04:41 MCHC 31.8 g/dL (30-55) 07/22/23 04:41 RDW 12.1 % (12.1-15.1) 07/22/23 04:41 Plt Count 167 10^3/cmm (157-399) 07/22/23 04:41 MPV 9.1 fL (7.4-10.4) 07/22/23 04:41 Neut % (Auto) 62.3 % 07/22/23 04:41 Lymph % (Auto) 25.6 % 07/22/23 04:41 [place] % (Auto) 8.8 % 07/22/23 04:41 Eos % (Auto) 2.3 % 07/22/23 04:41 Baso % (Auto) 0.5 % 07/22/23 04:41 Neut # (Auto) 3.77 10^3/uL (1.8-7.7) 07/22/23 04:41 Lymph # (Auto) 1.6 10^3/uL (0.8-4.8) 07/22/23 04:41 [place] # (Auto) 0.5 10^3/uL (0.2-0.9) 07/22/23 04:41 Eos # (Auto) 0.1 10^3/uL (0.0-0.8) 07/22/23 04:41 Baso # (Auto) 0.0 10^3/uL (0.0-0.1) 07/22/23 04:41 Nucleated RBC % (auto) 0 % 07/22/23 04:41 Nucleated RBCs # 0.0 /100WBC 07/22/23 04:41 Sodium 140 mmol/L (136-145) 07/22/23 04:41 Potassium 4.4 mmol/L (3.5-5.1) 07/22/23 04:41 Chloride 103 mmol/L (98-107) 07/22/23 04:41 Carbon Dioxide 28 mmol/L (22-29) 07/22/23 04:41 Anion Gap 13.4 (5-19) 07/22/23 04:41 BUN 19 mg/dL (8-23) 07/22/23 04:41 Creatinine 1.5 mg/dL (0.5-0.9) H 07/22/23 04:41 GFR Calculation Not Reportable 07/22/23 04:41 Glucose 91 mg/dL (65-115) 07/22/23 04:41 Estimat Average Glucose 128 07/20/23 01:12 Hemoglobin A1c 6.1 % (4.0-6.0) H 07/20/23 01:12 Calculated Osmolality 292 mOsm/kg (285-295) 07/22/23 04:41 Lactic Acid 1.1 mmol/L (0.5-2.2) 07/19/23 19:48 Calcium 9.3 mg/dL (8.5-10.5) 07/22/23 04:41 Magnesium 2.2 mg/dL (1.7-2.3) 07/19/23 19:48 Total Bilirubin 0.5 mg/dL (0.15-1.2) 07/22/23 04:41 AST 15 U/L (0-32) 07/22/23 04:41 ALT 9 U/L (0-33) 07/22/23 04:41 Alkaline Phosphatase 83 U/L (35-105) 07/22/23 04:41 Creatine Kinase 128 U/L (26-192) 07/19/23 19:48 Troponin T Baseline 18 ng/L (0-10) H 07/19/23 23:30 Troponin T 120 Minute 18.65 ng/L (0-10) H 07/20/23 01:33 Delta Troponin T 0.65 ABS# (0-10) 07/20/23 01:33 Troponin T Hi Sens 6Hr 19.73 ng/L (0-10) H 07/20/23 05:17 Troponin T Hi Sens 6Hr Delta 1.73 ng/L (0-12) 07/20/23 05:17 C-Reactive Protein 3.0 mg/L (0.0-4.9) 07/19/23 19:48 Total Protein 6.4 g/dL (6.6-8.7) L 07/22/23 04:41 Albumin 3.9 g/dL (3.5-5.2) 07/22/23 04:41 Globulin 2.5 g/dL (1.3-4.6) 07/22/23 04:41 Triglycerides 159 mg/dL (0-150) H 07/20/23 01:12 Cholesterol 153 mg/dL (0-200) 07/20/23 01:12 LDL Cholesterol, Calc 67 mg/dL (50-129) 07/20/23 01:12 HDL Cholesterol 54 mg/dL (60-100) L 07/20/23 01:12 LDL/HDL Ratio 1.24 RATIO (0.00-3.22) 07/20/23 01:12 Cholesterol/HDL Ratio 2.83 mg/dL (0.0-4.40) 07/20/23 01:12 TSH 2.78 uIU/mL (0.27-4.20) 07/20/23 01:12 Urine Color Yellow (Yellow) 07/19/23 20:32 Urine Appearance Clear (CLEAR) 07/19/23 20:32 Urine pH 5 (5-7) 07/19/23 20:32 Ur Specific [place] 1.020 (1.005-1.030) 07/19/23 20:32 Urine Protein Neg (Negative) 07/19/23 20:32 Urine Glucose (UA) Norm (Normal) 07/19/23 20:32 Urine Ketones Negative (Negative) 07/19/23 20:32 Urine Blood Neg (Negative) 07/19/23 20:32 Urine Nitrate Positive (Negative) H 07/19/23 20:32 Urine Bilirubin Neg (Negative) 07/19/23 20:32 Urine Urobilinogen Neg mg/dL (Negative) 07/19/23 20:32 Ur Leukocyte Esterase Trace (Negative) H 07/19/23 20:32 Urine RBC None /hpf (0-2) 07/19/23 20:32 Urine WBC Rare /hpf (0-5) 07/19/23 20:32 Ur Squamous Epith Cells Rare /hpf (0-5) 07/19/23 20:32 Amorphous Sediment Not Reportable 07/19/23 20:32 Urine Bacteria 2+ /hpf (NONE) H 07/19/23 20:32 Vitals Last Vital Signs Temp 97.6 F 07/23/23 07:09 Pulse 93 07/23/23 07:13 Resp 16 07/23/23 07:13 BP 113/79 07/23/23 07:09 Pulse Ox 94 07/23/23 07:13 O2 Del Method Nasal Cannula 07/23/23 07:13 O2 Flow Rate 2 07/23/23 08:00 Discharge Plan Discharge Patient Disposition: Home Condition: Stable Prescriptions: New tramadol 50 mg Tablet 50 mg PO Q6H PRN (Reason: Moderate Pain) 5 Days Qty: 15 0RF cefdinir 300 mg Capsule 300 mg PO BID 5 Days Qty: 10 0RF sennosides [senna] 8.6 mg Tablet 17.2 mg PO BID 30 Days Qty: 120 0RF Metamucil (with sugar) 3.4 gram Powder In Packet 1 packet PO DAILY 30 Days Qty: 30 0RF Continued ipratropium-albuterol 0.5 mg-3 mg(2.5 mg base)/3 mL solution for nebulization 3 ml inhalation Q6H PRN (Reason: shortness of breath or wheezing) Qty: 180 3RF Bevespi Aerosphere 9-4.8 mcg HFA aerosol inhaler 2 puff inhalation BID Qty: 10.7 5RF atorvastatin 20 mg tablet 20 mg PO BEDTIME hydrocodone-acetaminophen 5-325 mg tablet 1 tab PO BID PRN (Reason: Pain) lisinopril 20 mg tablet 20 mg PO DAILY aspirin [Ami Low Dose Aspirin] 81 mg Tablet,Delayed Release (Dr/Ec) 81 mg PO DAILY albuterol sulfate [Ventolin HFA] 90 mcg/actuation HFA aerosol inhaler 2 puff INHALATION Q4H PRN (Reason: Shortness Of Breath) duloxetine 60 mg capsule,delayed release(DR/EC) 120 mg PO QAM One-A-Day Womens Formula 18 mg iron-400 mcg-500 mg Tablet 1 tab PO DAILY ascorbic acid (vitamin C) [Vitamin C] 500 mg Tablet 500 mg PO BEDTIME alprazolam 1 mg tablet 1 mg PO TID PRN (Reason: Anxiety) quetiapine 25 mg tablet 25 mg PO QAM quetiapine 100 mg tablet 100 mg PO BEDTIME Seroquel 25 mg Tablet 50 mg PO QNOON Nicorette 4 mg Gum 4 mg BUCCAL Q2H Discharge Orders: Discharge Order (Routine); Ordered 07/23/23 Ordered By: Huey Guerrero Referrals: Sushant Ogden DO [Primary Care Provider] - 4-7 days Discharge Diet: Advance as tolerated and Cardiac Discharge Activity: Limit activity as instructed and As per PT/OT instructions Patient Instructions: Opioid Safety Activity Restrictions/Additional Instructions: 1. Increase activity as tolerated with assistance. 2. Take medications as prescribed. 3. Follow up with outpatient providers. Discharge Attestations Time Spent in Discharge Care*: greater than 30 min Status at Discharge: Cognitive status at discharge: cognitively intact , Behavioral status at discharge: cooperative , Overall status at discharge: patient is progressing back to baseline Quality Metrics Clinical Quality Measures [ No reported AMI, CVA or VTE this stay] Coding Level of Care Code Acute Code for Chg Fwd Diagnoses Closed fracture of right inferior pubic ramus S32.591A UTI (urinary tract infection) N39.0 Syncope R55 JAMES (acute kidney injury) N17.9 Falls frequently R29.6 Hypertension I10 COPD (chronic obstructive pulmonary disease) J44.9 Hyperlipidemia E78.5
--- NOTE | 2023-07-23 12:05 | CT_ITS ---
WS: [id number] CT HEAD NONCONTRAST HISTORY: ams TECHNIQUE: Contiguous axial imaging performed through the brain in 2.5 mm imaging. Bone and soft tiss ue windows. Sagittal and coronal reformats reviewed. All CT scans at [facility] use at least one of these dose optimization techniques: automated exposure control; mA and/or kV adjustment per pa tient size (includes targeted exams where dose is matched to clinical indication); or iterative recon struction. DLP: 1088.88 mGy.cm COMPARISON: 07/19/2023 No acute intracranial hemorrhage, midline shift or mass effect. Mild atrophy and small vessel ischemic disease. No interval change in appearance of the brain. Ventricles: Normal size with no hydrocephalus. Paranasal sinuses: As visualized are clear. Mastoid air cells: Well pneumatized. Calvarium and scalp: No skull fracture. Moderate improvement in the RIGHT lateral parietal scalp french salma since 07/19/2023. IMPRESSION: 1. Stable noncontrast head CT since 07/19/2023. No acute intracranial hemorrhage or edema. 2. Moderate improvement RIGHT lateral parietal scalp hematoma.
--- NOTE | 2023-07-23 12:16 | ECG_ITS ---
[facility] Test Date: 2023-07-23 Pat Name: Fany Moctezuma Department: Room: 270 Gender: Female Washer Hand: : 1950 Requested By: Huey Combs Order Number: [id number] Dove MD: Tanner Turner M.D. Measurements Intervals [place] Rate: 90 P: 79 VA: 144 QRS: 42 QRSD: 87 T: 68 QT: 361 QTc: 444 Interpretive Statements SINUS RHYTHM LOW QRS VOLTAGE IN PRECORDIAL LEADS [QRS DEFLECTION < 1.0 mV IN CHEST LEADS] Compared to ECG 07/20/2023 04:53:20 Ventricular premature complex(es) no longer present Electronically Signed On 07-23-2023 12:46:35 CDT by Tanner Turner M.D. [id number]
[2023-07-23] MEDS: ondansetron 2 mg/ML SDV 2 mL 4 MG IVP (12:21)
[2023-07-23] MEDS: LORazepam 2 mg/mL INJ 1 mL 0.5 MG IVP (12:40)
--- NOTE | 2023-07-23 13:00 | PC.NURSE ---
I was asked by patient's nurse to present to the room to assess her status. Aicha Parker RN stated that she had went to the room to round on patient and she was having hiccups and had a change in mental status. Patient is alert to person only but is having difficulty comprehending questions. Her graduate engineer are strong and only slightly weak on the right side. Pupils exhibit PERRLA. Patient is able to hold both hands out without drift and stick her tongue out without complications. She is unable to recall her but is able to verbalize that she is in [place] at hospital. Myself, Aicha Parker RN, and Becki Broussard RN are at bedside assessing patient. VS obtained and VSS at this time. Dr. Guerrero was called and he states he will be on the floor to assess patient momentarily. Upon review of history with patient's son, he states this isn't normal for her. Becki Broussard RN and I assisted in boosting patient in bed and she c/o pain in her left hip, which has been normal for her during this hospitalization. After sitting up for a couple of minutes, she started gagging and stating she was going to throw up. She vomited roughly 50 mL of green emesis and continues to c/o nausea. Dr. Guerrero at bedside at this time and provided a verbal order for EKG, CT to head to assess for further injury after fall sustained at home on 07/19, and orders for Zofran and PO Thorazine in an hour to treat the hiccups as long as nausea is controlled. Dr. Guerrero was at bedside for EKG, patient in NSR at this time. While discussing patient's condition at bedside with Dr. Guerrero, he verbalized concern for patient possibly having withdrawal from Xanax since her dose was decreased upon admission. He provided an order for IV Ativan one time dose in an effort to reduce sudden confusion and slight tremors. New IV started by Becki Broussard RN to right forearm and medications administered as ordered. Updated patient's family of new meds added and administered. They verbalize understanding and deny questions/concerns at this time. Called [facility] and updated them on patient's current status and monitoring patient's status for a couple of hours before final d/c decision is made. They verbalize understanding. Informed Swetha with CM as well.
[2023-07-23] MEDS: chlorPROMazine 25 mg Tablet PO (13:48)
== END 2023-07-23 15:16 | disposition short-term general hospital (02) | DRG 535 ==
LOC: ER 22:19 → MEDSURG 22:44
PROVIDERS: Student in an Organized Health Care Education/Training Program; Admitting Provider Family Medicine; Emergency Provider Emergency Medicine; PCP Internal Medicine; Visit Provider Internal Medicine
DX: S32.591A Other specified fracture of right pubis, initial encounter for closed fracture (principal); G93.41 Metabolic encephalopathy; N39.0 Urinary tract infection, site not specified; J44.0 Chronic obstructive pulmonary disease with (acute) lower respiratory infection; J96.11 Chronic respiratory failure with hypoxia; N17.9 Acute kidney failure, unspecified; B96.20 Unspecified Escherichia coli [E. coli] as the cause of diseases classified elsewhere; W18.30XA Fall on same level, unspecified, initial encounter; J20.9 Acute bronchitis, unspecified; Z87.891 Personal history of nicotine dependence; I12.9 Hypertensive chronic kidney disease with stage 1 through stage 4 chronic kidney disease, or unspecified chronic kidney disease; N18.32 Chronic kidney disease, stage 3b; E78.5 Hyperlipidemia, unspecified; Z79.891 Long term (current) use of opiate analgesic; Z79.82 Long term (current) use of aspirin; G62.9 Polyneuropathy, unspecified; F03.90 Unspecified dementia, unspecified severity, without behavioral disturbance, psychotic disturbance, mood disturbance, and anxiety; R55 Syncope and collapse
CPT/HCPCS: 36415; 70450; 71045; 72125; 72190; 72192; 80053; 80061; 81001; 82550; 83036; 83605; 83735; 84443; 84484; 85025; 86140; 87040; 87077; 87086; 87186; 93005; 93306; 94640; 94664; 96365; 96372; 97110; 97116; 97161; 97165; 97530; 97535; 99285; C9113; J0696; J0744; J1650; J2060; J2270; J2405; J7030; Q0161

== ENCOUNTER → 2023-09-26 12:35 | Outpatient (BNVA) | payer MEDICARE, MEDICAID, SELFPAY | PROVIDERS: PCP Internal Medicine; Visit Provider Internal Medicine Pulmonary Disease | DX: J43.2 Centrilobular emphysema (principal); F17.200 Nicotine dependence, unspecified, uncomplicated; R55 Syncope and collapse; M54.50 Low back pain, unspecified; Z12.2 Encounter for screening for malignant neoplasm of respiratory organs | CPT/HCPCS: 99214 ==

== ENCOUNTER 2023-12-03 19:10 | Emergency (ER) | payer MEDICARE, MEDICAID, SELFPAY ==
[2023-12-03 19:11] VITALS: BP 149/94; PULSE 79; RESP 18; TEMP 36.7; O2SAT 98; BMI 28.9
--- NOTE | 2023-12-03 19:11 | XRR_ITS ---
PROCEDURE INFORMATION: Exam: XR Left Shoulder Exam date and time: 12/03/2023 7:17 PM Age: 73 years old Clinical indication: Injury or trauma; Fall; Blunt trauma (contusions or hematomas); Shoulder; Left TECHNIQUE: Imaging protocol: Radiologic exam of the left shoulder. Views: 2 or more views. COMPARISON: CR XR chest 1V portable [id number] 07/19/2023 7:56 PM FINDINGS: Bones/joints: No fracture or malalignment. Mild degenerative changes. Soft tissues: No acute findings. XR/XR shoulder LT min 2V* [id number] IMPRESSION: No acute findings.
--- NOTE | 2023-12-03 19:17 | PC.NURSE ---
pt fell off couch onto left side. c/o left shoulder pain. left radial pulse 3+, ltd rom d/t pain, no deformity noted. sensation intact
--- NOTE | 2023-12-03 19:55 | W.ED.FALL ---
HPI - Fall General: Chief Complaint: Fall Stated Complaint: fall, shoulder pain Time Seen by Provider: 12/03/23 19:21 Source: patient Mode of arrival: EMS Limitations: no limitations History of Present Illness: 73yo female here via EMS for evaluation of left shoulder pain following a fall from her couch. Patient states she was taking a nap on the couch when her phone rang. States that she did not realize she was on the couch and fell as she was trying to get up. Patient states that she did land on her left shoulder. Reports that she does have increased pain with attempts at moving the shoulder. Patient denies hitting her head, loss consciousness, any other concern at this time. Associated symptoms-after fall: Denies neck pain Review of Systems Const: Denies: fever(s) or chills Musc: Reports: extremity pain (left shoulder/upper arm); Denies: neck pain or back pain PFS ED PFSH: Medical History Closed fracture of right inferior pubic ramus Encounter for screening for lung cancer Low back pain associated with a spinal disorder other than radiculopathy or spinal stenosis Exertional dyspnea COPD (chronic obstructive pulmonary disease) Smoking addiction CKD (chronic kidney disease) Syncope Falls frequently Hypoxia Hyperlipidemia Hypertension COPD with acute bronchitis Surgical History Hx of cholecystectomy H/O: hysterectomy Family History Other Raynaud's disease Social History Smoking and tobacco/nicotine status: former use of tobacco/nicotine Quit status (tobacco/nicotine): has quit using Year quit tobacco: August 2022 Former quit date comment: 1-1.5ppd x 53 years Alcohol intake: never Substance/Drug Use: never Additional social history: Daughter is her DPOA Lives independently: Yes Household members: none Physical Exam Const: COMMON NORMALS: no acute distress and alert GENERAL APPEARANCE: cooperative ORIENTATION/CONSCIOUSNESS: Yes awake OTHER: Patient is sitting reclined on the stretcher in no acute distress. She is noted to have a same splint in place on the left arm. She is on 3 L nasal cannula at her home oxygen dose. Family is at bedside HENMT: COMMON NORMALS: normocephalic HEAD & SCALP: normocephalic Neck/C-Spine: COMMON NORMALS: full ROM CERVICAL SPINE: No Cervical spine tenderness and Yes Trapezius muscle tenderness left Chest: CHEST: Yes Symmetrical chest wall rise Resp: COMMON NORMALS: normal respiratory effort OTHER: oxygen via NC Extremity: LEFT UPPER EXTREMITY: Yes shoulder joint Left shoulder joint: Yes palpation (tenderness to superior aspect) and Yes ROM (increased pain with any movement) OTHER: No tenderness to palpation to the left elbow, left forearm, left wrist, or hand. Radial pulse 2+, capillary refill less than 3 seconds Neuro: SENSORIUM/ORIENTATION: Yes alert Psych: COMMON NORMALS: cooperative ATTITUDE: Yes calm Course Vital Signs: Vital signs: Vital Signs Temperature 98.0 F 12/03/23 19:11 Pulse Rate 89 12/03/23 20:17 Respiratory Rate 20 H 12/03/23 20:17 Blood Pressure 171/84 12/03/23 20:17 Pulse Oximetry 96 12/03/23 20:17 Oxygen Delivery Me thod Nasal Cannula 12/03/23 20:17 Oxygen Flow Rate 3 12/03/23 20:17 MDM - Fall Medical Decision Making 73yo female here via EMS with family for evaluation of left shoulder pain following a fall from her couch that occurred at approximately 1800 this evening. Patient reported increased pain with any movement of the left shoulder. She denies hitting her head, loss conscious, neck pain, any other concerns at this time. Patient is nontoxic in appearance. Vital signs are stable. Differential diagnoses include: Dislocation, fracture, AC separation, sprain, strain No acute bony abnormalities noted on the x-ray. Discussed findings with patient and family. Advised this is likely a sprain of the shoulder. Sling provided by nursing and tizanidine prescribed. Advised to use a sling for the next couple of days to protect the shoulder from further injury. Recommend beginning working on range of motion exercises in 1 to 2 days. Advised to follow-up with primary care, call later this week with an update of symptoms and to discuss a recheck. Recommend return to the emergency department if any rapid worsening symptoms, further injury, and as needed. Patient and family state understanding and have no further questions or concerns at this time. Medical Records I reviewed the patient's medical records. Lab Data Radiology Impressions Shoulder X-Ray 12/03/23 19:11 IMPRESSION: No acute findings. All radiology interpretation(s) finalized by discharge Discharge Plan Discharge Patient Disposition: Home Clinical Impression: Sprain of left shoulder Qualifiers: Encounter type: initial encounter Shoulder sprain type: unspecified sprain Qualified Code(s): S43.402A - Unspecified sprain of left shoulder joint, initial encounter Fall Qualifiers: Encounter type: initial encounter Qualified Code(s): W19.XXXA - Unspecified fall, initial encounter Condition: Stable Prescriptions: New tizanidine 2 mg capsule 2 mg PO Q8H PRN (Reason: muscle spasticity, pain) Qty: 20 0RF Discontinued alprazolam 1 mg tablet 1 mg PO TID PRN (Reason: Anxiety) No Action ipratropium-albuterol 0.5 mg-3 mg(2.5 mg base)/3 mL solution for nebulization 3 ml inhalation Q6H PRN (Reason: shortness of breath or wheezing) Qty: 180 3RF Bevespi Aerosphere 9-4.8 mcg HFA aerosol inhaler 2 puff inhalation BID Qty: 10.7 5RF atorvastatin 20 mg tablet 20 mg PO BEDTIME hydrocodone-acetaminophen 5-325 mg tablet 1 tab PO BID PRN (Reason: Pain) aspirin [Ami Low Dose Aspirin] 81 mg Tablet,Delayed Release (Dr/Ec) 81 mg PO DAILY albuterol sulfate [Ventolin HFA] 90 mcg/actuation HFA aerosol inhaler 2 puff INHALATION Q4H PRN (Reason: Shortness Of Breath) duloxetine 60 mg capsule,delayed release(DR/EC) 120 mg PO QAM One-A-Day Womens Formula 18 mg iron-400 mcg-500 mg Tablet 1 tab PO DAILY ascorbic acid (vitamin C) [Vitamin C] 500 mg Tablet 500 mg PO BEDTIME quetiapine 25 mg tablet 25 mg PO QAM quetiapine 100 mg tablet 100 mg PO BEDTIME Seroquel 25 mg Tablet 50 mg PO QNOON Nicorette 4 mg Gum 4 mg BUCCAL Q2H Discharge Orders: Discharge ED (Routine); Ordered 12/03/23 Ordered By: Anival Rashid Referrals: Sushant Ogden DO [Primary Care Provider] - Discharge Diet: Usual diet Discharge Activity: Increase activity as tolerated Patient Instructions: Shoulder Sprain (ED) Activity Restrictions/Additional Instructions: No fracture or acute bony abnormalities noted on the x-ray today The injury is likely a sprain. Please use the provided sling to protect the shoulder from further injury for the next couple of days, then work on range of motion exercises Tizanidine has been sent to your pharmacy to help with the discomfort to the left shoulder. 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
[2023-12-03] MEDS: tizanidine 4 mg Tablet 2 MG PO (20:15)
[2023-12-03 20:17] VITALS: BP 171/84; PULSE 89; RESP 20; O2SAT 96
== END 2023-12-03 20:38 | disposition home or self-care (01) ==
PROVIDERS: Emergency Provider Nurse Practitioner; PCP Internal Medicine
DX: S43.402A Unspecified sprain of left shoulder joint, initial encounter (principal); Z79.82 Long term (current) use of aspirin; Z87.891 Personal history of nicotine dependence; J44.9 Chronic obstructive pulmonary disease, unspecified; I12.9 Hypertensive chronic kidney disease with stage 1 through stage 4 chronic kidney disease, or unspecified chronic kidney disease; N18.9 Chronic kidney disease, unspecified; E78.5 Hyperlipidemia, unspecified; W08.XXXA Fall from other furniture, initial encounter
CPT/HCPCS: 73030; 99283

== ENCOUNTER 2025-07-31 23:04 | Emergency (ER) | payer MEDICARE, MEDICAID, SELFPAY ==
--- NOTE | 2025-07-31 23:05 | CTR_ITS ---
PROCEDURE INFORMATION: Exam: CT Head Without Contrast Exam date and time: 08/01/2025 12:11 AM Age: 75 years old Clinical indication: EMS arrival for general weakness TECHNIQUE: Imaging protocol: Computed tomography of the head without contrast. Radiation optimization: All CT scans at this facility use at least one of these dose optimization techniques: automated exposure control; mA and/or kV adjustment per patient size (includes targeted exams where dose is matched to clinical indication); or iterative reconstruction. COMPARISON: CT head wo con* [id number] 07/23/2023 1:08 PM RADIATION DOSE METRICS: Total DLP (mGy-cm): 848.82 FINDINGS: Brain: Large amount of diffuse white matter disease likely reflecting chronic microvascular ischemic changes. Cerebral ventricles: No ventriculomegaly. Paranasal sinuses: Visualized sinuses are unremarkable. No fluid levels. Mastoid air cells: Visualized mastoid air cells are well aerated. Bones: Unremarkable. No acute fracture. Soft tissues: Unremarkable. CT/CT head wo con* [id number] IMPRESSION: Negative for intracranial hemorrhage or mass effect.
--- NOTE | 2025-07-31 23:06 | ECG_ITS ---
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 Measurements Intervals [place] Rate: 83 P: 68 GA: 147 QRS: 42 QRSD: 86 T: 73 QT: 383 QTc: 450 Interpretive Statements SINUS RHYTHM Compared to ECG 07/23/2023 12:16:57 No significant changes Electronically Signed On 08-03-2025 19:31:20 CDT by Gamaliel Douglass M.D. [email or web address]
[2025-07-31 23:10] VITALS: BP 96/75; PULSE 90; RESP 18; TEMP 36.3; O2SAT 97; BMI 35.2
--- NOTE | 2025-07-31 23:12 | ED_ITS ---
HPI - General Adult 2 General: Chief complaint: Altered Mental Status Stated complaint: CONFUSION Source: patient and EMS Mode of arrival: EMS History of Present Illness: 75-year-old female presents here from as sisted living with some increased confusion along with shortness of breath. Patient wears 2 L of oxygen at baseline they state over the last week they had to turn up to 3 L. Here she is able to tell me their name and the year answering most of my questions appropriately. She denies any cough or fever she denies any pain anywhere. Related Data Home Medications ?Medication ?Instructions ?Recorded ?Confirmed albuterol sulfate 90 mcg/actuation 2 puff inhalation Q 4H PRN 07/07/20 09/26/23 aerosol inhaler (Ventolin HFA) Shortness Of Breath aspirin 81 mg tablet,delayed 81 mg PO DAILY 07/07/20 1 11/27/22 release (Ami Low Dose Aspirin) atorvastatin 20 mg tablet 20 mg PO BEDTIME 07/07/20 duloxetine 60 mg capsule,delayed 120 mg PO QAM 0 09/26/23 release hydrocodone 5 mg-acetaminophen 325 1 tab PO BID PRN Pa in 07/07/20 09/26/23 mg tablet [id number]-Ca carb-vit K 1 tab PO DAILY 06/1509/26/23 18 mg iron-400 mcg-500 mg tablet (One-A-Day Womens Formula) ascorbic acid (vitamin C) 500 mg 500 mg PO BEDTIME 09/26/23 tablet (Vitamin C) quetiapine 100 mg tablet 100 mg PO BEDTIME 09/06/22 1 11/27/22 quetiapine 25 mg tablet 25 mg PO QAM 09/06/22 quetiapine 25 mg tablet (Seroquel) 50 mg PO QNOON 05/0509/26/23 nicotine (polacrilex) 4 mg gum 4 mg buccal Q2H 3 09/26/23 (Nicorette) Previous Rx's ?Medication ?Instructions ?Recorded ipratropium 0.5 mg-albuterol 3 mg 3 ml inhalation Q6H PRN shortness 02/15/23 (2.5 mg base)/3 mL nebulization of breath or wheezing #180 mL soln tizanidine 2 mg capsule 2 mg PO Q8H PRN muscle spast icity, 12/03/23 pain #20 caps glycopyrrolate 9 mcg-formoterol 2 puff inhalation BID #10.7 grams 04/09/24 4.8 mcg HFA aerosol inhaler (Bevespi Aerosphere) doxycycline hyclate 100 mg tablet 100 mg PO BID 7 days #14 tabs 08/01/25 Allergies Allergy/AdvReac Type Severity Reaction Status Date / Time codeine Allergy Unknown Verified 12/03/23 19:14 Penicillins Allergy Unknown Verified 12/03/23 19:14 PFS ED 2 PFSH: Medical History (Updated 08/01/25 @ 00:57 by Nacho Malcolm MD) Closed fracture of right inferior pubic ramus Encounter for screening for lung cancer Low back pain associated with a spinal disorder other than radiculopathy or spinal stenosis Exertional dyspnea COPD (chronic obstructive pulmonary disease) Smoking addiction CKD (chronic kidney disease) Syncope Falls frequently Hypoxia Hyperlipidemia Hypertension COPD with acute bronchitis Surgical History Hx of cholecystectomy H/O: hysterectomy Family History Other Raynaud's disease Social History Smoking and tobacco/nicotine status: former use of tobacco/nicotine Quit status (tobacco/nicotine): has quit using Year quit tobacco: August 2022 Former quit date comment: 1-1.5ppd x 53 years Alcohol intake: never Substance/Drug Use: never Additional social history: Daughter is her DPOA Lives independently: Yes Household members: none Physical Exam 2 Const: COMMON NORMALS: alert; negative for patient oriented x3 ORIENTATION/CONSCIOUSNESS: Yes oriented to person and Yes oriented to time; not oriented to place HENMT: COMMON NORMALS: normocephalic and atraumatic HEAD & SCALP: n ormocephalic and atraumatic Eye: COMMON NORMALS: Equal, round and reactive pupils present and EOMs intact bilaterally PUPIL: Yes Equal, round and reactive pupils present Neck/C-Spine: COMMON NORMALS: full ROM and supple Chest: COMMONS NORMALS: normal inspection of the chest and normal palpation of entire chest wall Resp: COMMON NORMALS: normal respiratory effort, No retractions, No use of accessory muscles and clear to auscultation bilaterally AUSCULTATION: clear to auscultation bilaterally Cardio: COMMON NORMALS: regular rate, regular rhythm and No murmurs present (Cardio) RATE: regular rate RHYTHM: regular rhythm GI: COMMON NORMALS: Normal to inspection, nondistended, normoactive bowel sounds present, Soft to palpation, non-tender and no masses PALPATION: Yes Soft to palpation Extremity: COMMON NORMALS: normal to inspection and full ROM Neuro: COMMON NORMALS: moves all extremities and no focal motor deficits; negative for patient oriented x3 SENSORIUM/ORIENTATION: Yes alert, Yes oriented to person, No oriented to place and Yes oriented to time Psych: COMMON NORMALS: mental status grossly normal, Normal thought process present and cooperative THOUGHT PROCESS: Normal thought process present Skin: COMMON NORMALS: no rashes or lesions noted and no wounds GENERAL SKIN EXAM: no rashes or lesions noted Course 2 Vital Signs: Vital signs: Vital Signs Temperature 97.3 F L 07/31/25 23:10 Pulse Rate 90 07/31/25 23:10 Respiratory Rate 18 07/31/25 23:10 Blood Pressure 104/74 08/01/25 00:53 Pulse Oximetry 97 08/01/25 00:53 Oxygen Delivery Me thod Nasal Cannula 08/01/25 00:53 MDM - General Adult Medical Decision Making Patient presents here with some slight confusion has been intermittent for the last few days. Differential includes UTI, pneumonia, stroke, brain hemorrhage. Patient's head CT here was normal she is at her baseline currently family is here stating she at her baseline she has no signs of a stroke. She has no deficits here. X-ray showed atelectasis versus a possible pneumonia her white count here is normal she has no signs of sepsis we will start her on doxycycline I feel she is stable for discharge back to assisted living she is return if worsening family and her understand agree to plan I did review her chest x-ray that showed no acute abnormalities. EKG here showed normal sinus rhythm heart rate [address] elevation QRS 86 QTc 422 Medical Records I reviewed the patient's medical records. Lab Data I reviewed the patient's lab results. 07/31/25 22:30 07/31/25 22:[address] 07/31/25 23:05 IMPRESSION: Negative for intracranial hemorrhage or mass effect. Chest X-Ray 07/31/25 23:45 IMPRESSION: 1. Right lower lobe atelectasis versus infiltrate. 2. Emphysematous changes. 3. Aorta appears more prominent compared to prior exam, consider further evaluation with a CT scan. Laboratory Results WBC 7.35 10^3/uL (3.29-11.43) 07/31/25 22:30 RBC 4.58 10^6/uL (3.85-5.65) 07/31/25 22:30 Hgb 13.50 g/dL (11.27-16.99) 07/31/25 22:30 Hct 39.9 % (36-47) 07/31/25:30 MCV 87.1 fl (85-98) 07/31/25 22:30 MCH 29.5 pg (27-33) 07/31/25: MCHC 33.8 g/dL (30-55) 07/31/25: RDW 12.3 % (12.1-15.1) 07/31/25:30 Plt Count 240 10^3/cmm (157-399) 07/31/25:30 MPV 9.8 fL (7.4-10.4) 07/31/25 22:30 Neut % (Auto) 65.0 % 07/31/25:30 Lymph % (Auto) 24.2 % 07/31/25:30 [place] % (Auto) 8.7 % 07/31/25: Eos % (Auto) 1.0 % 07/31/25: Baso % (Auto) 0.7 % 07/31/25:30 Neut # (Auto) 4.78 10^3/uL (1.8-7.7) 07/31/25:30 Lymph # (Auto) 1.8 10^3/uL (0.8-4.8) 07/31/25:30 [place] # (Auto) 0.6 10^3/uL (0.2-0.9) 07/31/25 22:30 Eos # (Auto) 0.1 10^3/uL (0.0-0.8) 07/31/25: Baso # (Auto) 0.1 10^3/uL (0.0-0.1) 07/31/25 22:30 Nucleated RBC % (auto) 0 % 07/31/25: Nucleated RBCs # 0.0 /100WBC 07/31/25 22:30 Specimen Type Arterial 07/31/25 23:28 Sample Site Brachial, left 07/31/25 23:28 ABG pH 7.41 (7.35-7.45) 07/31/25 23: ABG pCO2 47.0 mmHg (35-45) H 07/31/25 23: ABG pO2 89.3 mmHg (80.0-100.0) 07/31/25 23: ABG HCO3 29.5 mmol/L (22-26) H 07/31/25 23: ABG Base Excess 4.0 mmol/L (-2.0-2.0) H 07/31/25 23:28 Juan Carlos Test N/a 07/31/25 23: Hematocrit 41.3 % (37-47) 07/31/25 23:28 Hgb O2 Saturation 95.6 % (95-100) 07/31/25 23: Carboxyhemoglobin 1.0 %THgb (0.4-20.1) 07/31/25 23: Methemoglobin 0.9 % (0.4-1.5) 07/31/25 23: Total Hemoglobin 13.5 g/dL (12-16) 07/31/25 23:28 O2 Delivery Device Nc 07/31/25 23: O2 Liters/Min 3.0 % 07/31/25 23:28 Freight Brake Operator ID [id number] 07/31/25 23:28 Sodium 140 mmol/L (136-145) 07/31/25 22:30 Sodium Cancelled 07/31/25 22:30 Potassium 4.5 mmol/L (3.5-5.1) 07/31/25 22:30 Potassium Cancelled 07/31/25 22:30 Chloride 98 mmol/L (98-107) 07/31/25 22:30 Chloride Cancelled 07/31/25 22:30 Carbon Dioxide 28 mmol/L (22-29) 07/31/25 22:30 Carbon Dioxide Cancelled 07/31/25 22:30 Anion Gap 18.5 (5-19) 10/18/25 22:30 Anion Gap Cancelled 07/31/25 22:30 BUN 39 mg/dL (8-23) H 07/31/25 22:30 BUN Cancelled 07/31/25 22: Creatinine 1.5 mg/dL (0.5-0.9) H 07/31/25 22:30 Creatinine Cancelled 07/31/25 22:30 GFR Calculation Cancelled 07/31/25 22: GFR Calculation Not Reportable 07/31/25 22: Glucose 145 mg/dL (65-115) H 07/31/25 22:30 Glucose Cancelled 07/31/25 22:30 Calculated Osmolality 302 mOsm/kg (285-295) H 07/31/25 22:30 Calculated Osmolality Cancelled 07/31/25 22: Calcium 10.5 mg/dL (8.5-10.5) 07/31/25 22: Calcium Cancelled 07/31/25 22:30 Total Bilirubin 0.3 mg/dL (0.15-1.2) 07/31/25 22: Total Bilirubin Cancelled 07/31/25 22:30 AST 26 U/L (0-32) 07/31/25 22:30 AST Cancelled 07/31/25 22:30 ALT 15 U/L (0-33) 07/31/25 22:30 ALT Cancelled 07/31/25 22:30 Alkaline Phosphatase 79 U/L (35-105) 07/31/25 22:30 Alkaline Phosphatase Cancelled 07/31/25 22:30 NT-Pro-B Natriuret Pep 175 pg/mL (0-450) 07/31/25 23:30 Total Protein 7.3 g/dL (6.6-8.7) 07/31/25 22:30 Total Protein Cancelled 07/31/25 22:30 Albumin 4.8 g/dL (3.5-5.2) 07/31/25 22:30 Albumin Cancelled 07/31/25 22:30 Globulin 2.5 g/dL (1.3-4.6) 07/31/25 22:30 Globulin Cancelled 07/31/25 22:30 Lipase 23 U/L (13-60) 07/31/25 22: Lipase Cancelled 07/31/25 22: TSH 2.13 uIU/mL (0.27-4.20) 07/31/25 22:30 TSH Cancelled 07/31/25 22:30 Urine Color Yellow (Yellow) 07/31/25 23:11 Urine Appearance Clear (CLEAR) 07/31/25 23:11 Urine pH 5 (5-7) 07/31/25 23:11 Ur Specific [place] 1.030 (1.005-1.030) 07/31/25 23:11 Urine Protein 1+ (Negative) H 07/31/25 23:11 Urine Glucose (UA) Norm (Normal) 07/31/25 23:11 Urine Ketones Negative (Negative) 07/31/25 23:11 Urine Blood 1+ (Negative) H 07/31/25 23:11 Urine Nitrate Negative (Negative) 07/31/25 23:11 Urine Bilirubin 1+ (Negative) H 07/31/25 23:11 Urine Urobilinogen 1 mg/dL (Negative) H 07/31/25 23:11 Ur Leukocyte Esterase Negative (Negative) 07/31/25 23:11 Urine RBC 5-10 /hpf (0-2) H 07/31/25 23:11 Urine WBC 0-5 /hpf (0-5) 07/31/25 23:11 Ur Squamous Epith Cells 0-4 /hpf (0-5) H 07/31/25 23:11 Amorphous Sediment Not Reportable 07/31/25 23:11 Urine Bacteria Trace /hpf (NONE) 07/31/25 23:11 Hyaline Casts 80-100 /lpf H 07/31/25 23:11 Urine Mucus 2+ /hpf 07/31/25 23:11 All radiology interpretation(s) finalized by discharge EKG Data EKG 1: I personally reviewed and interpreted this EKG as follows: EKG interpretation date: 07/31/25 EKG interpretation time: 23:26 Interpretation: nsr hr [address] elevation qrs 86 qtc 422 Computer generated interpretation: Head CT 07/31/25 23:05 IMPRESSION: Negative for intracranial hemorrhage or mass effect. Chest X-Ray 07/31/25 23:45 IMPRESSION: 1. Right lower lobe atelectasis versus infiltrate. 2. Emphysematous changes. 3. Aorta appears more prominent compared to prior exam, consider further evaluation with a CT scan. Discharge Plan Discharge Patient Disposition: Home Clinical Impression: Right lower lobe pneumonia Qualifiers: Pneumonia type: due to unspecified organism Qualified Code(s): J18.9 - Pneumonia, unspecified organism Condition: Stable Prescriptions: New doxycycline hyclate 100 mg tablet 100 mg PO BID 7 Days Qty: 14 0RF No Action ipratropium-albuterol 0.5 mg-3 mg(2.5 mg base)/3 mL solution for nebulization 3 ml inhalation Q6H PRN (Reason: shortness of breath or wheezing) Qty: 180 3RF Bevespi Aerosphere 9-4.8 mcg HFA aerosol inhaler 2 puff inhalation BID Qty: 10.7 5RF atorvastatin 20 mg tablet 20 mg PO BEDTIME hydrocodone-acetaminophen 5-325 mg tablet 1 tab PO BID PRN (Reason: Pain) aspirin [Ami Low Dose Aspirin] 81 mg Tablet,Delayed Release (Dr/Ec) 81 mg PO DAILY albuterol sulfate [Ventolin HFA] 90 mcg/actuation HFA aerosol inhaler 2 puff INHALATION Q4H PRN (Reason: Shortness Of Breath) duloxetine 60 mg capsule,delayed release(DR/EC) 120 mg PO QAM One-A-Day Womens Formula 18 mg iron-400 mcg-500 mg Tablet 1 tab PO DAILY ascorbic acid (vitamin C) [Vitamin C] 500 mg Tablet 500 mg PO BEDTIME quetiapine 25 mg tablet 25 mg PO QAM quetiapine 100 mg tablet 100 mg PO BEDTIME Seroquel 25 mg Tablet 50 mg PO QNOON Nicorette 4 mg Gum 4 mg BUCCAL Q2H tizanidine 2 mg capsule 2 mg PO Q8H PRN (Reason: muscle spasticity, pain) Qty: 20 0RF Discharge Orders: Discharge ED (Routine); Ordered 08/01/25 Ordered By: Nacho Malcolm Referrals: Sushant Ogden DO [Primary Care Provider, Internal Medicine] - 4-7 days Discharge Diet: Advance as tolerated Discharge Activity: Resume usual activity Patient Instructions: Pneumonia (ED) Print Language: Latvian Coding Level of Care Code ED 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
--- OUTSIDE RECORDS SUMMARY | 2025-07-31 23:13 | XMS_ITS | Encounter Summary ---
Author Organization [facility] Address [address] [place] [address] Care Team Providers Care Leaf Tier Name Role Phone Kanu Lyn DO Primary Care Provider Encounter Details Date Type Department Care Team (Late st Contact Info) Description 09/30/2007 Outpatient Historical [facility] 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
--- OUTSIDE RECORDS SUMMARY | 2025-07-31 23:13 | XMS_ITS | Encounter Summary ---
Author Organization [facility] Address [address] [place] [address] Care Team Providers Care Transportation Worker Name Role Phone Kanu Lyn DO Primary Care Provider Encounter Details Date Type Department Care Team (Latest Contact Info) Description 01/30/2006 Outpatient Historical [facility] Int [place] [place] [phone] Kanu Lyn DO [address] [place] [phone] DM w/o Complication Type II (CMS/HCC) (Primary Dx); Unspecified Essential Hypertension; Routine Medical Exam Social History Tobacco Use Types Packs/Day Years Used Date Smoking Tobacco: Never Assessed Comments Unknown Sex and Gender Information Value Date Recorded Sex Assigned at Not on file 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 Gender Identity Not on file Sexual Orientation Not on file documented as of this encounter Plan of Treatment Not on file documented as of this encounter Visit Diagnoses Diagnosis Type II or unspecified type diabetes mellitus without mention of complication, not stated as uncontrolled- Primary Unspecified essential hypertension Routine medical exam Routine general medical examination at a health care facility documented in this encounter Care Teams Transportation Worker Relationship Specialty Start Date End Date Kanu Lyn DO [address] [place] [phone] PCP - General 03/27/06 09/04/11 documented as of this encounter
--- OUTSIDE RECORDS SUMMARY | 2025-07-31 23:13 | XMS_ITS | Clinical Summary ---
Author Organization [facility] Address [address] [facility] [place] [address] Care Team Providers Care Direct Mail Clerk Name Role Phone Unavailable Primary Care Provider Unavailabl e Allergies Active Allergy Reactions Criticality Noted Date Comments Penicillins Unknown 02/27/2008 Medications guaifenesin (MUCINEX) 600 mg Oral TbSR Take 1,200 mg by mouth 2 times daily. Active lisinopril (PRINIVIL) 40 mg Oral tablet Take 1 Tab by mouth daily. 90 Tab 3 0 Active metformin (GLUCOPHAGE) 1,000 mg Oral tabletIndicatio ns:Type II diabetes mellitus Take 1 Tab by mouth 2 times daily with meals. 180 Tab 1 0 Active meloxicam (MOBIC) 15 mg Oral tablet Take 1 Tab by mouth daily. 90 Tab 1 0 Active blood sugar diagnostic (ACCU-CHEK COMPACT TEST) Strp by See Admin Instructions route. 102 Strip 4 0 Active triamterene-hyd rochlorothiazid e (MAXZIDE) 18.75-12.5 mg Tablet Take 1 Tab by mouth daily. Every other day in PM Active Active Problems Problem Noted Date Diagnosed Date HTN (hypertension) 12/22/2008 Overview (11/07/2010): Updating IMO/ICD9 Code and Description Routine general medical exam ination at a health care facility 03/03/2008 Type II diabetes mellitus 02/27/2008 Hyperlipidemia 02/27/2008 Osteoarthritis 02/27/2008 Dysthymia 02/27/2008 Resolved Problems Problem Noted Date Diagnosed Date Resolved Date Essential hypertension, benign 02/27/2008 12/22/2008 Immunizations Immunization Administration Dates Next Due (PNEUMOVAX 23)(50 YRS UP) PN EUMOCOCCAL POLYSACCHARIDE (PPV23) 0.5 ML, IM 07/14/2008,08/14/2005 Influenza Seasonal Unspecifi ed Formulation IM 07/25/2009,07/14/2008,08/07/2006,08/14 Family History Medical History Relation Name Comments Cataract Mother Macular Degen Mother Cancer Other 1 Hypertension Other 1 Arthritis-osteo Other 2 Colon Cancer Other 2 multiple family members Migraines Other 2 Relation Name Status Comments Mother Other 1 Other 2 Social History Tobacco Use Types Packs/Day Years Used Date Smoking Tobacco: Never Comments:NO Alcohol Use Standard Drinks/Week Comments No 0 (1 standard drink = 0.6 oz pur e alcohol) Comments No Sex and Gender Information Value Date Recorded Sex Assigned at Not on file Legal Sex Female 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 Gender Identity Not on file Sexual Orientation Not on file Last Filed Vital Signs Vital Sign Reading Time Taken Comments Blood Pressure 126/86 02/03/2014 12:42 PM CDT Pulse 86 02/03/2014 12:42 PM CDT Temperature - - Respiratory Rate 16 04/27/2009 9:07 AM CDT Oxygen Saturation - - Inhaled Oxygen Concentration - - Weight 69.9 kg (154 lb) 02/03/2014 12:42 PM CDT Height 152.4 cm (5') 02/03/2014 12:42 PM CDT Body Mass Index 30.08 02/03/2014 12:42 PM CDT Plan of Treatment Health Maintenance Due Date Last Done Comments DIABETES ANNUAL FOOT EXAM 1967 DTAP/TDAP/TD VACCINES (1 - Tdap) 02/05/1968 ZOSTER VACCINE (1 of 2) 1999 DIABETES MICROALBUMIN ANNUAL SCREEN 03/01/2009 03/01/2008, 02/03/2007, 01/30/2006 PNEUMOCOCCAL VACCINE 50+ YEA RS (2 of 2 - PCV) 07/14/2009 07/14/2008, 08/14/2005 DIABETES HBA1C Q 6 MONTHS 04/23/20102009, 04/25/2009, 12/22/2008, Additional history exists LDL CHOLESTEROL ANNUAL 04/25/2010 07200 9, 03/01/2008, 02/03/2007, Additional history exists DIABETES ANNUAL RETINAL EXAM 06/01/2010, 06/01/2009, 06/01/2009, Additional history exists OSTEOPOROSIS SCREENING 2014 RSV VACCINE (60+ or ) (1 - 1-dose 75+ series) 02/05/2024 INFLUENZA VACCINE (#1) 2025 9, 07/14/2008, 08/07/2006, Additional history exists COLORECTAL SCREENING Discontinued 03/27/2006 Colorectal Cancer Screening Discontinued FIT-DNA Q 3 years Discontinued FIT/FOBT Q 1 year Discontinued Flex Sig/CT Colonography Q 5 years Discontinued Procedures Procedure Name Priority Date/Time Associated Diagnosis Comments HEMOGLOBIN A1C Routine 10/24/2009 10:06 AM EAR MACHINE OPERATOR Type II Diabetes Mellitus (CMS/HCC) LIPID PANEL Routine 04/25/2009 7:28 AM CDT Routine General Medical Examination at a Health Care Facility MICROALBUMIN, RANDOM URINE Routine 03/01/2008 8:03 AM CDT Routine General Medical Examination at a Health Care Facility from Last 3 Months or Most Recently Relevant to Health Maintenance Results * (ABNORMAL) HEMOGLOBIN A1C (10/24/2009 10:06 AM EAR MACHINE OPERATOR) HEMOGLOBIN A1C 6.7(H) 4.0 - 6.0 % [facility] Blood specimen (specimen) 10/24/2009 10:06 AM EAR MACHINE OPERATOR 10/24/2009 10:11 AM EAR MACHINE OPERATOR Kanu Lyn DO CHEMISTRY ORDERABLES Final Res ult INTERFACE SYSTEM Refer to clinic/hospital department [facility] CLIA# [id number] [address] [place] [address] * (ABNORMAL) LIPID PANEL (04/25/2009 7:28 AM CDT) CHOLESTEROL 132 100 - 200 MG/DL [facility] TRIGLYCERIDE 195(H) 0 - 150 MG/DL [facility] HDL 46 40 - 60 MG/DL [facility] LDL CALCULATED 47(L) 58 - 100 MG/DL [facility] Comment: CALCULATED LDL REFERENCE: < 100 Optimal 100 - 129 Near Optimal 130 - 159 Borderline High > 160 High Risk CHOL/HDL RATIO 2.87(L) 3.27 - 4.[address] [facility] Blood specimen (specimen) 04/25/2009 7:28 AM CDT 04/25/2009 7:33 AM CDT Kanu Lyn DO CHEMISTRY ORDERABLES Final Res ult Performing Organization Address [facility] de Phone Number INTERFACE SYSTEM Refer to clinic/hospital department [facility] CLIA# [id number] [address] [place] [address] * MICROALBUMIN, RANDOM URINE (03/01/2008 8:03 AM CDT) MICROALBUMIN, URINE <20 <20 MG/L [facility] Urine specimen (specimen) 03/01/2008 8:03 AM CDT 03/01/2008 8:08 AM CDT Kanu Lyn DO URINE ORDERABLES Final Result Performing Organization Address [facility] de Phone Number [facility] CLIA# [id number] [address] [place] [address] from Last 3 Months or Most Recently Relevant to Health Maintenance Insurance [employer]
--- OUTSIDE RECORDS SUMMARY | 2025-07-31 23:13 | XMS_ITS | Encounter Summary ---
Author Organization [facility] Address [address] [place] [address] Care Team Providers Care Medical Physics Teacher Name Role Phone Kanu Lyn DO Primary Care Provider Encounter Details Date Type Department Care Team (Latest Contact Info) Description 05/08/2006 Outpatient Historical [facility] Int [address] [place] [place] [phone] Kanu Lyn DO [address] [place] [phone] DM w/o Complication Type II (CMS/HCC) (Primary Dx); Other and Unspecified Hyperlipidemia; Unspecified Essential Hypertension Social History Tobacco Use Types Packs/Day Years Used Date Smoking Tobacco: Never Assessed Comments Unknown Sex and Gender Information Value Date Recorded Sex Assigned at Not on file 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 Gender Identity Not on file Sexual Orientation Not on file documented as of this encounter Plan of Treatment Not on file documented as of this encounter Visit Diagnoses Diagnosis Type II or unspecified type diabetes mellitus without mention of complication, not stated as uncontrolled- Primary Other and unspecified hyperlipidemia Unspecified essential hypertension documented in this encounter Care Teams Medical Physics Teacher Relationship Specialty Start Date End Date Kanu Lyn DO [address] [place] [phone] PCP - General 03/27/06 09/04/11 documented as of this encounter
--- OUTSIDE RECORDS SUMMARY | 2025-07-31 23:13 | XMS_ITS | Encounter Summary ---
Author Organization [facility] Address [address] [place] [address] Care Team Providers Care Scrap Sorter Name Role Phone Kanu Lyn DO Primary Care Provider [phone] Encounter Details Date Type Department Care Team (Late st Contact Info) Description 11/10/2007 Outpatient Historical [facility] M[address]Latrell [address] [place] [place] [phone] Kanu Lyn DO [address] [place] [address] Social History Tobacco Use Types Packs/Day Years Used Date Smoking Tobacco: Never Assessed Comments Unknown Sex and Gender Information Value Date Recorded Sex Assigned at Not on file Legal Sex Female 4:32 AM TRANSIT MAN Gender Identity Not on file Sexual Orientation Not on file documented as of this encounter Progress Notes * Kanu Lyn DO - 11/10/2007 12:00 AM CST Patient Name: Fany Moctezuma DOS: 11/10/2007 : 1950 HPI: This is a 57-year-old white female who presents for cough and chest congestion over the past five to six days. She thinks it is a really bad cold. She has had subjective temperatures and chills.Cough has been nonproductive and she cannot get anything out. She has tried some cough medicines, some Tylenol and fluids; but nothing on a consistent basis. Denies ever having this happen before. ALLERGIES: PENICILLIN. MEDICATIONS: Metformin 1 gram b.i.d., lisinopril 5 mg a day, Lipitor 20 mg a day, aspirin 81 mg a day, Effexor-XR 75 mg a day. PAST MEDICAL HISTORY: Notable for type 2 diabetes, hyperlipidemia, hypertension, osteoarthritis. REVIEW OF SYSTEMS: Noted above. PHYSICAL EXAM: CONSTITUTIONAL: Non-toxic female in no acute distress. VITALS: Blood pressure 106/70. Heart rate 82. Weight 145. Temperature 98.6. EYES: Nl lids. Anicteric. PERRLA. EOMI. ENT: External auditory canals are bilaterally patent. TMs are intact without erythema. No injectionappreciated. Good cone of light. No sinus pressure tenderness. No rhinorrhea. No oral lesions appreciated. Oral hygiene is adequate. Tongue is midline without deviation. Throat is moist and pink without erythema. Uvula is midline. The trachea is midline. No thyromegaly appreciated. No lymphadenopathy appreciated. No restriction of cervical movement. Neck is supple. CV: Regular rhythm without murmur, clicks, or gallop. Normal S1 and S2. PULM: Clear to auscultation bilaterally without wheeze. No use of accessory muscles. Nl respiratoryrate and rhythm. ASSESSMENT AND PLAN: Cough. It is possible that she could be developing a pneumonia. I have given her Levaquin 750 mg daily for the next five days, Vicotuss 60 mL, 5 mL p.o. every 12 hours p.r.n. cough; and Fina-D samples for her to try out. Should she clinically deteriorate, follow up with me. Otherwise, she has a full physical with me next month with labs at that time. The patient was educated and understands the current plan of management. There are no barriers to understanding. Kanu Lyn D.O. Internal Medicine - [facility] Electronically Signed by Kanu Lyn D.O. 11/12/2007 20:47 , P, 590 Document #: [id number] cc: SIT MAN documented in this encounter Plan of Treatment Not on file documented as of this encounter Visit Diagnoses Not on filedocumented in this encounter Care Teams Scrap Sorter Relationship Specialty Start Date End Date Kanu Lyn DO [address] [address] PCP - General 03/27/06 09/04/11 documented as of this encounter
--- OUTSIDE RECORDS SUMMARY | 2025-07-31 23:13 | XMS_ITS | Encounter Summary ---
Author Organization [facility] Address [address] [place] [address] Care Team Providers Care Canvas Cutter Machine Name Role Phone Kanu Lyn DO Primary Care Provider [phone] Encounter Details Date Type Department Care Team (Latest Contact Info) Description 03/27/2006 Outpatient Historical [facility] Endoscopy [place] [address] [place] [address] Raul Grijalva MD [address] [place] [address] Benign Neoplasm of Colon (Primary Dx) Social History Tobacco Use Types Packs/Day Years Used Date Smoking Tobacco: Never Assessed Comments Unknown Sex and Gender Information Value Date Recorded Sex Assigned at Not on file Legal Sex Female 4:32 AM RESIDENTIAL ADVISOR Gender Identity Not on file Sexual Orientation Not on file documented as of this encounter Plan of Treatment Not on file documented as of this encounter Visit Diagnoses Diagnosis Benign neoplasm of colon- Primary documented in this encounter Care Teams Canvas Cutter Machine Relationship Specialty Start Date End Date Kanu Lyn DO [address] [place] [phone] PCP - General 03/27/06 09/04/11 documented as of this encounter
--- OUTSIDE RECORDS SUMMARY | 2025-07-31 23:13 | XMS_ITS | Encounter Summary ---
Author Organization [facility] Address [address] [place] [address] Care Team Providers Care Supervisor Gate Services Name Role Phone Kanu Lyn DO Primary Care Provider [phone] Encounter Details Date Type Department Care Team (Late st Contact Info) Description 05/04/2007 Emergency [facility] Emergency Department [address] [place] [address] Donnell Velasquez MD NO ADDRESS ON FILE Contact Dermatitis and Other Eczema, due to Unspecified Cause (Primary Dx) Social History Tobacco Use Types Packs/Day Years Used Date Smoking Tobacco: Never Assessed Comments Unknown Sex and Gender Information Value Date Recorded Sex Assigned at Not on file 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 Gender Identity Not on file Sexual Orientation Not on file documented as of this encounter Plan of Treatment Not on file documented as of this encounter Procedures Procedure Name Priority Date/Time Associated Diagnosis Comments CBC WITH DIFFERENTIAL Routine 05/04/2007 7:07 PM CDT SEDIMENTATION RATE Routine 05/04/2007 7: 07 PM CDT TSH Routine 05/04/2007 7:07 PM CDT BASIC METABOLIC PANEL Routine 05/04/2007 7:[address] SOFT TISSUE NECK W CONTRAST Routine 05/04/2007 6:12 PM CDT documented in this encounter Results * TSH (05/04/2007 7:07 PM CDT) TSH 1.410 0.350 - 5.500 uIU/ml INTERFACE SYSTEM Comment: As of 05 at 3:00 p.m. [facility] has changed the methodology for TSH, and with this change the reference range has changed from 0.49-4.67 to 0.35-5.5 uIU/ml. 05/04/2007 7:07 PM CDT Huey Lerma Jr., DO CHEMISTRY ORDERABLES Edit ed Performing Organization Address [facility] Phone Number INTERFACE SYSTEM Refer to clinic/hospital department * (ABNORMAL) BASIC METABOLIC PANEL (05/04/2007 7:07 PM CDT) GLUCOSE 122(H) 70 - 110 mg/dL INTERFACE SYSTEM BUN 7 7 - 17 mg/dL INTERFACE SYSTEM CREATININE 0.6(L) 0.7 - 1.2 mg/dL INTERFACE SYSTEM SODIUM 144 136 - 145 mEq/L INTERFACE SYSTEM POTASSIUM 3.6 3.5 - 5.0 mEq/L INTERFACE SYSTEM CHLORIDE 108 95 - 110 mEq/L INTERFACE SYSTEM CO2 29 22 - 32 mmol/l INTERFACE SYSTEM CALCIUM 9.8 8.4 - 10.5 mg/dL INTERFACE SYSTEM ANION GAP 11 9 - 20 mEq/L INTERFACE SYSTEM OSMOLALITY, CALCULATED 294 275 - 295 mOsm/Kg INTERFACE SYSTEM 05/04/2007 7:07 PM CDT Huey Lerma Jr., DO CHEMISTRY ORDERABLES Edit ed Performing Organization Address [facility] Phone Number INTERFACE SYSTEM Refer to clinic/hospital department * SEDIMENTATION RATE (05/04/2007 7:07 PM CDT) ESR (SEDIMENTATION RATE) 3 0 - 22 mm/hr INTERFACE SYSTEM 05/04/2007 7:07 PM CDT Huey Lerma Jr., DO HEMATOLOGY ORDERABLES Bob deirdre Performing Organization Address [facility] Phone Number INTERFACE SYSTEM Refer to clinic/hospital department * CBC WITH DIFFERENTIAL (05/04/2007 7:07 PM CDT) WBC 8.6 4.8 - 10.8 K/ul INTERFACE SYSTEM RBC 4.96 4.20 - 5.40 Mil/ul INTERFACE SYSTEM HEMOGLOBIN 15.1 12.0 - 16.0 g/dL INTERFACE SYSTEM HEMATOCRIT 44.2 36.0 - 46.0 % INTERFACE SYSTEM MCV 89.1 84.0 - 103.0 Fl INTERFACE SYSTEM MCH 30.4 27.0 - 34.0 pg INTERFACE SYSTEM MCHC 34.2 30.0 - 35.0 g/dL INTERFACE SYSTEM RDW 13.4 11.0 - 14.5 % INTERFACE SYSTEM PLATELETS 256 140 - 440 K/ul INTERFACE SYSTEM MPV 10.6 8.9 - 12.8 Fl INTERFACE SYSTEM NEUTROPHILS 59.0 42.2 - 75.2 % INTERFACE SYSTEM LYMPHOCYTES 29.0 24.0 - 44.0 % INTERFACE SYSTEM MONOCYTES 7.0 2.0 - 10.0 % INTERFACE SYSTEM EOSINOPHILS 4.5 0.0 - 7.0 % INTERFACE SYSTEM BASOPHILS 0.5 0.0 - 1.0 % INTERFACE SYSTEM NEUTROPHIL ABSOLUTE 5.1 2.0 - 8.0 K/ul INTERFACE SYSTEM LYMPHOCYTE ABSOLUTE 2.5 1.2 - 4.0 K/ul INTERFACE SYSTEM MONOCYTE ABSOLUTE 0.6 0.1 - 0.6 K/ul INTERFACE SYSTEM EOSINOPHIL ABSOLUTE 0.4 0.0 - 0.7 K/ul INTERFACE SYSTEM BASOPHILS ABSOLUTE 0.0 0.0 - 0.2 K/ul INTERFACE SYSTEM 05/04/2007 7:07 PM CDT Huey Lerma Jr., HEMATOLOGY ORDERABLES Bob deirdre INTERFACE SYSTEM Refer to clinic/hospital department * CT SOFT TISSUE NECK W CONTRAST (05/04/2007 6:12 PM CDT) Anatomical Region Laterality Modality Neck Other 05/04/2007 6:12 PM CDT Narrative 05/04/2007 6:12 PM CDT Date: 05/04/2007History: Difficulty swallowing. Facial and throat swelling. Findings: Contiguous thin section images were obtained of the soft tissues of the neck with theadministration of IV contrast. 50 mL of Optiray-240 was injected through an existing IV site [facility]. Coronal and sagittal reconstructed images were generated. No comparisons. The visualized base of the brain appears unremarkable. The basilar artery, vertebral arteries,internal and external carotid arteries, carotid arteries and internal jugular veins appear patentwithout significant abnormality. There are nonenlarged lymph nodes scattered throughout the softtissues of the neck, but no lymphadenopathy. There is no significant inflammation involving thesoft tissues of the neck and there are no definite areas of loculated fluid or abscess formation. The parotid glands and submandibular glands appear grossly normal. The epiglottis appears normalwithout swelling. The retropharyngeal and retroesophageal soft tissues are within normal limits. The soft palate and uvula appears normal. The nasopharyngeal airway is patent as is the trachealairway. Parapharyngeal spaces are preserved. The hyoid bone appears normal. The thyroid glandappears normal. There is no lymphadenopathy within the supraclavicular regions. Visualized superiormediastinum appears normal. The lung apices reveal mild biapical emphysema. Review of the osseousstructures reveals no acute abnormalities. There is loss of normal cervical lordosis, but the facetjoints are overlapping in normal anatomic fashion. The lateral masses of C1 and C2 are wellaligned. The mastoid air cells are clear. SUMMARY: 1. No acute abnormality regarding the soft tissues of the neck. No areas of significant inflammation,loculated fluid or abscess formation. No lymphadenopathy. 2. Patent nasopharyngeal, pharyngeal and tracheal airways. No areas of significant narrowing. The softpalate, uvula and epiglottis appear normal. 3. Mild biapical emphysema. - Dictated By: Owen Otero Jr., M.D. Electronically Signed By: Owen Otero Jr., M.D.MD Date Signed: 05/05/07 Procedure Note 09/03/2009 Date: 05/04/2007History: Difficulty swallowing. Facial and throat swelling. Findings: Contiguous thin section images were obtained of the soft tissues of theneck with theadministration of IV contrast. 50 mL of Optiray-240 was injected through an existing IV sitein theright posterior hand. Coronal and sagittal reconstructed images were generated. No comparisons. The visualized base of the brain appears unremarkable. The basilar artery,vertebral arteries,internal and external carotid arteries, carotid arteries and internal jugular veinsappear patentwithout significant abnormality. There are nonenlarged lymph nodes scatteredthroughout the softtissues of the neck, but no lymphadenopathy. There is no significant inflammationinvolving thesoft tissues of the neck and there are no definite areas of loculated fluid or abscess formation. The parotid glands and submandibular glands appear grossly normal. Theepiglottis appears normalwithout swelling. The retropharyngeal and retroesophageal soft tissues are withinnormal limits. The soft palate and uvula appears normal. The nasopharyngeal airway ispatent as is the trachealairway. Parapharyngeal spaces are preserved. The hyoid bone appears normal. Thethyroid glandappears normal. There is no lymphadenopathy within the supraclavicular regions. Visualizedsuperiormediastinum appears normal. The lung apices reveal mild biapical emphysema. Review of theosseousstructures reveals no acute abnormalities. There is loss of normal cervical lordosis, but thefacetjoints are overlapping in normal anatomic fashion. The lateral masses of C1 and C2 are wellaligned. Themastoid air cells are clear. SUMMARY: 1. No acute abnormality regarding the soft tissues of the neck. No areasof significant inflammation,loculated fluid or abscess formation. No lymphadenopathy. 2. Patent nasopharyngeal, pharyngeal and tracheal airways. No areas ofsignificant narrowing. The softpalate, uvula and epiglottis appear normal. 3. Mild biapical emphysema. - Dictated By: Owen Otero Jr., M.D. Electronically Signed By: Owen Otero Jr., M.D.MD Date Signed: 05/05/07 Huey Lerma Jr., DO CT ORDERABLES Final Res ult documented in this encounter Visit Diagnoses Diagnosis Contact dermatitis and other eczema, due to unspecified cause- Primary documented in this encounter Care Teams Supervisor Gate Services Relationship Specialty Start Date End Date Kanu Lyn DO [address] [phone] PCP - General 03/27/06 09/04/11 documented as of this encounter
--- OUTSIDE RECORDS SUMMARY | 2025-07-31 23:13 | XMS_ITS | Encounter Summary ---
Author Organization [facility] Address [address] [place] [address] Care Team Providers Care Form Layer Name Role Phone Kanu Lyn DO Primary Care Provider Encounter Details Date Type Department Care Team (Latest Contact Info) Description 09/25/2007 Outpatient Historical [facility] Imaging Services-Latrell Dodge Ashley [address] [place] [address] Wyatt Underwood MD [address] [place] [address] Pain in Joint, Shoulder Region Social History Tobacco Use Types Packs/Day Years Used Date Smoking Tobacco: Never Assessed Comments Unknown Sex and Gender Information Value Date Recorded Sex Assigned at Not on file 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
--- OUTSIDE RECORDS SUMMARY | 2025-07-31 23:13 | XMS_ITS | Encounter Summary ---
Author Organization [facility] Address [address] [place] [address] Care Team Providers Care Beef Cattle Specialist Name Role Phone Kanu Lyn DO Primary Care Provider [phone] Encounter Details Date Type Department Care Team (Latest Contact Info) Description 03/27/[address] [facility]astroenterology- [place] [address] [facility] [address] [place] [address] Raul Grijalva MD [address] [place] [address] Benign Jean Lg Bowel (Primary Dx); Family History of Malignant Neoplasm of Gastrointestinal Tract Social History Tobacco Use Types Packs/Day Years Used Date Smoking Tobacco: Never Assessed Comments Unknown Sex and Gender Information Value Date Recorded Sex Assigned at Not on file Legal Sex Female 4:32 AM WARDROBE COORDINATOR Gender Identity Not on file Sexual Orientation Not on file documented as of this encounter Plan of Treatment Not on file documented as of this encounter Visit Diagnoses Diagnosis Benign jean lg bowel- Primary Benign neoplasm of colon Family history of malignant neoplasm of gastrointestinal tract documented in this encounter Care Teams Beef Cattle Specialist Relationship Specialty Start Date End Date Kanu Lyn DO [address] [place] [address] PCP - General 03/27/06 09/04/11 documented as of this encounter
--- OUTSIDE RECORDS SUMMARY | 2025-07-31 23:13 | XMS_ITS | Encounter Summary ---
Author Organization [facility] Address [address] [place] [address] Care Team Providers Care Captain Waiter Name Role Phone Kanu Lyn DO Primary Care Provider [phone] Encounter Details Date Type Department Care Team (Latest Contact Info) Description 02/06/2006 Outpatient Historical [facility] Int MoyLatrell Dodge [place] [place] [address] Kanu Lyn DO [address] [place] [address] DM w/o Complication Type II (CMS/HCC) (Primary Dx); Other and Unspecified Hyperlipidemia; Osteoarth NOS-Unspec Social History Tobacco Use Types Packs/Day Years Used Date Smoking Tobacco: Never Assessed Comments Unknown Sex and Gender Information Value Date Recorded Sex Assigned at Not on file Legal Sex Female 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 Gender Identity Not on file Sexual Orientation Not on file documented as of this encounter Plan of Treatment Not on file documented as of this encounter Visit Diagnoses Diagnosis Type II or unspecified type diabetes mellitus without mention of complication, not stated as uncontrolled- Primary Other and unspecified hyperlipidemia Osteoarthrosis, unspecified whether generalized or localized, unspecified site documented in this encounter Care Teams Captain Waiter Relationship Specialty Start Date End Date Kanu Lyn DO [address] [place] [address] PCP - General 03/27/06 09/04/11 documented as of this encounter
--- OUTSIDE RECORDS SUMMARY | 2025-07-31 23:13 | XMS_ITS | Encounter Summary ---
Author Organization [facility] Address [address] [place] [address] Care Team Providers Care Bar Gauger And Lubricator Tender Name Role Phone Kanu Lyn DO Primary Care Provider [phone] Encounter Details Date Type Department Care Team (Late st Contact Info) Description 09/23/2007 Emergency [facility] Emergency Department [address] [place] [address] Ed, Physician NO ADDRESS ON FILE Suzanne Velazco NP NO ADDRESS ON FILE Closed Fracture of Surgical Neck of Humerus; DM w/o Complication Type II (CMS/HCC); Unspecified Essential Hypertension; Encounter for Long-Term (Current) Use of Insulin (CMS/HCC); Encounter for Long-Term (Current) Use of Other Medications; Personal History of Allergy to Narcotic Agent; Fall Resulting in Striking Against Other Object; Place of Occurrence, Home Social History Tobacco Use Types Packs/Day Years Used Date Smoking Tobacco: Never Assessed Comments Unknown Sex and Gender Information Value Date Recorded Sex Assigned at Not on file 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 Gender Identity Not on file Sexual Orientation Not on file documented as of this encounter Plan of Treatment Not on file documented as of this encounter Visit Diagnoses Diagnosis Closed fracture of surgical neck of humerus Type II or unspecified type diabetes mellitus without mention of complication, not stated as uncontrolled Unspecified essential hypertension Encounter for long-term (current) use of insulin (CMS/HCC) Encounter for long-term (current) use of insulin Encounter for long-term (current) use of other medications Personal history of allergy to narcotic agent Fall resulting in striking against other object Place of occurrence, home documented in this encounter Care Teams Bar Gauger And Lubricator Tender Relationship Specialty Start Date End Date Kanu Lyn DO [address] [address] PCP - General 03/27/06 09/04/11 documented as of this encounter
--- OUTSIDE RECORDS SUMMARY | 2025-07-31 23:13 | XMS_ITS | Encounter Summary ---
Author Organization [facility] Address [address] [place] [address] Care Team Providers Care Gas Mask Assembler Name Role Phone Kanu Lyn DO Primary Care Provider [phone] Encounter Details Date Type Department Care Team (Late st Contact Info) Description 02/13/2006 Outpatient Historical [facility] [address] [place] [address] Rian Meeks S, OD [address] [place] [address] DM w/o Complication Type II (CMS/HCC) (Primary Dx); Unspecified Senile Cataract Social History Tobacco Use Types Packs/Day Years Used Date Smoking Tobacco: Never Assessed Comments Unknown Sex and Gender Information Value Date Recorded Sex Assigned at Not on file 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
--- OUTSIDE RECORDS SUMMARY | 2025-07-31 23:13 | XMS_ITS | Encounter Summary ---
Author Organization [facility] Address [address] [place] [address] Care Team Providers Care Color Maker Dyer Name Role Phone Kanu Lyn DO Primary Care Provider [phone] Encounter Details Date Type Department Care Team (Latest Contact Info) Description 06/11/2007 Outpatient Historical [facility] Int MoyLatrell Dodge [place] [place] [address] Kanu Lyn DO [address] [place] [address] DM w/o Complication Type II (CMS/HCC) (Primary Dx) Social History Tobacco Use Types Packs/Day Years Used Date Smoking Tobacco: Never Assessed Comments Unknown Sex and Gender Information Value Date Recorded Sex Assigned at Not on file 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
--- OUTSIDE RECORDS SUMMARY | 2025-07-31 23:13 | XMS_ITS | Encounter Summary ---
Author Organization [facility] Address [address] [place] [address] Care Team Providers Care Custom Van Converter Name Role Phone Kanu Lyn DO Primary Care Provider [phone] Encounter Details Date Type Department Care Team (Latest Contact Info) Description 05/14/2007 Outpatient Historical [facility] Int MoyLatrell Dodge [place] [place] [address] Kanu Lyn DO [address] [place] [address] Allergy, Unspecified not Elsewhere Classified (Primary Dx) Social History Tobacco Use Types Packs/Day Years Used Date Smoking Tobacco: Never Assessed Comments Unknown Sex and Gender Information Value Date Recorded Sex Assigned at Not on file 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
--- OUTSIDE RECORDS SUMMARY | 2025-07-31 23:14 | XMS_ITS | Encounter Summary ---
Author Organization [facility] Address [address] [place] [address] Care Team Providers Care Automotive Assembler Name Role Phone Kanu Lyn DO Primary Care Provider Encounter Details Date Type Department Care Team (Latest Contact Info) Description 12/04/2006 Outpatient Historical [facility] Int Ger [place]-[address] [place] [address] Kanu Lyn DO [address] [place] [address] DM w/o Complication Type II (CMS/HCC) (Primary Dx); Unspecified Essential Hypertension; Routine Medical Exam Social History Tobacco Use Types Packs/Day Years Used Date Smoking Tobacco: Never Assessed Comments Unknown Sex and Gender Information Value Date Recorded Sex Assigned at Not on file 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
--- OUTSIDE RECORDS SUMMARY | 2025-07-31 23:14 | XMS_ITS | Encounter Summary ---
Author Organization [facility] Address [address] [place] [address] Care Team Providers Care Marble Setter Name Role Phone Kanu Lyn DO Primary Care Provider [phone] Encounter Details Date Type Department Care Team (Late st Contact Info) Description 10/13/2007 Outpatient Historical [facility] Orthopedics- 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
--- OUTSIDE RECORDS SUMMARY | 2025-07-31 23:14 | XMS_ITS | Encounter Summary ---
Author Organization [facility] Address [address] [place] [address] Care Team Providers Care Costume Shop Coordinator Name Role Phone Kanu Lyn DO Primary Care Provider Encounter Details Date Type Department Care Team (Late st Contact Info) Description 11/03/2007 Outpatient Historical [facility] Orthopedics- 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
--- OUTSIDE RECORDS SUMMARY | 2025-07-31 23:14 | XMS_ITS | Encounter Summary ---
Author Organization [facility] Address [address] [place] [address] Care Team Providers Care Strickler Attendant Name Role Phone Kanu Lyn DO Primary Care Provider [phone] Encounter Details Date Type Department Care Team (Late st Contact Info) Description 12/02/2007 Outpatient Historical [facility] Orthopedics- 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 SUBJECTIVE: The patient follows up today about two weeks out from her right proximal humerus fracture. She has noted significant improvement and a decrease in pain. 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 PHYSICAL EXAMINATION: She is much improved today; active forward elevation is to 150 degrees, abduction to 130 degrees. Passively I can get her to about 170 degrees with discomfort. She can hold her arm in 90 degrees of forward elevation. There are no overlying skin changes and distally she is neuro vascularly intact. RADIOGRAPHIC FINDINGS: Three views of her right shoulder were reviewed which show maintenance of alignment of her proximal humerus fracture. ASSESSMENT: Doing well status post right proximal humerus fracture. TREATMENT AND PLAN: She will continue with her physical therapy working on range of motion. I will see her back in six weeks or sooner if she has any problems. Wyatt Underwood M.D. [facility] Electronically Signed by Wyatt Underwood M.D. 12/08/2007 15:30 , A, mir Job #: Document #: [id number] cc: R INSERTER documented in this encounter Procedure Notes * Wyatt Underwood - 12/02/2007 12:00 AM CSTAssociated Order(s): IMAGING REPORT Date: 12/02/2007 Patient Name: Fany Moctezuma : 1950 Requesting Physician: RADIOGRAPHIC FINDINGS: Three views of her right shoulder were reviewed which show maintenance of alignment of her proximal humerus fracture. Wyatt Underwood M.D. [facility] Electronically Signed by Wyatt Underwood M.D. 12/08/2007 15:30 , A mir Job #: Document #: [id number] cc: (Not official until signed) R INSERTER documented in this encounter Plan of Treatment Not on file documented as of this encounter Procedures Procedure Name Priority Date/Time Associated Diagnosis Comments IMAGING REPORT 12/08/2007 3:31 PM PAPER INSERTER HEMOGLOBIN A1C Routine 12/08/2007 7:21 AM PAPER INSERTER documented in this encounter Results * IMAGING REPORT (12/08/2007 3:31 PM PAPER INSERTER) Narrative Transcriptions Wyatt Underwood. - 12/02/2007 12:00 AM CST Date: 12/02/2007 Patient Name: Fany Moctezuma : 1950 Requesting Physician: RADIOGRAPHIC FINDINGS: Three views of her right shoulder were reviewedwhich show maintenance of alignment of her proximal humerus fracture. Wyatt Underwood M.D. [facility] Electronically Signed by Wyatt Underwood M.D. 12/08/2007 15:30 , A [facility] Job #: Document #: [id number] cc: (Not official until signed) us Wyatt Underwood MD DIAGNOSTIC IMAGING ORDER SERA Final Result * (ABNORMAL) HEMOGLOBIN A1C (12/08/2007 7:21 AM PAPER INSERTER) HEMOGLOBIN A1C 6.2(H) 4.0 - 6.0 % [facility] 12/08/2007 7:21 AM PAPER INSERTER 12/08/2007 7:26 AM PAPER INSERTER Kanu Lyn DO CHEMISTRY ORDERABLES Final Res ult [facility] CLIA# [id number] [address] [place] [address] documented in this encounter Visit Diagnoses Not on filedocumented in this encounter Care Teams Strickler Attendant Relationship Specialty Start Date End Date Kanu Lyn DO [address] [place] [address] PCP - General 03/27/06 09/04/11 documented as of this encounter
--- OUTSIDE RECORDS SUMMARY | 2025-07-31 23:14 | XMS_ITS | Encounter Summary ---
Author Organization [facility] Address [address] [place] [address] Care Team Providers Care Program Professional Name Role Phone Kanu Lyn DO Primary Care Provider [phone] Encounter Details Date Type Department Care Team (Late st Contact Info) Description 12/10/2007 Outpatient Historical [facility] Ger [facility] [place] [place] [address] Kanu Lyn DO [address] [place] [address] Social History Tobacco Use Types Packs/Day Years Used Date Smoking Tobacco: Never Assessed Comments Unknown Sex and Gender Information Value Date Recorded Sex Assigned at Not on file Legal Sex Female 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 Pulse: 82. BP: 116/84. ALLERGIES: Penicillin MEDICATIONS: Metformin 1 g twice a day Lisinopril 5 mg daily Lipitor 20 mg daily Aspirin 81 mg daily Effexor 75 mg one daily CHRONIC PROBLEMS: CHRONIC PROBLEM LIST: Type 2 diabetes. Hyperlipidemia. Hypertension. Osteoarthritis. Dysthymia. HISTORY OF PRESENT ILLNESS: A 67-year-old white female on a six month followup regarding her diabetes. Does relatively well with no new physical complaints to bring to my attention today. Her labs were completed and reviewed with her today as well as her medications verified. REVIEW OF SYSTEMS: No report of any fevers or chills. PHYSICAL EXAM: GENERAL: Non-toxic female in no acute distress. VITAL SIGNS: As above. CV: Regular rhythm without murmur, clicks, or gallop. Nl S1 and S2. PULM: Clear to auscultation bilaterally without wheeze. No use of accessory muscles. Nl respiratory rate and rhythm. LABORATORY REVIEW: Hemoglobin A1c is 6.2. ASSESSMENT AND PLAN: Type 2 diabetes. Exceptional control with the metformin. Congratulated her on her excellent control of her diabetes. Recommended a yearly followup in three months with labs done just prior to that. I have referred her for a diabetic eye exam for which she is due. Her diabetic foot and neuro exams are current at the present time. She was educated and understands the current plan of management and will follow up with me for her physical in the next few months. Kanu Lyn D.O. Internal Medicine [place] [facility] [place] Electron[place] Signed by Kanu Lyn D.O. 12/18/2007 09:48 , [id number] Document #: [id number] cc: EN PRINTING MACHINE LOADER UNLOADER documented in this encounter Plan of Treatment Not on file documented as of this encounter Visit Diagnoses Not on filedocumented in this encounter Care Teams Program Professional Relationship Specialty Start Date End Date Kanu Lyn DO [facility] [address] [address] PCP - General 03/27/06 09/04/11 documented as of this encounter
--- OUTSIDE RECORDS SUMMARY | 2025-07-31 23:14 | XMS_ITS | Encounter Summary ---
Author Organization [facility] Address [address] [place] [address] Care Team Providers Care Processing Associate Name Role Phone Kanu Lyn DO Primary Care Provider [phone] Encounter Details Date Type Department Care Team (Latest Contact Info) Description 02/05/2007 Outpatient Historical [facility] Int MoyLatrell Dodge [place] [place] [address] Kanu Lyn DO [address] [place] [address] Routine Medical Exam (Primary Dx); Dysthymic Disorder; Unspecified Essential Hypertension; Other and Unspecified Hyperlipidemia Social History Tobacco Use Types Packs/Day Years Used Date Smoking Tobacco: Never Assessed Comments Unknown Sex and Gender Information Value Date Recorded Sex Assigned at Not on file 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
--- OUTSIDE RECORDS SUMMARY | 2025-07-31 23:14 | XMS_ITS | Encounter Summary ---
Author Organization [facility] Address [address] [place] [address] Care Team Providers Care Information Services Manager Name Role Phone Kanu Lyn DO Primary Care Provider Encounter Details Date Type Department Care Team (Latest Contact Info) Description 08/07/2006 Outpatient Historical [facility] [place] [place] [id number] Kanu Lyn DO [address] [place] [address] DM w/o Complication Type II (CMS/HCC) (Primary Dx); Unspecified Essential Hypertension; Dysuria; Vaccine for influenza Social History Tobacco Use Types Packs/Day Years Used Date Smoking Tobacco: Never Assessed Comments Unknown Sex and Gender Information Value Date Recorded Sex Assigned at Not on file 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 Gender Identity Not on file Sexual Orientation Not on file documented as of this encounter Plan of Treatment Not on file documented as of this encounter Visit Diagnoses Diagnosis Type II or unspecified type diabetes mellitus without mention of complication, not stated as uncontrolled- Primary Unspecified essential hypertension Dysuria Vaccine for influenza Need for prophylactic vaccination and inoculation against influenza documented in this encounter Care Teams Information Services Manager Relationship Specialty Start Date End Date Kanu Lyn DO [address] [place] [address] PCP - General 03/27/06 09/04/11 documented as of this encounter
--- OUTSIDE RECORDS SUMMARY | 2025-07-31 23:14 | XMS_ITS | Clinical Summary ---
Author Organization [facility] Address [address] [facility] Attn: [place] [address] Care Team Providers Care Supervisor Process Testing Name Role Phone Unavailable Primary Care Provider Unavailabl e Allergies Active Allergy Reactions Criticality Noted Date Comments Penicillins Unknown 02/27/2008 Active Problems Problem Noted Date Diagnosed Date HTN (hypertension) 12/22/2008 Overview (02/09/2021): Updating IMO/ICD9 Code and Description Routine general medical exam ination at a health care facility 03/03/2008 Type II diabetes mellitus 02/27/2008 Dysthymia 02/27/2008 Hyperlipidemia 02/27/2008 Osteoarthritis 02/27/2008 Resolved Problems Problem Noted Date Diagnosed Date Resolved Date Essential hypertension, benign 02/27/2008 12/22/2008 Immunizations Immunization Administration Dates Next Due (PNEUMOVAX 23)(50 YRS UP) PN EUMOCOCCAL POLYSACCHARIDE (PPV23) 0.5 ML, IM 07/14/2008,08/14/2005 Influenza Seasonal Unspecifi ed Formulation IM 07/25/2009,07/14/2008,08/07/2006,08/14 Family History Medical History Relation Name Comments Cataract Mother Macular Degen Mother Arthritis-osteo Other 1 Colon Cancer Other 1 multiple family members Migraines Other 1 Cancer Other 2 Hypertension Other 2 Relation Name Status Comments Mother Other 1 Other 2 Social History Tobacco Use Types Packs/Day Years Used Date Smoking Tobacco: Never Comments:Quit smoking: NO Alcohol Use Standard Drinks/Week Comments No 0 (1 standard drink = 0.6 oz pur e alcohol) Comments Unknown Sex and Gender Information Value Date Recorded Sex Assigned at Not on file Legal Sex Female 9:21 AM SOFTWARE QUALITY TESTER Gender Identity Not on file Sexual Orientation Not on file Plan of Treatment Health Maintenance Due Date Last Done Comments DIABETES ANNUAL FOOT EXAM 1967 DIABETES MICROALBUMIN ANNUAL SCREEN 1967 LDL CHOLESTEROL ANNUAL 1967 DTAP/TDAP/TD VACCINES (1 - Tdap) 02/05/1968 ZOSTER VACCINE (1 of 2) 1999 PNEUMOCOCCAL VACCINE 50+ YEA RS (2 of 2 - PCV) 07/14/2009 07/14/2008, 08/14/2005 DIABETES HBA1C Q 6 MONTHS 04/23/2010 10/24/2009 DIABETES ANNUAL RETINAL EXAM 06/01/2010 06/01/2009 OSTEOPOROSIS SCREENING 2014 RSV VACCINE (60+ or ) (1 - 1-dose 75+ series) 02/05/2024 INFLUENZA VACCINE (#1) 2025 9, 07/14/2008, 08/07/2006, Additional history exists
[2025-07-31 23:17] LABS: Hematocrit 39.9 % (36-47); Hemoglobin 13.50 g/dL (11.27-16.99); Mean Corpuscular HGB Conc 33.8 g/dL (30-55); Mean Corpuscular Hemoglobin 29.5 pg (27-33); Mean Corpuscular Volume 87.1 fl (85-98); Nucleated Red Blood Cells % 0 %; Platelet Count 240 10^3/cmm (157-399); Red Blood Count 4.58 10^6/uL (3.85-5.65); White Blood Count 7.35 10^3/uL (3.29-11.43)
[2025-07-31 23:23] LABS: Glucose Urine UA Norm (Normal); Nitrate Urine Negative (Negative); Specific Gravity, Urine 1.030 (1.005-1.030)
[2025-07-31 23:30] VITALS: BP 104/76; O2SAT 96
[2025-07-31 23:38] LABS: ABG PCO2 47.0 mmHg (35-45); ABG PH Result 7.41 (7.35-7.45); Arterial Blood Gas Hematocrit 41.3 % (37-47); Blood Gas LPM 3.0 %; Blood Gas Sample Site Brachial, left; Blood Gas Sample Type Arterial; Carboxyhemoglobin 1.0 %THgb (0.4-20.1); HCO3 ABG 29.5 mmol/L (22-26); Methemoglobin 0.9 % (0.4-1.5); PO2 ABG 89.3 mmHg (80.0-100.0)
--- NOTE | 2025-07-31 23:45 | XRR_ITS ---
PROCEDURE INFORMATION: Exam: XR Chest Exam date and time: 08/01/2025 12:04 AM Age: 75 years old Clinical indication: Shortness of breath; C/O SOB. History of copd. TECHNIQUE: Imaging protocol: Radiologic exam of the chest. Views: 1 view. COMPARISON: CR XR chest 1V portable [id number] 07/19/2023 7:56 PM FINDINGS: Lungs: Right lower lobe atelectasis versus infiltrate. Emphysematous changes. Pleural spaces: Unremarkable. No pleural effusion. No pneumothorax. Heart/Mediastinum: Unremarkable. No cardiomegaly. Vasculature: Aorta appears more prominent compared to prior exam, consider further evaluation with a CT scan. Bones/joints: Unremarkable. XR/XR chest 1V portable [id number] IMPRESSION: 1. Right lower lobe atelectasis versus infiltrate. 2. Emphysematous changes. 3. Aorta appears more prominent compared to prior exam, consider further evaluation with a CT scan.
[2025-08-01 00:01] LABS: Add Urine Microscopic? YES; UA Manual Slide Review YES
[2025-08-01 00:05] LABS: Alanine Aminotransferase 15 U/L (0-33); Albumin Level 4.8 g/dL (3.5-5.2); Alkaline Phosphatase 79 U/L (35-105); Blood Urea Nitrogen 39 mg/dL (8-23); Calcium 10.5 mg/dL (8.5-10.5); Carbon Dioxide 28 mmol/L (22-29); Chloride 98 mmol/L (98-107); Globulin 2.5 g/dL (1.3-4.6); Glucose 145 mg/dL (65-115); Lipase 23 U/L (13-60); Osmolality Calculated 302 mOsm/kg (285-295); Sodium 140 mmol/L (136-145); Thyroid Stimulating Hormone 2.13 uIU/mL (0.27-4.20); Total Protein 7.3 g/dL (6.6-8.7)
[2025-08-01 00:07] LABS: Anion Gap 18.5 (5-19); Creatinine Clr Calc Pharmacy 30.2015; Potassium 4.5 mmol/L (3.5-5.1)
[2025-08-01 00:08] LABS: Aspartate Amino Transferase 26 U/L (0-32)
[2025-08-01 00:53] VITALS: BP 104/74; O2SAT 97
[2025-08-01 00:55] LABS: NT Pro B Type Natriuretic Pept 175 pg/mL (0-450)
[2025-08-01 01:01] VITALS: BP 111/85; PULSE 86; RESP 20
== END 2025-08-01 01:39 | disposition home or self-care (01) ==
PROVIDERS: Emergency Provider Emergency Medicine; PCP Internal Medicine
DX: J18.9 Pneumonia, unspecified organism (principal); Z79.82 Long term (current) use of aspirin; Z87.891 Personal history of nicotine dependence; J44.9 Chronic obstructive pulmonary disease, unspecified; E78.5 Hyperlipidemia, unspecified; I12.9 Hypertensive chronic kidney disease with stage 1 through stage 4 chronic kidney disease, or unspecified chronic kidney disease; N18.9 Chronic kidney disease, unspecified
CPT/HCPCS: 36416; 36600; 70450; 71045; 80053; 81001; 82805; 82962; 83690; 83880; 84443; 85025; 93005; 99285; J9999